=== PATIENT | male | born 1980 | race Caucasian/White ===

== ENCOUNTER 2018-08-09 23:37 | Emergency (ER) | payer OTHER, SELFPAY ==
[2018-08-09 23:37] VITALS: BP 160/90; PULSE 61; RESP 17; TEMP 37.2; O2SAT 99; BMI 22.3
--- NOTE | 2018-08-10 00:09 | CT_ITS ---
HISTORY: abd pain with nausea x 1 day, emesis, c/o neck pain also EXAMINATION: CT Abdomen And Pelvis W/ Contrast TECHNIQUE: Helically acquired images were obtained of the abdomen and pelvis following IV contrast. A radiation dose optimization technique was used for this scan. IV Contrast dosage and agent: 100ml Isovue 370 Oral contrast: None. COMPARISON: None FINDINGS: Lower thorax: Clear. Food debris within the stomach lumen. Normal liver, spleen, pancreas, gallbladder, and biliary system. Both kidneys are normal in position. Bilateral renal opacification without evidence of hydronephrosis, pyelonephritis, or suspicious renal lesion. Adrenal glands are not enlarged. Normal abdominal aorta and IVC. No ascites or retroperitoneal lymph node enlargement. GI tract: No obstruction. Moderate to large colonic stool. Normal appendix. Pelvis: No free fluid or lymphadenopathy. Normal urinary bladder. Bones: No acute osseous abnormality. CT/Abdomen/Pelvis WITH Contrast IMPRESSION: 1. Constipation pattern. No acute disease seen. Normal appendix. Individualized dose optimization techniques were used for this CT. at 0326 Reported and signed by: Haresh Nixon MD Electronically Signed: Haresh Nixon, at 3:25 EDT Tel , Service support ,
--- NOTE | 2018-08-10 00:10 | ED.VISSUMM ---
- ER Visit Summary Date of Service: 08/10/18 Chief Complaint: Abdominal pain History of Present Illness: The patient is a 38 M who presents with abdominal pain that began today. Patient states the pain is gradually gotten worse over the past 4 hours. Patient describes the pain as burning and stabbing. Patient states the pain is diffuse across his abdomen but worse over the epigastric area. Patient admits to nausea but denies any vomiting. Patient denies any diarrhea, melena, or hematochezia. Patient denies any dysuria or hematuria. Patient states he does have some pain into his back. Patient also complains of some upper back and neck pain that has been persistent over the past couple weeks. Physical Examination: Vital signs are stable. Patient is afebrile. Patient is in no acute distress. Oral mucosa is pink and moist. Neck is supple. Trachea is midline. There is no JVD noted. Heart was regular rate and rhythm. Lungs are clear and equal bilaterally. Abdomen is soft. There is diffuse tenderness but worse in the epigastric area. There is no rebound or guarding noted. Cranial nerves II through XII are intact. There are no focal motor or sensory deficits noted. The remaining physical exam is within normal limits. Test Results: CBC and basic metabolic profile were obtained and were essentially within normal limits. BUN and creatinine were slightly elevated at [address] scan of the abdomen and pelvis was obtained. There is no acute abnormality noted. Emergency Department Course and Treatment: Patient was given IV fluids, morphine, and Zofran here. Patient felt better on reevaluation. Patient was sleeping on reevaluation. Patient was instructed to start with a bland diet and advance as tolerated. Patient was instructed to follow-up with his primary care physician for further evaluation of his abdominal pain. Patient and his understood and were agreeable with the plan. All questions were answered. Disposition: Discharge home Impression: Upper abdominal pain This note was generated with [employer] dictation software. It may contain incorrect words, spelling, and punctuation that were not noted in review of the chart prior to signing ED Disposition - Plan for ED Patient: Disposition: Home or Assisted Living Diagnosis: Upper abdominal pain of unknown etiology Instructions: ED Abdominal Pain Unkn Cause Referrals: Care Physician,No Primary [Primary Care Provider] - Teressa Daniels MD [COURTESY STAFF PHYSICIAN] - 5-7 Days
[2018-08-10] MEDS: Ondansetron 4 MG/2 ML Vial IV (00:20)
[2018-08-10] MEDS: Morphine 4 MG/ML Syringe IV (00:20)
[2018-08-10] MEDS: 0.9% Normal Saline 1,000 ML 1000 ML IV (00:20)
[2018-08-10 00:34] LABS: Absolute Lymphocyte Count 1.61 X10^3/ul (0.83-4.51); Absolute Neutrophil Count 5.4 X10^3/uL (2.0-7.7); Basophil# 0.02 X10^3/uL; Basophil% 0.3 % (0-1); Eosinophil# 0.07 X10^3/uL; Eosinophils% 0.9 % (0-5); Hematocrit 43.5 % (40-54); Hemoglobin 15.1 g/dl (13.0-16.5); Lymphocyte # 1.61 X10^3/ul (4.0); Lymphocyte % 21.6 % (19-41); Mean Corp Hgb Conc 34.7 g/gl (32-36); Mean Corpuscular Hgb 30.9 pg (27.0-32.0); Mean Corpuscular Volume 89.1 fL (80-94); Mean Platelet Vol. 10.2 fl (6.2-12.0); Monocyte# 0.36 X10^3/uL; Monocyte% 4.8 % (0-10); Neutrophil % 72.3 % (47-70); Platelet Count 213 K/mm3 (150-450); RBC Distribution Width CV 11.9 % (11.6-14.6); RBC Distribution Width SD 38.3 fl (35.1-43.9); Red Blood Count 4.88 M/mm3 (4.6-6.2); White Blood Count 7.5 K/mm3 (4.4-11.0)
[2018-08-10 00:36] LABS: POSITIVE COUNT NO; POSITIVE DIFFERENTIAL NO; POSITIVE MORPHOLOGY NO
[2018-08-10 00:37] LABS: ALB/GLOB Ratio 1.2 RATIO (0.9-2.4); AST(SGOT) 21 U/L (15-37); Alanine Aminotransfer ALT/SGPT 29 U/L (16-61); Albumin, Serum 3.9 g/dL (3.2-5.0); Alkaline Phosphatase 52 U/L (45-117); Anion Gap 7 (5-15); BUN 25 mg/dL (7-18); BUN/Creat Ratio 16.6 RATIO (10-20); Calcium,Total 8.6 mg/dL (8.5-10.1); Chloride 106 mmol/L (98-107); Creatinine, Serum 1.51 mg/dL (0.70-1.30); EST Glomerular Filtration Rate 55 mL/min (>60); Est Glom Filt Rate - Afr Amer 67 mL/min (>60); Estimated Creatinine Clearance 66.92 ml/min; Globulin 3.3 g/dL (2.2-4.2); Glucose 124 mg/dL (74-106); Lipase 132 U/L (73-393); Protein, Total 7.2 g/dL (6.4-8.2); Sodium Level 140 mmol/L (136-145)
[2018-08-10 02:19] LABS: Bacteria 0 SEEN /hpf (None Seen); Mucous, Urine 0 SEEN /hpf (<or=2+); Red Blood Cells-Urine 0 SEEN /hpf (0-5); Squamous Epithelial Cells - UA 0 SEEN /hpf (0-5); White Blood Cells 0 SEEN /hpf (0-5)
[2018-08-10 02:20] LABS: Color, Urine Yellow (Yellow); Glucose, Dipstick Normal (Normal); Ketone-Dipstick Negative (Negative); Leukocyte Esterase-Dipstick Negative /ul (Negative); Nitrite-Dipstick Negative (Negative); Occult Blood-Urine Negative /ul (Negative); Protein-Dipstick Negative (Negative); Specific Gravity, Urine 1.015 (1.002-1.030); Urine Bilirubin Dipstick Negative (Negative); Urine Clarity Clear (Clear); Urine Urobilinogen Normal (Normal)
[2018-08-10 03:50] VITALS: BP 130/90; PULSE 70; RESP 16; O2SAT 96
== END 2018-08-10 03:51 | disposition home or self-care (01) ==
PROVIDERS: Emergency Provider Emergency Medicine
DX: R10.10 Upper abdominal pain, unspecified (principal); F17.220 Nicotine dependence, chewing tobacco, uncomplicated
CPT/HCPCS: 74177; 80053; 81001; 83690; 85025; 96361; 96374; 96375; 99283; J7030; Q9967; A4216; J2405

== ENCOUNTER 2023-12-30 20:20 | Emergency (ER) | payer OTHER, SELFPAY ==
[2023-12-30 20:21] VITALS: BP 129/87; PULSE 92; RESP 16; TEMP 37.3; O2SAT 99; BMI 26.8
[2023-12-30 22:21] VITALS: BP 120/84; PULSE 88; RESP 20; O2SAT 94
[2023-12-30] MEDS: predniSONE 20 MG Tablet 60 MG PO (22:47)
[2023-12-30] MEDS: Albuterol Sulfate 8 gm Inhaler (60 puffs) 4 PUFF INHALATION (22:47)
[2023-12-30 22:50] LABS: Absolute Lymphocyte Count 1.87 X10^3/uL (0.83-4.51); Absolute Neutrophil Count 9.4 X10^3/uL (2.0-7.7); Basophil# 0.08 X10^3/uL; Basophil% 0.6 % (0-1); Eosinophil# 0.12 X10^3/uL; Hematocrit 41.5 % (40-54); Lymphocyte # 1.87 X10^3/ul (0.83-4.51); Lymphocyte % 15.1 % (19-41); Mean Corp Hgb Conc 33.7 g/dL (32-36); Mean Corpuscular Hgb 29.4 pg (27.0-32.0); Mean Corpuscular Volume 87.2 fL (80-94); Mean Platelet Vol. 9.3 fl (6.2-12.0); Monocyte# 0.81 X10^3/uL; Monocyte% 6.6 % (0-10); NRBC Flagged by Analyzer 0 % (0-5); Neutrophil # 9.35 X10^3/uL (2.7-7.7); Neutrophil % 75.6 % (47-70); Platelet Count 354 K/mm3 (150-450); RBC Distribution Width CV 11.5 % (11.6-14.6); RBC Distribution Width SD 37.2 fl (35.1-43.9); Red Blood Count 4.76 M/mm3 (4.6-6.2); White Blood Count 12.4 K/mm3 (4.4-11.0)
--- NOTE | 2023-12-30 22:55 | RAD_ITS ---
INDICATION: Fever, cough, wheezing x 10 days EXAMINATION/TECHNIQUE: X-RAY - XR Chest 2 Views COMPARISON: July 01, 2005. FINDINGS: LINES/DEVICES: None. LUNGS: No consolidation, edema or effusion. Mild bilateral peribronchial thickening, most prominent in the lung bases. No pneumothorax. MEDIASTINUM AND CARDIOVASCULAR STRUCTURES: Cardiac silhouette not enlarged. BONES AND SOFT TISSUES: Unremarkable. RAD/Chest PA and Lateral IMPRESSION: No radiographic evidence of consolidative airspace disease. Mild peribronchial thickening as can be seen with bronchitis/bronchiolitis Electronically Signed: Haresh Anthony MD at 23:28 EDT ,
[2023-12-30 23:23] LABS: ALB/GLOB Ratio 0.6 RATIO (0.9-2.4); AST(SGOT) 38 U/L (15-37); Alanine Aminotransfer ALT/SGPT 65 U/L (16-61); Alkaline Phosphatase 56 U/L (45-117); Anion Gap 6 (5-15); BUN 12 mg/dL (7-18); BUN/Creat Ratio 10.9 RATIO (10-20); Calcium,Total 9.3 mg/dL (8.5-10.1); Chloride 99 mmol/L (98-107); EST Glomerular Filtration Rate 78 mL/min (>60); Est Glom Filt Rate - Afr Amer 94 mL/min (>60); Estimated Creatinine Clearance 93.17 ml/min; Globulin 4.7 g/dL (2.2-4.2); Glucose 107 mg/dL (74-106); Potassium 3.3 mmol/L (3.5-5.1); Protein, Total 7.7 g/dL (6.4-8.2); Sodium Level 134 mmol/L (136-145)
--- NOTE | 2023-12-30 23:36 | EX.ED.DYSGE1 ---
HPI History of Present Illness Chief Complaint: Cold Sx Detail of Chief Complaint: Respiratory symptoms and illness x 10 days Informant: patient and spouse/S.O. Onset/Context/Timing Onset: Weeks (1.5) Context: Sudden Onset Timing: Continuous and Waxes and wanes Quality: Detailed HPI narrative Location: [facility] Current Severity: Mild Maximum Severity: Moderate Worsened by: Dyspnea with exertion, wheezing Relieved by: Nothing Associated Symptoms Associated Symptoms: Respiratory and episode of diarrhea Narrative Narrative: Patient is a 43-year-old healthy male with no significant past medical history on no medication and no allergies who presents with illness that started 10 days ago. He Tmax of 104.5 degrees. He complains of fatigue, lack of energy, dyspnea and dyspnea on exertion. He denies headache. He denies ocular, visual or auditory symptoms. He does endorse congestion and slight sore throat. He does have a cough that he states is horrible . And is productive. He is a non-smoker. He has not had an alcoholic beverage in weeks. His and son were ill approximately a week ago. He does endorse aches. He denies joint swelling. He does have a rash on his chest. He has had some intermittent nausea without vomiting. He did have episode of diarrhea earlier in the illness What concern patient was the persistent fever and the fact that he has no energy and unable to work. 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 Prior similar symptoms: Yes Recent Illness/Hospitalization: No PFSH PFSH Medical History no medical history no medical history Home Medications ?Medication ?Instructions ?Recorded ?Last Taken ?Type doxycycline monohydrate 100 mg 100 mg PO BID #14 CAPSULES 12/30/23 Unknown Rx capsule prednisone 20 mg tablet 60 mg (3 x 20 mg) PO DAILY #12 12/30/23 Unknown Rx TABLETS Allergy/AdvReac Type Severity Reaction Status Date / Time No Known Allergies Allergy Verified 12/30/23 20:24 Surgical History H/O right knee surgery Social History (Updated 12/30/23 @ 23:[address] Yayo Calixto MD) household members: spouse and children Smoking Status: Never smoker details: Social substance use type: does not use ROS ROS ED Constitutional Constitutional ED: Reports chills and fever(s); Denies subjective, sweats or weight loss Eyes Eyes: Denies blurry vision or change in vision ENT ENT ED: Reports rhinorrhea and sore throat; Denies ear pain Cardiovascular Cardiovascular: Denies chest pain, orthopnea, palpitations or paroxysmal nocturnal dyspnea Respiratory/Chest Respiratory/Chest: Reports cough, dyspnea and dyspnea on exertion; Denies orthopnea or paroxysmal nocturnal dyspnea Gastrointestinal Gastrointestinal: Reports diarrhea and nausea; Denies abdominal pain, constipation, melena or vomiting Genitourinary Genitourinary ED: Denies dysuria, hematuria or urinary frequency Musculoskeletal Musculoskeletal: Reports arthralgias and myalgias; Denies back pain or neck pain Integumentary Reports rash Neurologic Neurologic: Reports weakness; Denies headache(s) or paresthesias Hematologic/Lymphatic Hematologic/Lymphatic: Reports systems reviewed and no addt'l complaints, except as documented EXAM Physical Exam Const Vital Signs: 12/30/23 20:21 12/30/23 22:21 12/30/23 22:36 Temperature 99.1 F Temperature Source Oral Pulse Rate 92 88 Respiratory Rate 16 20 H Respiratory Effort Short of Breath Respiratory Pattern Tachypnea Blood Pressure 129/87 H 120/84 H Blood Pressure Mean 101 96 Pulse Ox 99 94 Oxygen Delivery Method Room Air Room Air 12/30/23 22:39 Temperature Temperature Source Pulse Rate Respiratory Rate Respiratory Effort Short of Breath Respiratory Pattern Tachypnea Blood Pressure Blood Pressure Mean Pulse Ox Oxygen Delivery Method Room Air Positive well nourished and well developed Constitutional Narrative: Patient appears ill. Does not appear toxic. Vital signs are marked for tachypnea. He is not hypoxic or febrile. He did not take antipyretic prior to arrival. General Appearance ED: well developed and NAD; Negative for cyanotic, diaphoretic or pallor HEENT Reports TM's clear and moist mucous membranes HEENT Narrative: Nares patent with no discharge. Posterior pharynx is normal. Tympanic Membrane ED: Yes TM's clear Eyes PERRL and EOMs intact bilaterally General Eye ED: Negative for pale conjunctiva or scleral icterus Neck no lymphadenopathy, supple and no JVD Chest Wall palpation of chest normal; Negative for inspection of chest normal Chest Narrative: Patient has evidence of folliculitis. Resp normal respiratory effort and No clear to auscultation bilaterally Auscultation: wheezes expiratory wheezes and throughout Cardio regular rate, regular rhythm, S1 normal heart sound, S2 normal heart sound and no murmurs GI normal to inspection, nondistended, normoactive bowel sounds, non-tender, non-distended and no masses; Negative for hepatosplenomegaly Back/Spine no CVA tenderness Extremity normal to inspection General Extremety ED: Negative for edema or tenderness General Extremity: Negative for edema Neuro oriented x3 and CN's II-XII intact bilaterally Sensorium / Orientation: alert Psych mental status grossly normal Skin No no rashes or lesions noted, no wounds and skin turgor normal Skin Narrative: Patient's rash is consistent with folliculitis. General Skin Exam: elasticity normal; Negative for jaundice or pallor MDM MDM MDM Narrative Medical decision making narrative: Nurse protocol orders were initiated. Differential diagnosis is viral infection, bacterial infection with pneumonia. Since he is wheezing is never used inhaler had respiratory therapy instructed how to use the inhaler. He also was treated with prednisone since he has been wheezing since last Friday. CBC was obtained assess white count differential. BMP to assess renal function. Chest x-ray was obtained. History & Record Review Discussion w/independent historian: Patient and Significant other Lab Data Attestation: I reviewed the patient's lab results. Lab results narrative: White count is elevated 12.4 thousand with shift. There is no bandemia. No evidence of anemia. Comprehensive metabolic panel is remarkable for elevated AST and ALT which may represent atypical pneumonia i.e. mycoplasma. Rapid antigen for COVID, influenza and RSV was negative. Labs: Laboratory Results - last 24 hr 12/30/23 22:39 WBC 12.4 H RBC 4.76 Hgb 14.0 Hct 41.5 MCV 87.2 MCH 29.4 MCHC 33.7 RDW Std Deviation 37.2 RDW Coeff of Rachana 11.5 L Plt Count 354 MPV 9.3 Immature Gran % (Auto) 1.100 H Neut % (Auto) 75.6 H Lymph % (Auto) 15.1 L Eagle % (Auto) 6.6 Eos % (Auto) 1.0 Baso % (Auto) 0.6 Absolute Neuts (auto) 9.4 H Absolute Lymphs (auto) 1.87 Nucleated RBC % 0 Sodium 134 L Potassium 3.3 L Chloride 99 Carbon Dioxide 29.0 Anion Gap 6 BUN 12 Creatinine 1.10 Estim Creat Clear Calc 93.17 Est GFR (MDRD) Af Amer 94 Est GFR (MDRD) Non-Af 78 BUN/Creatinine Ratio 10.9 Glucose 107 H Calcium 9.3 Total Bilirubin 0.60 AST 38 H ALT 65 H Alkaline Phosphatase 56 Total Protein 7.7 Albumin 3.0 L Globulin 4.7 H Albumin/Globulin Ratio 0.6 L Radiography Chest X-Ray - ED: 2 View and Read by ED Physician (Normal cardiac silhouette and size. There is evidence of atelectasis right lower lobe. There is some abnormal findings perihilar region. There is no Insa pneumothorax or effusion. [place] structures unremarkable.) Diagnostic Testing: Clinical Impression(s) from Imaging Studies Chest X-Ray 12/30/23 22:55 IMPRESSION: No radiographic evidence of consolidative airspace disease. Mild peribronchial thickening as can be seen with bronchitis/bronchiolitis Electronically Signed: Haresh Anthony MD at 23:28 EDT Reading Location ID and State: [facility] / [place] Tel , Service support , Treatment and Re-Evaluation :: Patient was reassessed at 2338. His wheezing had improved markedly with albuterol metered-dose inhaler. He was given first dose of doxycycline in the emergency department. He was discharged with prescription for prednisone and doxycycline. The inhaler was given to the patient. Discharge Plan Triage Chief Complaint: Cold Sx ED Provider: Yayo Calixto Dx/Rx/DC Orders Clinical Impression: Fever in adult, Purulent bronchitis, Acute bronchospasm, Leukocytosis, Elevated transaminase level Instructions: ED Upper Resp Infec Abx Tx, ED Bronchitis with Wheezing (Adult) Prescriptions: New prednisone 20 mg tablet 60 mg PO DAILY Qty: 12 0RF doxycycline monohydrate 100 mg capsule 100 mg PO BID Qty: 14 0RF Primary Care Provider: Chris Little Referrals: Chris Little, [Primary Care Provider] - 3-5 Days if not improving Activity Restrictions/Additional Instructions: 2 puffs of inhaler every 2-4 hours while awake for the next 3 to 5 days then every 4-6 hours as needed for wheezing Take prednisone and antibiotics until gone Print Language: Tamazight Disposition Disposition: Home, Self Care
[2023-12-30] MEDS: Doxycycline 100 MG CAPSULE PO (23:46)
[2023-12-30 23:47] VITALS: BP 127/87; PULSE 92; RESP 16; TEMP 36.6; O2SAT 99
== END 2023-12-30 23:52 | disposition home or self-care (01) ==
PROVIDERS: Emergency Provider Emergency Medicine; PCP Student in an Organized Health Care Education/Training Program; Visit Provider Emergency Medicine
DX: J41.1 Mucopurulent chronic bronchitis (principal); D72.829 Elevated white blood cell count, unspecified; R74.01 Elevation of levels of liver transaminase levels; R50.9 Fever, unspecified
CPT/HCPCS: 71046; 80053; 85025; 87631; 99285; J7030; A4216

== ENCOUNTER → 2024-10-09 | Outpatient (CLI) | payer OTHER, SELFPAY ==
--- OUTSIDE RECORDS SUMMARY | 2024-10-09 10:46 | XMS RPT_ITS | CCD ---
Author Organization [facility] Inform ion Partnership [facility] Care Team Providers Care Machine Ii Engraver Name Role Phone Unavailable Primary Care Provider Unavailfranklin e Chris Forrester DO Primary Care Provider [phone] Lashonda Wolff MD Unavailable CHRIS FORRESTER Referring Unavailable CHRIS FORRESTER Primary Care Unavailable Lashonda Wolff MD Unavailable Chris Forrester DO Primary Care Provider CHRIS FORRESTER Referring Unavailable CHRIS FORRESTER Primary Care Unavailable CHRIS FORRESTER Primary Care Unavailable LASHONDA WOLFF Attending Unavailable CHRIS FORRESTER Primary Care Unavailable LASHONDA WOLFF Referring Unavailable CHRIS FORRESTER Referring Unavailable AZUL KLEIN Attending Unavailable CHRIS FORRESTER Primary Care Unavailable CHRIS FORRESTER Primary Care Unavailable LASHONDA WOLFF Attending Unavailable CHRIS FORRESTER Primary Care Unavailable CHRIS FORRESTER Referring Unavailable CRHIS FORRESTER Primary Care Unavailable CHRIS FORRESTER Referring Unavailable CHRIS FORRESTER Primary Care Unavailable CHRIS FORRESTER Referring Unavailable CHRIS FORRESTER Attending Unavailable CHRIS FORRESTER Primary Care Unavailable CHRIS FORRESTER Primary Care Unavailable LASHONDA WOLFF Referring Unavailable CHRIS FORRESTER Attending Unavailable CHRIS FORRESTER Primary Care Unavailable Yayo Calixto Attending Unavailable Chris Forrester Primary Care Unavailable Medications Current Medications Medication Drug Class(es) Dates Sig (Normalized) Sig (Original) DAILY MULTI-VITAMIN ORAL (12 sources) DAILY MULTI-VITAMIN ORAL Take by mouth once daily. 0 Active Comment on above: Take by mouth once d aily. docusate sodium 100 mg oral capsule (12 sources) Start: 08-09-2011 take 1 capsule by mouth twice daily docusate sodium (COLACE) 100 mg ORAL capsule Take 1 capsule by mouth twice daily. 28 capsule 0 08/09/2011 Active Comment on above: Take 1 capsule by mo [facility] twice daily. iv contrast (will be provided with radiology test) (3 sources) Start: 07-12-2023 iv contrast (will be provided with radiology test) MRI Cardiac w/Qflow Inject, intravenously, once for 1 dose. No IV access, insert saline lock prior to the beginning of sedation, infusion, injection of imaging exam. Discontinue saline lock post exam. If Pt has a central line or IVAD, may access for administration according to line specific nursing protocol. Once exam is complete flush line and de-access according to line specific nursing protocol in the MR contrast administration guidelines link 1 Each 0 07/12/2023 Active Comment on above: MRI Cardiac w/Qflow Inject, intravenously, once for 1 dose. No IV access, insert saline lock prior to the beginning of sedation, infusion, injection of imaging exam. Discontinue saline lock post exam. If Pt has a central line or IVAD, may access for administration according to line specific nursing protocol. Once exam is complete flush line and de-access according to line specific nursing protocol in the MR contrast administration guidelines link 24 hr metoprolol succinate 25 mg extended release oral tablet (4 sources) beta-Adrenergic Ramon Start: 07-12-2023 End: 07-11-2024 take 1 tablet by mouth once daily metoprolol succinate ER (TOPROL XL) 25 mg 24 hr tablet Take 1 tablet by mouth once daily. 30 tablet 11 07/12/2023 07/11/2024 Active Comment on above: Take 1 tablet by [facility] once daily. sulfamethoxazole 800 mg / trimethoprim 160 mg oral tablet (12 sources) Dihydrofolate Reductase Inhibitor Antibacterial, Sulfonamide Antimicrobial Start: 08-20-2011 take 1 tablet by mouth twice daily sulfamethoxazole-t rimethoprim 800-160 mg ORAL per tablet Take 1 tablet by mouth twice daily. 14 tablet 0 08/20/2011 Active Comment on above: [facility] Problems Active Problems Problem Classification Problem Date Documented Da te Episodic/Chronic Cardiac dysrhythmias (2 sources) Ventricular tachycardia; Translations: [VT (ventricular tachycardia) (HCC)] 07-12-2023 Chronic Disorders of lipid metabolism (4 sources) Mixed hyperlipidemia; Translations: [Mixed hyperlipidemia] Onset: 05-07-2023 05-07-2023 Chronic Heart valve disorders (17 sources) Mitral valve prolapse; Translations: [Nonrheumatic mitral (valve) prolapse] Onset: 02-19-2023 02-19-2023 Chronic Malaise and fatigue (5 sources) Fatigue; Translations: [Other fatigue] Onset: 05-07-2023 05-07-2023 Episodic Unclassified (1 source) VT (ventricular tachycardia) (HCC); Translations: [VT (ventricular tachycardia) (HCC)] Onset: 10-08-2023 Past or Other Problems Problem Classification Problem Date Documented Da te Episodic/Chronic Abdominal hernia (5 sources) Umbilical hernia; Translations: [Umbilical hernia without obstruction or gangrene] Onset: 04-15-2023 05-07-2023 Episodic Cardiac dysrhythmias (13 sources) Palpitations; Translations: [Palpitations] Onset: 02-19-2023 02-19-2023 Episodic Fracture of lower limb (12 sources) Fracture of patella; Translations: [Unspecified fracture of right patella, initial encounter for closed fracture] Onset: 04-04-2011 04-04-2011 Episodic Nonspecific chest pain (14 sources) Chest pain; Translations: [Other chest pain] Onset: 02-19-2023 02-19-2023 Episodic Other and unspecified benign neoplasm (10 sources) Dysplastic nevus of trunk; Translations: [Melanocytic nevi of trunk] Onset: 02-19-2023 02-19-2023 Episodic Other and unspecified benign neoplasm (1 source) Melanocytic nevi of trunk; Translations: [Atypical nevus of abdominal wall] Onset: 02-19-2023 Episodic Other gastrointestinal disorders (11 sources) Finding of abdominopelvic segment of trunk; Translations: [Intra-abdominal and pelvic swelling, mass and lump, unspecified site] Onset: 02-19-2023 02-19-2023 Episodic Other gastrointestinal disorders (1 source) Intra-abdominal and pelvic swelling, mass and lump, unspecified site; Translations: [Intra-abdominal and pelvic swelling, mass and lump, unspecified site] Onset: 02-19-2023 Episodic Other injuries and conditions due to external causes (1 source) Open wound; Translations: [Other injury of unspecified body region, initial encounter] Onset: 08-20-2011 Resolved: 08-27-2011 08-27-2011 Episodic Other lower respiratory disease (11 sources) Chronic cough; Translations: [Chronic cough] Onset: 02-19-2023 02-19-2023 Episodic Residual codes; unclassified (11 sources) Family history of sudden cardiac ; Translations: [Family history of sudden cardiac ] Onset: 02-19-2023 02-19-2023 Episodic Residual codes; unclassified (11 sources) FH: premature coronary heart disease; Translations: [Family history of ischemic heart disease and other diseases of the circulatory system] Onset: 02-19-2023 02-19-2023 Episodic Residual codes; unclassified (2 sources) Family history of ischemic heart disease and other diseases of the circulatory system; Translations: [Family history of premature coronary artery disease] Onset: 02-19-2023 Episodic Residual codes; unclassified (2 sources) Family history of sudden cardiac ; Translations: [Family history of sudden cardiac in father] Onset: 02-19-2023 Episodic Results Test Name Value Interpretation Reference Range Facility CBC W/Diff, Automatedon 09-0 -2023 Absolute Lymph 1.87 X10 3/uL Normal 0.83-4.51 [facility] Comment on above: Performed By: #### L 100.0100, L500.4050 #### [facility] [address] [place], [address] Absolute Neut 9.4 X10 3/uL High 2.0-7.7 [facility] Comment on above: Performed By: #### L 100.0100, L500.4050 #### [facility] [address] [place], [address] Basophils/100 WBC (Bld) 0.6 % Normal 0-1 [facility] Comment on above: Performed By: #### L 100.0100, L500.4050 #### [facility] [address] [place], [address] Eosinophils/100 WBC (Bld) 1.0 % Normal 0-5 [facility] Comment on above: Performed By: #### L 100.0100, L500.4050 #### [facility] [address] [place], [address] Erythrocyte distribution width (RBC) [Ratio] 11.5 % Low 11.6-14.6 [facility] Comment on above: Performed By: #### L 100.0100, L500.4050 #### [facility] [address] [place], [address] Hematocrit (Bld) [Volume fraction] 41.5 % Normal 40-54 [facility] Comment on above: Performed By: #### L 100.0100, L500.4050 #### [facility] [address] [place], [address] Hemoglobin (Bld) [Mass/Vol] 14.0 g/dL Normal 13.0-16.5 [facility] Comment on above: Performed By: #### L 100.0100, L500.4050 #### [facility] [address] [place], [address] IG% 1.100 High 0.0-0.9 [facility] Comment on above: Result Comment: IG% - Immature Granulocytes (promyelocytes, myelocytes and metamyelocytes) > 1% indicates that a LEFT SHIFT is Present. Performed By: #### L 100.0100, L500.4050 #### [facility] [address] [place], [address] Lymphocytes/100 WBC (Bld) 15.1 % Low 19-41 [facility] Comment on above: Performed By: #### L 100.0100, L500.4050 #### [facility] [address] [place], [address] MCH (RBC) [Entitic mass] 29.4 pg Normal 27.0-32.0 [facility] Comment on above: Performed By: #### L 100.0100, L500.4050 #### [facility] [address] [place], [address] MCHC (RBC) [Mass/Vol] 33.7 g/dL Normal 32-36 [facility] Comment on above: Performed By: #### L 100.0100, L500.4050 #### [facility] [address] [place], [address] MCV (RBC) [Entitic vol] 87.2 fL Normal 80-94 [facility] Comment on above: Performed By: #### L 100.0100, L500.4050 #### [facility] [address] [place], [address] Monocytes/100 WBC (Bld) 6.6 % Normal 0-10 [facility] Comment on above: Performed By: #### L 100.0100, L500.4050 #### [facility] [address] [place], [address] Neutrophils/100 WBC (Bld) 75.6 % High 47-70 [facility] Comment on above: Performed By: #### L 100.0100, L500.4050 #### [facility] [address] [place], [address] Nucleated RBC (Bld) [#/Vol] 0 10*3/uL Normal 0-5 [facility] Comment on above: Performed By: #### L 100.0100, L500.4050 #### [facility] [address] [place], [address] Platelet mean volume (Bld) [Entitic vol] 9.3 fL Normal 6.2-12.0 [facility] Comment on above: Performed By: #### L 100.0100, L500.4050 #### [facility] [address] [place], [address] Platelets (Bld) [#/Vol] 354 10*3/uL Normal 150-450 [facility] Comment on above: Performed By: #### L 100.0100, L500.4050 #### [facility] [address] [place], [address] RBC (Bld) [#/Vol] 4.76 10*6/uL Normal 4.6-6.2 [facility] Comment on above: Performed By: #### L 100.0100, L500.4050 #### [facility] [address] [place], [address] RDW SD 37.2 fl Normal 35.1-43.9 [facility] Comment on above: Performed By: #### L 100.0100, L500.4050 #### [facility] [address] [place], [address] WBC (Bld) [#/Vol] 12.4 10*3/uL High 4.4-11.0 [facility] Comment on above: Performed By: #### L 100.0100, L500.4050 #### [facility] [address] [place], [address] Chest PA and Lateralon 12-29 Chest PA and Lateral [facility] [address] [place] [address] Chest PA and Lateral MR#: [id number] Acct: [id number] Name: ALL GASTELUM Rep #: [id number] : 1980 M 43 From: Haresh Anthony MD PCP: Dr. Chris Forrester, Status: [facility] ER Study: Chest PA and Lateral Date of Exam: 12/30/23 Exam# [id number] Ordering Dr: [place] [id number] INDICATION: Fever, cough, wheezing x 10 days EXAMINATION/TECHNIQUE: X-RAY - XR Chest 2 Views COMPARISON: July 01, 2005. FINDINGS: LINES/DEVICES: None. LUNGS: No consolidation, edema or effusion. Mild bilateral peribronchial thickening, most prominent in the lung bases. No pneumothorax. MEDIASTINUM AND CARDIOVASCULAR STRUCTURES: Cardiac silhouette not enlarged. BONES AND SOFT TISSUES: Unremarkable. RAD/Chest PA and Lateral IMPRESSION: No radiographic evidence of consolidative airspace disease. Mild peribronchial thickening as can be seen with bronchitis/bronchioliti s Electronically Signed: Haresh Anthony MD at 23:28 EDT , CC: Dr. Chris Forrester, ; Dr. Yayo Calixto MD 911 Operator: Signed Normal [facility] Comprehensive Metabolic Prof ilon 12-30-2023 Albumin [Mass/Vol] 3.0 g/dL Low 3.2-5.0 [facility] Comment on above: Performed By: #### L 100.0100, L500.4050 #### [facility] [address] [place], [address] Albumin/Globulin [Mass ratio] 0.6 {ratio} Low 0.9-2.4 [facility] Comment on above: Performed By: #### L 100.0100, L500.4050 #### [facility] [address] [place], [address] ALK P 56 U/L Normal 45-117 [facility] Comment on above: Performed By: #### L 100.0100, L500.4050 #### [facility] [address] [place], [address] ALT [Catalytic activity/Vol] 65 U/L High 16-61 [facility] Comment on above: Performed By: #### L 100.0100, L500.4050 #### [facility] [address] [place], [address] AST [Catalytic activity/Vol] 38 U/L High 15-37 [facility] Comment on above: Performed By: #### L 100.0100, L500.4050 #### [facility] [address] [place], [address] Bilirubin [Mass/Vol] 0.60 mg/dL Normal 0.20-1.00 [facility] Comment on above: Result Comment: For patients on eltrombopag therapy, use of Dimension [place] TBIL is not recommended. Performed By: #### L 100.0100, L500.4050 #### [facility] [address] [place], [address] BUN/CRE 10.9 RATIO Normal 10-20 [facility] Comment on above: Performed By: #### L 100.0100, L500.4050 #### [facility] [address] [place], [address] CA,Total 9.3 mg/dL Normal 8.5-10.1 [facility] Comment on above: Performed By: #### L 100.0100, L500.4050 #### [facility] [address] [place], [address] Chloride [Moles/Vol] 99 mmol/L Normal 98-107 [facility] Comment on above: Performed By: #### L 100.0100, L500.4050 #### [facility] [address] [place], [address] CO2 [Moles/Vol] 29.0 mmol/L Normal 21.0-32.0 [facility] Comment on above: Performed By: #### L 100.0100, L500.4050 #### [facility] [address] [place], [address] Creatinine [Mass/Vol] 1.10 mg/dL Normal 0.70-1.30 [facility] Comment on above: Result Comment: The validity of the calculated GFR GFRAA in patients over 70 years has not been determined. Clinical correlation is essential. Performed By: #### L 100.0100, L500.4050 #### [facility] [address] [place], [address] ECRCL 93.17 ml/min Normal [facility] Comment on above: Performed By: #### L 100.0100, L500.4050 #### [facility] [address] [place], [address] EST GFR - AA 94 mL/min Normal >60 [facility] Comment on above: Result Comment: Afri can Dutch GFR Calc Performed By: #### L 100.0100, L500.4050 #### [facility] [address] [place], [address] GAP 6 Normal 5-15 [facility] Comment on above: Performed By: #### L 100.0100, L500.4050 #### [facility] [address] [place], [address] GFR/1.73 sq M.predicted among non-blacks MDRD (S/P/Bld) [Vol rate/Area] 78 mL/min/{1.73_m2} Normal >60 [facility] Comment on above: Result Comment: Non- GFR Calc Performed By: #### L 100.0100, L500.4050 #### [facility] [address] [place], [address] Globulin (S) [Mass/Vol] 4.7 g/dL High 2.2-4.2 [facility] Comment on above: Performed By: #### L 100.0100, L500.4050 #### [facility] [address] [place], [address] Glucose [Mass/Vol] 107 mg/dL High 74-106 [facility] Comment on above: Result Comment: Fast ing Glucose result from 100 to 125 mg/dL suggests IMPAIRED HOMEOSTASIS per A.D.A. criteria. Performed By: #### L 100.0100, L500.4050 #### [facility] [address] [place], [address] Potassium [Moles/Vol] 3.3 mmol/L Low 3.5-5.1 [facility] Comment on above: Performed By: #### L 100.0100, L500.4050 #### [facility] [address] [place], [address] Sodium [Moles/Vol] 134 mmol/L Low 136-145 [facility] Comment on above: Performed By: #### L 100.0100, L500.4050 #### [facility] [address] [place], [address] T PROT 7.7 g/dL Normal 6.4-8.2 [facility] Comment on above: Performed By: #### L 100.0100, L500.4050 #### [facility] [address] [place], [address] Urea nitrogen [Mass/Vol] 12 mg/dL Normal 7-18 [facility] Comment on above: Performed By: #### L 100.0100, L500.4050 #### [facility] [address] [place], [address] Emergency Department Summary on 12-30-2023 Emergency Department Summary [facility] Medical Records Department [address] [place] [address] Emergency Department Summary 12/30/23 MR#: [id number] Acct: [id number] Name: ALL GASTELUM Rep #: [id number] : 1980 43 From: Yayo Calixto MD PCP: Dr. Chris Forrester, DO Status:REG ER Location: ED HPI History of Present Illness Chief Complaint: Cold Sx Detail of Chief Complaint: Respiratory symptoms and illness x 10 days Informant: patient and spouse/S.O. Onset/Context/Timing Onset: Weeks (1.5) Context: Sudden Onset Timing: Continuous and Waxes and wanes Quality: Detailed HPI narrative Location: [facility] Current Severity: Mild Maximum Severity: Moderate Worsened by: Dyspnea with exertion, wheezing Relieved by: Nothing Associated Symptoms Associated Symptoms: Respiratory and episode of diarrhea Narrative Narrative: Patient is a 43-year-old healthy male with no significant past medical history on no medication and no allergies who presents with illness that started 10 days ago. He Tmax of 104.5 degrees. He complains of fatigue, lack of energy, dyspnea and dyspnea on exertion. He denies headache. He denies ocular, visual or auditory symptoms. He does endorse congestion and slight sore throat. He does have a cough that he states is horrible . And is productive. He is a non-smoker. He has not had an alcoholic beverage in weeks. His and son were ill approximately a week ago. He does endorse aches. He denies joint swelling. He does have a rash on his chest. He has had some intermittent nausea without vomiting. He did have episode of diarrhea earlier in the illness What concern patient was the persistent fever and the fact that he has no energy and unable to work. 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 Prior similar symptoms: Yes Recent Illness/Hospitalization : No PFSH PFSH Medical History no medical history no medical history Home Medications ???Medication ???Instructions ???Recorded ???Last Taken ???Type doxycycline monohydrate 100 mg 100 mg PO BID #14 CAPSULES 12/30/23 Unknown Rx capsule prednisone 20 mg tablet 60 mg (3 x 20 mg) PO DAILY #12 12/30/23 Unknown Rx TABLETS Allergy/AdvReac Type Severity Reaction Status Date / Time No Known Allergies Allergy Verified 12/30/23 20:24 Surgical History H/O right knee surgery Social History (Updated 12/30/23 @ 23:[address] Yayo Calixto MD) household members: spouse and children Smoking Status: Never smoker details: Social substance use type: does not use ROS ROS ED Constitutional Constitutional ED: Reports chills and fever(s); Denies subjective, sweats or weight loss Eyes Eyes: Denies blurry vision or change in vision ENT ENT ED: Reports rhinorrhea and sore throat; Denies ear pain Cardiovascular Cardiovascular: Denies chest pain, orthopnea, palpitations or paroxysmal nocturnal dyspnea Respiratory/Chest Respiratory/Chest: Reports cough, dyspnea and dyspnea on exertion; Denies orthopnea or paroxysmal nocturnal dyspnea Gastrointestinal Gastrointestinal: Reports diarrhea and nausea; Denies abdominal pain, constipation, melena or vomiting Genitourinary Genitourinary ED: Denies dysuria, hematuria or urinary frequency Musculoskeletal Musculoskeletal: Reports arthralgias and myalgias; Denies back pain or neck pain Integumentary Reports rash Neurologic Neurologic: Reports weakness; Denies headache(s) or paresthesias Hematologic/Lymphatic Hematologic/Lymphatic: Reports systems reviewed and no addt'l complaints, except as documented EXAM Physical Exam Const Vital Signs: 12/30/23 20:21 12/30/23 22:21 12/30/23 22:36 Temperature 99.1 F Temperature Source Oral Pulse Rate 92 88 Respiratory Rate 16 20 H Respiratory Effort Short of Breath Respiratory Pattern Tachypnea Blood Pressure 129/87 H 120/84 H Blood Pressure Mean 101 96 Pulse Ox 99 94 Oxygen Delivery Method Room Air Room Air 12/30/23 22:39 Temperature Temperature Source Pulse Rate Respiratory Rate Respiratory Effort Short of Breath Respiratory Pattern Tachypnea Blood Pressure Blood Pressure Mean Pulse Ox Oxygen Delivery Method Room Air Positive well nourished and well developed Constitutional Narrative: Patient appears ill. Does not appear toxic. Vital signs are marked for tachypnea. He is not hypoxic or febrile. He did not take antipyretic prior to arrival. General Appearance ED: well developed and NAD; Negative for cyanotic, diaphoretic or pallor HEENT Reports TM's clear and moist mucous membranes HEENT Narrative: Nares patent with no discharge. Posterior pharynx is normal. Tympanic Membrane ED: Yes TM's clear Eyes PERRL and (more content not included)... Normal [facility] M100.678on 12-30-2023 M100.678 Pending SARS-CoV-2 (COVID 19) Negative INFLUENZA A Negative INFLUENZA B Negative RSV PCR Negative Normal [facility] Comment on above: Performed By: #### M 100.678 #### [facility] [address] [place], [address] MR Heart cine for blood flow velocity mappingon 10-08-2023 IMPRESSION: Overall, essentially normal study. - The left ventricle is normal in size (LV EDVi = 91 ml/m ). The left ventricular systolic function is normal (LV EF = 57 %). Normal LV wall motion and thickness. No evidence of myocardial edema on T2. No delayed gadolinium enhancement to suggest prior myocardial ischemic injury, scar, or fibrosis. - The right ventricle is normal in size (RV EDVi = 97 ml/m ). The right ventricular systolic function is normal (RV EF = 51 %). -No significant valvular abnormalities. No definitive mitral valve prolapse. Trace mitral regurgitation. - The patient has not had a prior [facility] cardiac MR exam for comparison. * * * Final * * * RP 911 Operator: [employer] Date/Time: Oct 08 2023 11:18A Dictated by : DEENA HAYDEN MD This examination was interpreted and the report reviewed and electronically signed by: DEENA HAYDEN MD on Oct 08 2023 3:27PM [facility] OF RADIOLOGY * * *Final Report* * * DATE OF EXAM: Oct 08 2023 11:58AM [facility] 0704 - MRI CARDIAC VELOCITY FLOW MAP / PROCEDURE REASON: VT (ventricular tachycardia) ([facility]) * * * * Physician Interpretation * * * * Cardiac MRI Report: [facility] Date of service: 10/08/2023 11:18:51 AM Linked orders:[id number] CARDIAC VELOCITY FLOW MAP;[id number] CARD MORPH FUNC WO/W IVCON. Ordering physician: LAHSONDA WOLFF Technologist: KILO PATTEN Fellow: Gerry Mcfadden MD and Adri Silva Interpreting physician: Deena Hayden MD PATIENT: Name: MR. ALL GASTELUM Age: 43 years Gender: M MRI Scanner: Siemens Abril 1.5T 43 year old male with hx of MVP, and family hx of SCD who is being evaluated for palpitations. This study is performed to quantify left/right ventricular size and function, valvular function, and to perform tissue characterization for the assessment of myocardial fibrosis/edema. MRI Techniques: * Turbo spin echo and gradient echo imaging for anatomic definition. * Dynamic cine imaging (SSFP and GRE) for cardiac chamber and wall-motion analysis, and valvular analysis. * Flow quantification sequences for hemodynamics in 2 locations: aortic root and mid-ascending aorta. * Delayed gadolinium enhancement analysis after injection of gadolinium-chelate. * T2-STIR edema-weighted imaging. * T1 mapping. * T2 mapping. Gadolinium Agent: 15 cc of Gadavist was administered. Baseline vital signs: 51 bpm Height: 176.00 cm BSA: 2.11 m Weight: 91.00 kg BMI: 29.4 kg/m FINDINGS: Extracardiac findings: The chest wall appears normal. The mediastinum is normal. No significant adenopathy is identified. Limited imaging of the lungs reveals no gross abnormalities. Cardiac structures: The cardiac chambers demonstrate normal atrioventricular and normal ventriculoarterial concordance. Systemic and pulmonary venous return is normal. Aorta: Sinus: 3.2 cm Mid ascendin.9 cm Arch: Left Arch vessel branching pattern: normal Arch branch vessels: Widely patent Pulmonary Arteries: Pulmonary Arteries: Normal Measurements: - Main pulmonary artery diameter: 2.4 cm Left Atrium: The left atrium is normal in size. LA volume: 45 ml (normal range: 31-112 ml) LA volume index: 21 ml/m (normal range: 17-59 ml/m ) LA area (4ch): 18 cm LA area (2ch): 15 cm Right Atrium: The right atrium is normal in size. RA volume: 102 ml (normal range: 24-105 ml) RA volume index: 49 ml/m (normal range: 15-61 ml/m ) RA area (4ch): 25 cm Left Ventricle: The left ventricle is normal in size. Left ventricular systolic function is normal. value (normal range) indexed (normal range) EDV: 193 ml (83-207 ml) EDVi: 91 ml/m (47-107 ml/m ) ESV: 82 ml (19-88 ml) ESVi: 39 ml/m (11-47 ml/m ) SV: 110 ml (55-127 ml) SVi: 52 ml/m (30-66 ml/m ) EF: 57 % (51-76 %) CO: 5.7 l/min (3.9-8.3 l/min) CI: 2.7 l/min/m (2.1-4.3 ml/min/m ) mass: 115 g (57-152 g) LVMi: 54 g/m (36-75 g/m ) LV segment wall thickness: basal anteroseptum: 0.9 cm basal septum: 0.7 cm basal inferolateral: 0.6 cm Wall Motion: There are no wall motion abnormalities. Delayed Enhancement: There is no delayed enhancement. There is no ischemic myocardial damage. There is no interstitial fibrosis. Delayed gadolinium enhancement: imaging reveals uniformly nulled myocardium, signifying that there has been no prior ischemic myocardial damage. There is also no definite evidence of interstitial fibrosis on delayed enhancement imaging to suggest an infiltrative process. Constellation of findings could be suggestive of No significant myocardial disease. Right Ventricle: The right ventricle is normal in size. Right ventricular systolic function is normal. value (normal range) indexed (normal range) EDV: 204 ml (87-244 ml) EDVi: 97 ml/m (53-123 ml/m ) ESV: 100 ml (29-117 ml) ESVi: 47 ml/m (17-59 ml/m ) SV: 104 ml (43-146 ml) SVi: 49 ml/m (28-75 ml/m ) EF: 51 % (42-72 %) CO: 5.3 l/min (2.8-8.3 l/min) CI: 2.5 l/min/m (1.5-4.5 l/min/m ) T1 / T2 / ECV T2 * : +------+ +--- ---+ +-----+ -------+----+ T1 pre (ms) +/- T1 post (ms) +/- ECV (%) +/- +------+ +--- ---+ +-----+ -------+----+ Base 1012.19 86.23 382.03 38.05 25.05 7.82 +------+ +--- ---+ +-----+ -------+----+ Mid 992.60 92.09 368.98 47.06 24.34 5.71 +------+ +--- ---+ +-----+ -------+----+ [place] 972.27 108.89 359.44 51.53 28.26 6.84 +------+ +--- ---+ +-----+ -------+----+ Global 996.92 94.89 372.52 45.38 25.54 7.13 +------+ +--- ---+-- (more content not included)... DIVISION OF RADIOLOGY Provider, [facility] - 10/08/2023 * * *Final Report* * * DATE OF EXAM: Oct 08 2023 11:58AM [facility] 0704 - MRI CARDIAC VELOCITY FLOW MAP / PROCEDURE REASON: VT (ventricular tachycardia) ([facility]) * * * * Physician Interpretation * * * * Cardiac MRI Report: [facility] Date of service: 10/08/2023 11:18:51 AM Linked orders:[id number] CARDIAC VELOCITY FLOW MAP;[id number] CARD MORPH FUNC WO/W IVCON. Ordering physician: LASHONDA WOLFF Technologist: KILO PATTEN Fellow: Gerry Mcfadden MD and Adri Silva Interpreting physician: Deena Hayden MD PATIENT: Name: MR. ALL GASTELUM Age: 43 years Gender: M MRI Scanner: Siemens Abril 1.5T 43 year old male with hx of MVP, and family hx of SCD who is being evaluated for palpitations. This study is performed to quantify left/right ventricular size and function, valvular function, and to perform tissue characterization for the assessment of myocardial fibrosis/edema. MRI Techniques: * Turbo spin echo and gradient echo imaging for anatomic definition. * Dynamic cine imaging (SSFP and GRE) for cardiac chamber and wall-motion analysis, and valvular analysis. * Flow quantification sequences for hemodynamics in 2 locations: aortic root and mid-ascending aorta. * Delayed gadolinium enhancement analysis after injection of gadolinium-chelate. * T2-STIR edema-weighted imaging. * T1 mapping. * T2 mapping. Gadolinium Agent: 15 cc of Gadavist was administered. Baseline vital signs: 51 bpm Height: 176.00 cm BSA: 2.11 m Weight: 91.00 kg BMI: 29.4 kg/m FINDINGS: Extracardiac findings: The chest wall appears normal. The mediastinum is normal. No significant adenopathy is identified. Limited imaging of the lungs reveals no gross abnormalities. Cardiac structures: The cardiac chambers demonstrate normal atrioventricular and normal ventriculoarterial concordance. Systemic and pulmonary venous return is normal. Aorta: Sinus: 3.2 cm Mid ascendin.9 cm Arch: Left Arch vessel branching pattern: normal Arch branch vessels: Widely patent Pulmonary Arteries: Pulmonary Arteries: Normal Measurements: - Main pulmonary artery diameter: 2.4 cm Left Atrium: The left atrium is normal in size. LA volume: 45 ml (normal range: 31-112 ml) LA volume index: 21 ml/m (normal range: 17-59 ml/m ) LA area (4ch): 18 cm LA area (2ch): 15 cm Right Atrium: The right atrium is normal in size. RA volume: 102 ml (normal range: 24-105 ml) RA volume index: 49 ml/m (normal range: 15-61 ml/m ) RA area (4ch): 25 cm Left Ventricle: The left ventricle is normal in size. Left ventricular systolic function is normal. value (normal range) indexed (normal range) EDV: 193 ml (83-207 ml) EDVi: 91 ml/m (47-107 ml/m ) ESV: 82 ml (19-88 ml) ESVi: 39 ml/m (11-47 ml/m ) SV: 110 ml (55-127 ml) SVi: 52 ml/m (30-66 ml/m ) EF: 57 % (51-76 %) CO: 5.7 l/min (3.9-8.3 l/min) CI: 2.7 l/min/m (2.1-4.3 ml/min/m ) mass: 115 g (57-152 g) LVMi: 54 g/m (36-75 g/m ) LV segment wall thickness: basal anteroseptum: 0.9 cm basal septum: 0.7 cm basal inferolateral: 0.6 cm Wall Motion: There are no wall motion abnormalities. Delayed Enhancement: There is no delayed enhancement. There is no ischemic myocardial damage. There is no interstitial fibrosis. Delayed gadolinium enhancement: imaging reveals uniformly nulled myocardium, signifying that there has been no prior ischemic myocardial damage. There is also no definite evidence of interstitial fibrosis on delayed enhancement imaging to suggest an infiltrative process. Constellation of findings could be suggestive of No significant myocardial disease. Right Ventricle: The right ventricle is normal in size. Right ventricular systolic function is normal. value (normal range) indexed (normal range) EDV: 204 ml (87-244 ml) EDVi: 97 ml/m (53-123 ml/m ) ESV: 100 ml (29-117 ml) ESVi: 47 ml/m (17-59 ml/m ) SV: 104 ml (43-146 ml) SVi: 49 ml/m (28-75 ml/m ) EF: 51 % (42-72 %) CO: 5.3 l/min (2.8-8.3 l/min) CI: 2.5 l/min/m (1.5-4.5 l/min/m ) T1 / T2 / ECV T2 * : +------+ +--- ---+ +-----+ -------+----+ T1 pre (ms) +/- T1 post (ms) +/- ECV (%) +/- +------+ +--- ---+ +-----+ -------+----+ Base 1012.19 86.23 382.03 38.05 25.05 7.82 +------+ +--- ---+ +-----+ -------+----+ Mid 992.60 92.09 368.98 47.06 24.34 5.71 +------+ +--- ---+ +-----+ -------+----+ [place] 972.27 108.89 359.44 51.53 28.26 6.84 +------+ +--- ---+ +-----+ -------+----+ Global 996.92 94.89 372.52 45.38 25.54 7.13 +------+ +--- ---+ +-----+ -------+----+ Normal values based on healthy individuals: T1: 950 +/ (more content not included)... [facility] Radiology Study observation (narrative) [facility] MR Heart cine for blood flow velocity mappingOrdered By: [facility] Provider on 10-08-2023 [facility] MRI CARD MORPH FUNC WO/W IVC ONon 10-08-2023 MRI CARD MORPH FUNC WO/W IVCON * * *Final Report* * * DATE OF EXAM: Oct 08 2023 11:58AM J 0703 - MRI CARD MORPH FUNC WO/W IVCON / PROCEDURE REASON: VT (ventricular tachycardia) ([facility]) * * * * Physician Interpretation * * * * Cardiac MRI Report: [facility] Date of service: 10/08/2023 11:18:51 AM Linked orders:[id number] CARDIAC VELOCITY FLOW MAP;[id number] CARD MORPH FUN WO/W IVCON. Ordering physician: LASHONDA WOLFF Technologist: KILO PATTEN Fellow: Gerry Mcfadden MD and Adri Silva Interpreting physician: Deena Hayden MD PATIENT: Name: MR. ALL GASTELUM Age: 43 years Gender: M MRI Scanner: Siemens Abril 1.5T 43 year old male with hx of MVP, and family hx of SCD who is being evaluated for palpitations. This study is performed to quantify left/right ventricular size and function, valvular function, and to perform tissue characterization for the assessment of myocardial fibrosis/edema. MRI Techniques: * Turbo spin echo and gradient echo imaging for anatomic definition. * Dynamic cine imaging (SSFP and GRE) for cardiac chamber and wall-motion analysis, and valvular analysis. * Flow quantification sequences for hemodynamics in 2 locations: aortic root and mid-ascending aorta. * Delayed gadolinium enhancement analysis after injection of gadolinium-chelate. * T2-STIR edema-weighted imaging. * T1 mapping. * T2 mapping. Gadolinium Agent: 15 cc of Gadavist was administered. Baseline vital signs: 51 bpm Height: 176.00 cm BSA: 2.11 m? Weight: 91.00 kg BMI: 29.4 kg/m? FINDINGS: Extracardiac findings: The chest wall appears normal. The mediastinum is normal. No significant adenopathy is identified. Limited imaging of the lungs reveals no gross abnormalities. Cardiac structures: The cardiac chambers demonstrate normal atrioventricular and normal ventriculoarterial concordance. Systemic and pulmonary venous return is normal. Aorta: Sinus: 3.2 cm Mid ascendin.9 cm Arch: Left Arch vessel branching pattern: normal Arch branch vessels: Widely patent Pulmonary Arteries: Pulmonary Arteries: Normal Measurements: - Main pulmonary artery diameter: 2.4 cm Left Atrium: The left atrium is normal in size. LA volume: 45 ml (normal range: 31-112 ml) LA volume index: 21 ml/m? (normal range: 17-59 ml/m?) LA area (4ch): 18 cm? LA area (2ch): 15 cm? Right Atrium: The right atrium is normal in size. RA volume: 102 ml (normal range: 24-105 ml) RA volume index: 49 ml/m? (normal range: 15-61 ml/m?) RA area (4ch): 25 cm? Left Ventricle: The left ventricle is normal in size. Left ventricular systolic function is normal. value (normal range) indexed (normal range) EDV: 193 ml (83-207 ml) EDVi: 91 ml/m? (47-107 ml/m?) ESV: 82 ml (19-88 ml) ESVi: 39 ml/m? (11-47 ml/m?) SV: 110 ml (55-127 ml) SVi: 52 ml/m? (30-66 ml/m?) EF: 57 % (51-76 %) CO: 5.7 l/min (3.9-8.3 l/min) CI: 2.7 l/min/m? (2.1-4.3 ml/min/m?) mass: 115 g (57-152 g) LVMi: 54 g/m? (36-75 g/m?) LV segment wall thickness: basal anteroseptum: 0.9 cm basal septum: 0.7 cm basal inferolateral: 0.6 cm Wall Motion: There are no wall motion abnormalities. Delayed Enhancement: There is no delayed enhancement. There is no ischemic myocardial damage. There is no interstitial fibrosis. Delayed gadolinium enhancement: imaging reveals uniformly nulled myocardium, signifying that there has been no prior ischemic myocardial damage. There is also no definite evidence of interstitial fibrosis on delayed enhancement imaging to suggest an infiltrative process. Constellation of findings could be suggestive of No significant myocardial disease. Right Ventricle: The right ventricle is normal in size. Right ventricular systolic function is normal. value (normal range) indexed (normal range) EDV: 204 ml (87-244 ml) EDVi: 97 ml/m? (53-123 ml/m?) ESV: 100 ml (29-117 ml) ESVi: 47 ml/m? (17-59 ml/m?) SV: 104 ml (43-146 ml) SVi: 49 ml/m? (28-75 ml/m?) EF: 51 % (42-72 %) CO: 5.3 l/min (2.8-8.3 l/min) CI: 2.5 l/min/m? (1.5-4.5 l/min/m?) T1 / T2 / ECV T2 * : +------+ +--- ---+ +-----+ -------+----+ T1 pre (ms) +/- T1 post (ms) +/- ECV (%) +/- +------+ +--- ---+ +-----+ -------+----+ Base 1012.19 86.23 382.03 38.05 25.05 7.82 +------+ +--- ---+ +-----+ -------+----+ Mid 992.60 92.09 368.98 47.06 24.34 5.71 +------+ +--- ---+ +-----+ -------+----+ [place] 972.27 108.89 359.44 51.53 28.26 6.84 +------+ +--- ---+ +-----+ -------+----+ Global 996.92 94.89 372.52 45.38 25.54 7.13 +------+ +--- ---+ +-----+ -------+----+ Normal values based on healthy individuals: T1: 950 +/- 21 ms; ECV: 26 +/- 4% T2 mapping: Global: 48.76 +/- 7.34 ms Aortic Valve: There is trace aortic regurgitation. AV Flow (more content not included)... Normal [facility] MRI CARDIAC VELOCITY FLOW [facility] 10-08-2023 MRI CARDIAC VELOCITY FLOW MAP * * *Final Report* * * DATE OF EXAM: Oct 08 2023 11:58AM [facility] 0704 - MRI CARDIAC VELOCITY FLOW MAP / PROCEDURE REASON: VT (ventricular tachycardia) ([facility]) * * * * Physician Interpretation * * * * Cardiac MRI Report: [facility] Date of service: 10/08/2023 11:18:51 AM Linked orders:[id number] CARDIAC VELOCITY FLOW MAP;[id number] CARD MORPH FUNC WO/W IVCON. Ordering physician: LASHONDA WOLFF Technologist: KILO PATTEN Fellow: Gerry Mcfadden MD and Adri Silva Interpreting physician: Deena Hayden MD PATIENT: Name: MR. ALL GASTELUM Age: 43 years Gender: M MRI Scanner: Siemens Abril 1.5T 43 year old male with hx of MVP, and family hx of SCD who is being evaluated for palpitations. This study is performed to quantify left/right ventricular size and function, valvular function, and to perform tissue characterization for the assessment of myocardial fibrosis/edema. MRI Techniques: * Turbo spin echo and gradient echo imaging for anatomic definition. * Dynamic cine imaging (SSFP and GRE) for cardiac chamber and wall-motion analysis, and valvular analysis. * Flow quantification sequences for hemodynamics in 2 locations: aortic root and mid-ascending aorta. * Delayed gadolinium enhancement analysis after injection of gadolinium-chelate. * T2-STIR edema-weighted imaging. * T1 mapping. * T2 mapping. Gadolinium Agent: 15 cc of Gadavist was administered. Baseline vital signs: 51 bpm Height: 176.00 cm BSA: 2.11 m? Weight: 91.00 kg BMI: 29.4 kg/m? FINDINGS: Extracardiac findings: The chest wall appears normal. The mediastinum is normal. No significant adenopathy is identified. Limited imaging of the lungs reveals no gross abnormalities. Cardiac structures: The cardiac chambers demonstrate normal atrioventricular and normal ventriculoarterial concordance. Systemic and pulmonary venous return is normal. Aorta: Sinus: 3.2 cm Mid ascendin.9 cm Arch: Left Arch vessel branching pattern: normal Arch branch vessels: Widely patent Pulmonary Arteries: Pulmonary Arteries: Normal Measurements: - Main pulmonary artery diameter: 2.4 cm Left Atrium: The left atrium is normal in size. LA volume: 45 ml (normal range: 31-112 ml) LA volume index: 21 ml/m? (normal range: 17-59 ml/m?) LA area (4ch): 18 cm? LA area (2ch): 15 cm? Right Atrium: The right atrium is normal in size. RA volume: 102 ml (normal range: 24-105 ml) RA volume index: 49 ml/m? (normal range: 15-61 ml/m?) RA area (4ch): 25 cm? Left Ventricle: The left ventricle is normal in size. Left ventricular systolic function is normal. value (normal range) indexed (normal range) EDV: 193 ml (83-207 ml) EDVi: 91 ml/m? (47-107 ml/m?) ESV: 82 ml (19-88 ml) ESVi: 39 ml/m? (11-47 ml/m?) SV: 110 ml (55-127 ml) SVi: 52 ml/m? (30-66 ml/m?) EF: 57 % (51-76 %) CO: 5.7 l/min (3.9-8.3 l/min) CI: 2.7 l/min/m? (2.1-4.3 ml/min/m?) mass: 115 g (57-152 g) LVMi: 54 g/m? (36-75 g/m?) LV segment wall thickness: basal anteroseptum: 0.9 cm basal septum: 0.7 cm basal inferolateral: 0.6 cm Wall Motion: There are no wall motion abnormalities. Delayed Enhancement: There is no delayed enhancement. There is no ischemic myocardial damage. There is no interstitial fibrosis. Delayed gadolinium enhancement: imaging reveals uniformly nulled myocardium, signifying that there has been no prior ischemic myocardial damage. There is also no definite evidence of interstitial fibrosis on delayed enhancement imaging to suggest an infiltrative process. Constellation of findings could be suggestive of No significant myocardial disease. Right Ventricle: The right ventricle is normal in size. Right ventricular systolic function is normal. value (normal range) indexed (normal range) EDV: 204 ml (87-244 ml) EDVi: 97 ml/m? (53-123 ml/m?) ESV: 100 ml (29-117 ml) ESVi: 47 ml/m? (17-59 ml/m?) SV: 104 ml (43-146 ml) SVi: 49 ml/m? (28-75 ml/m?) EF: 51 % (42-72 %) CO: 5.3 l/min (2.8-8.3 l/min) CI: 2.5 l/min/m? (1.5-4.5 l/min/m?) T1 / T2 / ECV T2 * : +------+ +--- ---+ +-----+ -------+----+ T1 pre (ms) +/- T1 post (ms) +/- ECV (%) +/- +------+ +--- ---+ +-----+ -------+----+ Base 1012.19 86.23 382.03 38.05 25.05 7.82 +------+ +--- ---+ +-----+ -------+----+ Mid 992.60 92.09 368.98 47.06 24.34 5.71 +------+ +--- ---+ +-----+ -------+----+ [place] 972.27 108.89 359.44 51.53 28.26 6.84 +------+ +--- ---+ +-----+ -------+----+ Global 996.92 94.89 372.52 45.38 25.54 7.13 +------+ +--- ---+ +-----+ -------+----+ Normal values based on healthy individuals: T1: 950 +/- 21 ms; ECV: 26 +/- 4% T2 mapping: Global: 48.76 +/- 7.34 ms Aortic Valve: There is trace aortic regurgitation. AV Flow (more content not included)... [facility]DORIS) ALL GASTELUM ([id number]) 1980 M Date Time Provider Department 07/28/23 LASHONDA WOLFF During your visit today, we recorded the following information about you: Lashonda Wolff MD 07/28/2023 2:24 PM Signed I spoke to All states that he is down from 25 mg metoprolol succinate to 12.5 mg once a day. He is unsure whether headaches are related to beta-ramon or if he were dehydrated that day. He will try to uptitrate to 25 mg dosing on a day when he is not working. He was counseled on proper hydration. He is also trying to cut back on caffeine intake. He will keep us updated on any symptoms. Allergies As of Date: 07/28/2023 (No Known Allergies) Date Reviewed: 05/07/2023 Reviewed by: Heidi Sheppard LPN - Fully Assessed Prescriptions as of 07/28/2023 - metoprolol succinate ER (TOPROL XL) 25 mg 24 hr tablet Take 1 tablet by mouth once daily. - iv contrast (will be provided with radiology test) MRI Cardiac w/Qflow Inject, intravenously, once for 1 dose. No IV access, insert saline lock prior to the beginning of sedation, infusion, injection of imaging exam. Discontinue saline lock post exam. If Pt has a central line or IVAD, may access for administration according to line specific nursing protocol. Once exam is complete flush line and de-access according to line specific nursing protocol in the MR contrast administration guidelines link - sulfamethoxazole-trimet hoprim 800-160 mg ORAL per tablet Take 1 tablet by mouth twice daily. - docusate sodium (COLACE) 100 mg ORAL capsule Take 1 capsule by mouth twice daily. - DAILY MULTI-VITAMIN ORAL Take by mouth once daily. Problem List As Of Date 07/28/2023 Noted Resolved Fracture of right patella [S82.001A] 04/04/2011 Wound drainage [T14.8XXA] 08/20/2011 08/27/2011 Atypical nevus of abdominal wall [D22.5] 02/19/2023 Intra-abdominal and pelvic swelling, mass and l*02/19/2023 Chronic cough [R05.3] 02/19/2023 Well adult exam [Z00.00] 02/19/2023 Palpitations [R00.2] 02/19/2023 Other chest pain [R07.89] 02/19/2023 MVP (mitral valve prolapse) [I34.1] 02/19/2023 Family history of sudden cardiac in fathe*02/19/2023 Family history of premature coronary artery dis*02/19/2023 Trace mitral regurgitation by prior echocardiog*05/07/2023 Umbilical hernia without obstruction or gangren*05/07/2023 Hyperlipidemia, mixed [E78.2] 05/07/2023 Fatigue [R53.83] 05/07/2023 Encounter Status:Closed by LASHONDA WOLFF on 07/28/23 Normal [facility] 07-12-2023 [facility] Telephone (CARDMM) NIRAVALL EDGAR ([id number]) 1980 M Date Time Provider Department 07/12/23 LASHONDA WOLFF [facility] During your visit today, we recorded the following information about you: Lashonda Wolff MD 07/12/2023 12:34 PM Addendum I spoke to All and reviewed his vehicle monitor technician with him showed 6 beat run of nonsustained VT (218 bpm), <1% VE, <1% SVE. -Arrange for cardiac MRI to assess for LGE. He would like to start taking his exercise more seriously. -He will attempt to cut back on stimulants including caffeine. -Metoprolol succinate 25 mg p.o. daily. He will start out by taking half a tablet a day for 3 to 5 days and once tolerating well, increase his metoprolol dose to 25 mg po daily. -ASCVD 6.9%. He is declining statin at this time (has family history of premature CAD) will work on incorporating low-cholesterol diet. Recommend repeating lipid panel in 3-6 months. Allergies As of Date: 07/12/2023 (No Known Allergies) Date Reviewed: 05/07/2023 Reviewed by: Heidi Sheppard LPN - Fully Assessed Order(s):metoprolol succinate ER (TOPROL XL) 25 mg 24 hr tabletTake 1 tablet by mouth once daily.Disp: 30 tabletRfl: 11 Prescriptions as of 07/12/2023 - metoprolol succinate ER (TOPROL XL) 25 mg 24 hr tablet Take 1 tablet by mouth once daily. - iv contrast (will be provided with radiology test) MRI Cardiac w/Qflow Inject, intravenously, once for 1 dose. No IV access, insert saline lock prior to the beginning of sedation, infusion, injection of imaging exam. Discontinue saline lock post exam. If Pt has a central line or IVAD, may access for administration according to line specific nursing protocol. Once exam is complete flush line and de-access according to line specific nursing protocol in the MR contrast administration guidelines link - sulfamethoxazole-trimet hoprim 800-160 mg ORAL per tablet Take 1 tablet by mouth twice daily. - docusate sodium (COLACE) 100 mg ORAL capsule Take 1 capsule by mouth twice daily. - DAILY MULTI-VITAMIN ORAL Take by mouth once daily. Problem List As Of Date 07/12/2023 Noted Resolved Fracture of right patella [S82.001A] 04/04/2011 Wound drainage [T14.8XXA] 08/20/2011 08/27/2011 Atypical nevus of abdominal wall [D22.5] 02/19/2023 Intra-abdominal and pelvic swelling, mass and l*02/19/2023 Chronic cough [R05.3] 02/19/2023 Well adult exam [Z00.00] 02/19/2023 Palpitations [R00.2] 02/19/2023 Other chest pain [R07.89] 02/19/2023 MVP (mitral valve prolapse) [I34.1] 02/19/2023 Family history of sudden cardiac in fathe*02/19/2023 Family history of premature coronary artery dis*02/19/2023 Trace mitral regurgitation by prior echocardiog*05/07/2023 Umbilical hernia without obstruction or gangren*05/07/2023 Hyperlipidemia, mixed [E78.2] 05/07/2023 Fatigue [R53.83] 05/07/2023 Prescriptions ordered this encounter Disp Refills Start End METOPROLOL SUCCINATE ER 25 MG TABLET* 30 t* 11 07/12/2023 07/11/2024 Route: ORAL Sig: Take 1 tablet by mouth once daily. Encounter Status:Closed by LASHONDA WOLFF on 07/12/[address] [facility] ALL GASTELUM ([id number]) 1980 M Date Time Provider Department 07/12/23 LASHONDA WOLFF During your visit today, we recorded the following information about you: Sincere Thurston 07/18/2023 2:18 PM Signed Patient is scheduled Allergies As of Date: 07/12/2023 (No Known Allergies) Date Reviewed: 05/07/2023 Reviewed by: Heidi Sheppard LPN - Fully Assessed Primary Visit Diagnosis:VT (ventricular tachycardia) ([facility]) [I47.20] Order(s):MRI CARDIAC MORPH FUNC WO/W IVCON [[id number]] Order #: [id number] FUTURE MRI CARDIAC VELOCITY FLOW MAP [0000045] Order #: [id number] FUTURE iv contrast (will be provided with radiology test)MRI Cardiac w/Qflow Inject, intravenously, once for 1 dose. No IV access, insert saline lock prior to the beginning of sedation, infusion, injection of imaging exam. Discontinue saline lock post exam. If Pt has a central line or IVAD, may access for administration according to line specific nursing protocol. Once exam is complete flush line and de-access according to line specific nursing protocol in the MR contrast administration guidelines linkDisp: 1 EachRfl: 0 Prescriptions as of 07/18/2023 - metoprolol succinate ER (TOPROL XL) 25 mg 24 hr tablet Take 1 tablet by mouth once daily. - iv contrast (will be provided with radiology test) MRI Cardiac w/Qflow Inject, intravenously, once for 1 dose. No IV access, insert saline lock prior to the beginning of sedation, infusion, injection of imaging exam. Discontinue saline lock post exam. If Pt has a central line or IVAD, may access for administration according to line specific nursing protocol. Once exam is complete flush line and de-access according to line specific nursing protocol in the MR contrast administration guidelines link - sulfamethoxazole-trimet hoprim 800-160 mg ORAL per tablet Take 1 tablet by mouth twice daily. - docusate sodium (COLACE) 100 mg ORAL capsule Take 1 capsule by mouth twice daily. - DAILY MULTI-VITAMIN ORAL Take by mouth once daily. Problem List As Of Date 07/12/2023 Noted Resolved Fracture of right patella [S82.001A] 04/04/2011 Wound drainage [T14.8XXA] 08/20/2011 08/27/2011 Atypical nevus of abdominal wall [D22.5] 02/19/2023 Intra-abdominal and pelvic swelling, mass and l*02/19/2023 Chronic cough [R05.3] 02/19/2023 Well adult exam [Z00.00] 02/19/2023 Palpitations [R00.2] 02/19/2023 Other chest pain [R07.89] 02/19/2023 MVP (mitral valve prolapse) [I34.1] 02/19/2023 Family history of sudden cardiac in fathe*02/19/2023 Family history of premature coronary artery dis*02/19/2023 Trace mitral regurgitation by prior echocardiog*05/07/2023 Umbilical hernia without obstruction or gangren*05/07/2023 Hyperlipidemia, mixed [E78.2] 05/07/2023 Fatigue [R53.83] 05/07/2023 Prescriptions ordered this encounter Disp Refills Start End IV CONTRAST (RADIOLOGY PROCEDURE) 1 Ea* 0 07/12/2023 Class: In Office Sig: MRI Cardiac w/Qflow Inject, intravenously, once for 1 dose. No IV access, insert saline lock prior to the beginning of sedation, infusion, injection of imaging exam. Discontinue saline lock post exam. If Pt has a central line or IVAD, may access for administration according to line specific nursing protocol. Once exam is complete flush line and de-access according to line specific nursing protocol in the MR contrast administration guidelines link Encounter Status:Closed by SINCERE THURSTON on 07/18/23 [facility] CNOVon 05-07-2023 CNOV Office Visit (FAMPWS ) ALL GASTELUM ([id number]) 1980 M Date Time Provider Department 05/07/23 9:20 AM CHRIS FORRESTERPWS During your visit today, we recorded the following information about you: Temperature Pulse Respiration Blood pressure 97.1 degrees 64/minute 16/minute 116/80 Weight Height 90.7 kg 1.76 m Chris Forrester, 05/07/2023 12:14 PM Signed CC: All Gastelum is a 43 year old male who presents to the office to establish care. HPI: Seen in office Jan 2023, at that time Hx of MVP, diagnosed in his 20s he thinks, hasn't had recent cardiac testing. Has a very significant fmhx of cardiac disease. Father suddenly at age 46 from an acute heart attack. Last cardiac testing for All was in his 20s. Does have palpitations and occasional shortness of breath feeling. Did also have covid 19 infection Mar 2020 and felt that this likely also contributing to an intermittent dry cough and dyspnea that he has. Doesn't usually get chest pain but has in the past. 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 Has a sore bulge in upper mid abdomen. Hx of heavy lifting. No known hernia in the past. No bowel changes or blood in stool. No vomiting or nausea Hasn't had recent blood work Currently HPL, he is working on diet and exercise in a regular way. He is cutting back on tobacco use with dipping, he doesn't smoke He had ECHO and ECG and exercise stress testing and overall this was normal/stable. Trace mitral valve regurgitation was seen only. He has been evaluated further by Mica Splitter and will be wearing 2 week vehicle monitor technician due to minimal ventricular trigeminy seen on his stress testing. Umbilical hernia. He was evaluated by Dr Klein general surgeon. Likely able to have repair done without mesh. He is interested in pursuing this upcoming. No chest pressure or pain or dyspnea or dizziness/Lh. Only fatigue symptoms that are chronic. PAST MEDICAL HISTORY Diagnosis Date Chronic cough Family history of premature coronary artery disease Family history of sudden cardiac in father Fractured patella Mitral valve disorder takes antibiotic before dental and surgeries Palpitations PAST SURGICAL HISTORY Procedure Laterality Date PAST SURGICAL HISTORY OF dislocated hand and injured wrist PAST SURGICAL HISTORY OF right patella fracture Social History: Social History Tobacco Use Smoking status: Former Types: Cigars Smokeless tobacco: Current Types: Chew Vaping Use Vaping Use: Never used Substance Use Topics Alcohol use: Yes Comment: social, 1-2 a month Drug use: No FAMILY HISTORY Problem Relation Age of Onset other (Other [Other]) Mother MVP Heart Father Hypertension Father age 46 massive NM Current Outpatient prescriptions: sulfamethoxazole-trimet hoprim 800-160 mg ORAL per tablet Take 1 tablet by mouth twice daily. (Patient not taking: Reported on 04/15/2023) docusate sodium (COLACE) 100 mg ORAL capsule Take 1 capsule by mouth twice daily. (Patient not taking: Reported on 04/15/2023) DAILY MULTI-VITAMIN ORAL Take by mouth once daily. (Patient not taking: Reported on 04/15/2023) Allergies: ALLERGIES No Known Allergies ROS: See HPI PE: 05/07/23 0921 BP: 116/80 Pulse: 64 Resp: 16 Temp: 36.2 ?C (97.1 ?F) TempSrc: Left Tympanic Weight: 90.7 kg (200 lb) Height: 176 cm (5' 9.29) Gen: AANDO, NAD, non-toxic appearing, Pleasant, cooperative HEENT: NT/AC, PERRLA, EOMs intact b/l, nares clear and patent b/l, pharynx without erythema, exudate or lesions. Uvula midline. EACs without erythema or debris. TMs pearly herrera with intact landmarks b/l. Neck: supple, No cervical LAD, no thyromegaly, no carotid bruits CV: RRR, normal S1 and S2, no murmurs, no gallops, no rubs, Pulses 2+ and symmetric in UE and LE b/l Lungs: normal respiratory effort, CTA b/l, no wheezing or rhonchi or rales Abd: soft, NT, + umbilical hernia reducible small MS: FROM all 4 extremities Neuro: CN II-XII intact b/l, strength 5/5 b/l UE and LE, DTRs 2/4 UE and LE, sensation intact. Skin: warm, dry, intact, No rashes or lesions on exposed skin. ASSESSMENT/PLAN: 1. Umbilical hernia without obstruction or gangrene - ICD9: 553.1, ICD10: K42.9 (primary diagnosis) He is going to follow up with Dr. Klein for repair surgery, he is now cleared for procedure in primary care office as well as by Mica Splitter 2. Trace mitral regurgitation by prior echocardiogram - ICD9: 424.0, ICD10: I34.0 See above, minimal, will repeat echo in 2-3 years as d/w him and today 3. Hyperlipidemia, mixed - ICD9: 272.2, ICD10: E78.2 - Uncontrolled - Counseled on healthy diet and regular exercise - Discussed need for and benefit of weight loss. BMI 29.29 kg/(m2) 4. Fatigue, unspecified type - ICD9: 780.79, ICD10: R53.83 Chronic, stable, he (more content not included)... [facility] ALL GAST[facility] ([id number]) 1980 M Date Time Provider Department 05/07/23 CHRIS FORRESTER [facility] During your visit today, we recorded the following information about you: Chris Forrester DO 05/07/2023 12:15 PM Signed Patient is ready to schedule umbilical hernia repair with Dr. Klein, has already been seen by the surgeon and he is cleared by Mica Splitter and PCP for this procedure. DO Ervin Kaminski Mary, LPN 05/08/2023 8:[address] Klein: He was chewing tobacco which he would need to stop prior to surgery. I also recall he had 2 hernias. I would like to see I'm again in the office Sent update to patients mychart, to schedule appointment with Dr Klein and have to quite chewing tobacco. Erin Mueller LPN May 08, 2023 8:17 AM Sheila Estes 05/08/2023 12:04 PM Signed Contacted patient in regards to scheduling office visit with Dr. Klein as requested. Per patient will talk with his spouse and call our office back to schedule an in office visit with surgeon [facility] Assistant Allergies As of Date: 05/07/2023 (No Known Allergies) Date Reviewed: 05/07/2023 Reviewed by: Heidi Sheppard LPN - Fully Assessed Prescriptions as of 05/08/2023 - sulfamethoxazole-trimet hoprim 800-160 mg ORAL per tablet Take 1 tablet by mouth twice daily. - docusate sodium (COLACE) 100 mg ORAL capsule Take 1 capsule by mouth twice daily. - DAILY MULTI-VITAMIN ORAL Take by mouth once daily. Problem List As Of Date 05/07/2023 Noted Resolved Fracture of right patella [S82.001A] 04/04/2011 Wound drainage [T14.8XXA] 08/20/2011 08/27/2011 Atypical nevus of abdominal wall [D22.5] 02/19/2023 Intra-abdominal and pelvic swelling, mass and l*02/19/2023 Chronic cough [R05.3] 02/19/2023 Well adult exam [Z00.00] 02/19/2023 Palpitations [R00.2] 02/19/2023 Other chest pain [R07.89] 02/19/2023 MVP (mitral valve prolapse) [I34.1] 02/19/2023 Family history of sudden cardiac in fathe*02/19/2023 Family history of premature coronary artery dis*02/19/2023 Trace mitral regurgitation by prior echocardiog*05/07/2023 Umbilical hernia without obstruction or gangren*05/07/2023 Hyperlipidemia, mixed [E78.2] 05/07/2023 Fatigue [R53.83] 05/07/2023 Encounter Status:Closed by CHRIS FORRESTER on 05/07/23 Normal [facility] CNOVon 05-01-2023 CNOV Office Visit ([facility] ) ALL GASTELUM ([id number]) 1980 M Date Time Provider Department 05/01/23 10:20 AM LASHONDA WOLFF During your visit today, we recorded the following information about you: Pulse Blood pressure Weight Height 58/minute 130/84 90.9 kg 1.778 m Lashonda Wolff MD 05/01/2023 11:09 AM Signed [facility] SECTION OF REGIONAL CARDIOLOGY OUTPATIENT VISIT DATE 03/26/2023 OUTPATIENT VISIT TYPE Established PRIMARY CARE PHYSICIAN: Chris Forrester [address] [place] [address] Patient is being seen for follow up visit. HISTORY OF PRESENT ILLNESS: Mr. Gastelum is a 43 year old male, hx of MVP, COVID in 2019, family hx of SCD in his father, chews tobacco, presents for follow up visit. He was initially referred for evaluation of SOB and palpitations. He is accompanied by his . He denies angina, shortness of breath, palpitations, orthopnea, PND, lightheadedness, syncope. EKG reviewed: NSR HR 69. Thyroid function testing was done on 03/10/2023: TSH 1.84, free T4 1.4, free T3 3.4. Lipid panel reviewed 03/10/2023: Total cholesterol 208, LDL 146, HDL 33, triglycerides 143. Exercise stress testing 03/26/23 showed HR 54- 173. Exercise time 11:30 mins. 10.2 METS. 97% MPHR. Peak BP 180/[address] changes. Noted to have ventricular couplets and triplets ECHO showed EF 55+/-5%, mild MR PAST MEDICAL HISTORY Diagnosis Date Chronic cough Family history of premature coronary artery disease Family history of sudden cardiac in father Fractured patella Mitral valve disorder takes antibiotic before dental and surgeries Palpitations PAST SURGICAL HISTORY Procedure Laterality Date PAST SURGICAL HISTORY OF dislocated hand and injured wrist PAST SURGICAL HISTORY OF right patella fracture Social History Tobacco Use Smoking status: Some Days Types: Cigars Smokeless tobacco: Former Types: Chew Vaping Use Vaping Use: Never used Substance Use Topics Alcohol use: Yes Comment: social, 1-2 a month Drug use: No FAMILY HISTORY Problem Relation Age of Onset other (Other [Other]) Mother MVP Heart Father Hypertension Father age 46 massive NM ALLERGIES No Known Allergies CURRENT MEDICATIONS: sulfamethoxazole-trimet hoprim 800-160 mg ORAL per tablet Take 1 tablet by mouth twice daily. (Patient not taking: Reported on 04/15/2023) docusate sodium (COLACE) 100 mg ORAL capsule Take 1 capsule by mouth twice daily. (Patient not taking: Reported on 04/15/2023) DAILY MULTI-VITAMIN ORAL Take by mouth once daily. (Patient not taking: Reported on 04/15/2023) PHYSICAL EXAMINATION: BP 130/84 Pulse (!) 58 Ht 177.8 cm (5' 10) Wt 90.9 kg (200 lb 6.4 oz) SpO2 100% BMI 28.75 kg/m? General: Appears comfortable in no apparent cardiopulmonary distress Neck: No JVD, no bruits CVS: S1, S2, No m/r/g Chest: CTAB Abd: Soft, nontender, no masses, BS present Ext: No pedal edema, pedal pulses 2+ bilaterally Neuro: No focal neurological deficits CARDIOVASCULAR MEDICINE TESTING: I have personally reviewed ECG. IMPRESSION/ PLAN: Mitral regurgitation Mild MR per TTE. - Continue to monitor with TTE in 3 years Ventricular ectopy Noted to have ventricular couplets and triplets during the stress test. -Arrange for a 14-day Zio patch. He states that he will place the monitor on after he cuts back on caffeine intake. Monitor was provided to him in hand at today's visit. -He will make a follow-up appointment after he completes wearing his Zio patch for 2 weeks. Allergies As of Date: 05/01/2023 (No Known Allergies) Date Reviewed: 05/01/2023 Reviewed by: Andrea Landrum LPN - Fully Assessed Reason for Visit: Follow Up [171] Cmt: ECHO f/u I feel my heart. Family history Father of NM Primary Visit Diagnosis:Palpitations [R00.2] Order(s):OUTSIDE VENDOR CARDIAC OUTPATIENT EXTENDED RHYTHM RECORDING (WITHOUT TELEMETRY) [[id number]] Order #: [id number]: 1 Prescriptions as of 05/01/2023 - sulfamethoxazole-trimet hoprim 800-160 mg ORAL per tablet Take 1 tablet by mouth twice daily. - docusate sodium (COLACE) 100 mg ORAL capsule Take 1 capsule by mouth twice daily. - DAILY MULTI-VITAMIN ORAL Take by mouth once daily. Problem List As Of Date 05/01/2023 Noted Resolved Fracture of right patella [S82.001A] 04/04/2011 Wound drainage [T14.8XXA] 08/20/2011 08/27/2011 Atypical nevus of abdominal wall [D22.5] 02/19/2023 Intra-abdominal and pelvic swelling, mass and l*02/19/2023 Chronic cough [R05.3] 02/19/2023 Well adult exam [Z00.00] 02/19/2023 Palpitations [R00.2] 02/19/2023 Other chest pain [R07.89] 02/19/2023 MVP (mitral valve prolapse) [I34.1] 02/19/2023 Family history of sudden cardiac in fathe*02/19/2023 Family history of premature uzma (more content not included)... [facility] XR CHEST 2V FRONTAL/LATon XR CHEST 2V FRONTAL/LAT * * *Final Report* * * DATE OF EXAM: May 01 2023 2:28PM [id number] [id number] - XR CHEST 2V FRONTAL/LAT / PROCEDURE REASON: Chronic cough * * * * Physician Interpretation * * * * EXAMINATION: CHEST RADIOGRAPH (2 VIEW FRONTAL and LATERAL) CLINICAL HISTORY: Chronic cough MQ: [id number] EXAM DATE/TIME: 05/01/2023 2:28 PM COMPARISON: No relevant prior studies available. RESULT: Lines, tubes, and devices: None. Lungs and pleura: No consolidation. No lung mass. No pleural effusion. No pneumothorax. Cardiomediastinal silhouette: Normal cardiomediastinal silhouette. Bones and soft tissues: Unremarkable. IMPRESSION: No acute radiographic abnormality. 911 Operator: PSCB Transcribe Date/Time: May 02 2023 4:16P Dictated by : NARESH CALVO MD This examination was interpreted and the report reviewed and electronically signed by: NARESH CALVO MD on May 02 2023 4:16PM EST [id number] [facility] ECHOon 04-29-2023 Echocardiography Echocardiography Report: Transthoracic Echo [facility] Office Date of service: 04/29/2023 1:27:39 PM CARD MAKER Ordering physician: CHRIS FORRESTER Indication: Family History of Heart Disease Technologist: Dion Daniel Interpreting physician: Mumtaz Eller DO PATIENT: Name: MR. ALL GASTELUM : 1980 Age: 43 years Gender: M Primary rhythm: sinus. Height: 177.80 cm BSA: 2.09 m Weight: 88.81 kg BMI: 28.1 kg/m Heart rate 60 bpm Color Doppler was utilized to interrogate the cardiac valves assessed and spectral Doppler was utilized to determine the flow velocities and pressure gradients reported in this exam. Myocardial strain analysis was performed in this exam to aid in the assessment of cardiac function. MEASUREMENTS: Value Indexed Normal Max aortic dimension 3.3 cm Ao < 3.8 Left atrial volume 57 ml (biplane A-L) 27 ml/m Laura <= 34 LV ID (diastole) 4.9 cm (2D) 2.35 cm/m LV ID (systole) 3.3 cm (2D) 1.58 cm/m IVS, leaflet tips 0.8 cm (2D) Posterior wall thickness 1.0 cm (2D) Left ventricular mass 154 g (2D) 73 g/m Global peak long strain -19.5 % LV stroke volume 55 ml (2D biplane) LV end diastolic volume 99 ml (2D biplane) 47.4 ml/m 34<=EDVi<75 LV end systolic volume 44 ml (2D biplane) 21.2 ml/m Ejection Fraction 55 % (2D biplane) EF > 52 FINDINGS: LEFT VENTRICLE The left ventricle is normal in size. Left ventricular systolic function is normal globally. Global LV myocardial strain is normal. Normal left ventricular diastolic function. Mitral annular lateral E/e': 4.2. Mitral annular septal E/e': 5.5. Wall Motion: All scored segments are normal. RIGHT VENTRICLE The right ventricle is normal in size. Right ventricular systolic function is normal. Estimated right atrial pressure is 3 mmHg based on IVC assessment. LEFT ATRIUM The left atrial cavity is normal in size. Pulmonary Veins: The pulmonary venous pattern showed normal systolic flow. RIGHT ATRIUM The right atrial cavity is normal in size. Inferior Vena Cava: The inferior vena cava appears normal measuring 1.8 cm. The vessel decreases greater than 50 percent with inspiration. MITRAL VALVE The mitral valve leaflets are structurally normal. There is trace (trace - 1+) mitral valve regurgitation. The pressure half time is 62 msec. The peak mitral E/A ratio is 1.49. The average mitral E/e' ratio is 4.8. The mitral flow deceleration time is 214 msec. TRICUSPID VALVE The tricuspid valve leaflets are structurally normal. There is no tricuspid valve regurgitation. AORTIC VALVE The aortic valve cusps are structurally normal. There is no aortic valve regurgitation. Tricuspid aortic valve. PULMONIC VALVE The pulmonic valve cusps are structurally normal. There is trace pulmonic valve regurgitation. AORTA The visualized aorta is normal in size. Measurements - Sinus: 3.1 cm. Mid ascending aorta 3.3 cm. Distal ascending aorta 3.2 cm. Mid arch 3.1 cm. PULMONARY ARTERIES The pulmonary arteries are normal. INTERATRIAL SEPTUM The interatrial septum is normal. INTERVENTRICULAR SEPTUM The interventricular septum is normal. PERICARDIUM The pericardium is normal. CORONARY ARTERIES The coronary arteries are unseen or not interrogated. CONCLUSIONS: - Exam indication: Family History of Heart Disease - The left ventricle is normal in size. Left ventricular systolic function is normal. EF = 55 5% (2D biplane) Normal left ventricular diastolic function. GLS= -19.5% Normal. - The right ventricle is normal in size. Right ventricular systolic function is normal. - There are no significant valvular abnormalities. - The patient has not had a prior CC echocardiographic exam for comparison. * * * Final * * * [employer] Image : [id number] [facility] CNOVon 04-15-2023 CNOV Office Visit (GENSWS ) ALL GASTELUM ([id number]) 1980 M Date Time Provider Department 04/15/23 2:00 PM AZUL KLEIN During your visit today, we recorded the following information about you: Temperature Pulse Blood pressure Weight 97.5 degrees 96/minute 128/84 88.8 kg Height 1.778 m Sherita AaronBRYANT 04/15/2023 2:10 PM Signed REVIEW OF SYSTEMS: General: The patient NOTES fatigue, denies weight loss, denies weight gain, denies feeling hot, and denies feelings of cold. Eyes: The patient denies glaucoma, denies eye injury/surgery, does not wear glasses or contacts. Ear/Nose/Throat: The patient denies allergies, denies hayfever, denies ear infections, and denies bloody noses. Cardiovascular: The patient denies chest pain, denies heart disease, denies high blood pressure,denies cardiac stent, denies prior heart attack, denies irregular heart beat, denies high cholesterol, denies poor circulation, denies heart failure, other cardiac issues, denies claudication, denies cold feet, denies peripheral arterial stent. Respiratory: The patient denies tuberculosis, denies pneumonia, denies frequent cough, denies pulmonary embolism, denies shortness of breath, and denies coughing up blood. Gastrointestinal: The patient denies difficulty swallowing, denies acid reflux, denies ulcers, denies vomiting, denies jaundice/hepatitis, denies gallbladder problems, denies black or tarry stools, denies hemorrhoids, denies bleeding from rectum, denies diverticulitis, denies constipation, denies diarrhea, denies loss of stool control, and denies hernias. Kidney/Bladder: The patient denies kidney stones, denies urine infections, and denies bloody urine. Skin: The patient denies a history of skin cancer, denies bleeding/changing moles, and denies a history of skin rash. Neurologic: The patient denies a history of epilepsy/convulsions, denies headaches, denies head/spinal injuries, and denies stroke/TIA. Psychiatric: The patient denies psychiatric medications, denies depression, and denies voices, denies substance abuse. Endocrine: The patient denies thyroid disorders, denies diabetes, and denies hormonal problems. Hematologic: The patient denies a history of bruising, denies bleeding, and denies anemia, denies blood clots. Infections: The patient denies a history of measles and mumps, denies rheumatic fever, and denies sexually transmitted diseases. Musculoskeletal: The patient denies back pain/injury, denies back problems, denies sciatica, denies knee/foot trouble, denies arthritis, or denies gout. When was patient's last Mammogram screening? N/A Last Colonoscopy: never BRYANT Roberto Richard T, MD 04/16/2023 5:30 AM Signed HISTORY AND PHYSICAL All Kruegercock 1980 REFERRING PHYSICIAN: Chris Forrester DO CHIEF COMPLAINT: Consult (Umbilical hernia w/o obstruction or gangrene) HPI: The patient is a 43 year old male with a complaint of discomfort in his epigastric and xiphoid region. The patient notes discomfort when leaning against his upper xiphoid area or at times with lifting or twisting. He states it feels like a piece of cartilage is bothering him. He does note the discomfort is worse after eating. He feels at times like it is a sore bulge in the area. He was seen by Dr. Forrester noted to have a small bulge in the upper abdomen to midepigastric area and a small umbilical hernia that was tender to palpation. He states the umbilical hernia does not bother him unless someone is pressing on it. The patient also has a strong family history of cardiac disease history of mitral valve prolapse. He notes a sensation of palpitations and occasional shortness of breath. Does not smoke but he does chew tobacco. CT scan of the abdomen pelvis was obtained. This demonstrated: IMPRESSION: 1. Small fat-containing umbilical hernia. 2. Additional incidental findings include: Small subcentimeter left renal angiomyolipoma. Uncomplicated colonic diverticulosis. No upper abdominal defects or hernias were noted. The patient is being seen by me today at the request of Dr. Chris Forrester DO for my opinion and advice regarding a general asymptomatic umbilical hernia and epigastric discomfort. PAST MEDICAL HISTORY Diagnosis Date Chronic cough Family history of premature coronary artery disease Family history of sudden cardiac in father Fractured patella Mitral valve disorder takes antibiotic before dental and surgeries Palpitations PAST SURGICAL HISTORY Procedure Laterality Date PAST SURGICAL HISTORY OF dislocated hand and injured wrist PAST SURGICAL HISTORY OF right patella fracture Current Outpatient Medications Medication Sig sulfamethoxazole-trimet hoprim 800-160 mg ORAL per tablet Take 1 tablet by mouth twice daily. (Patient not shant (more content not included)... [facility] NIRAVALL Vallejo ([id number]) 1980 M Date Time Provider Department 03/28/23 [facility] During your visit today, we recorded the following information about you: Chris Forrester DO 03/28/2023 12:00 PM Signed Please schedule him a General surgeon appt, concerns for a hernia Call Melia to schedule Chris Forrester DO Allergies As of Date: 03/28/2023 (No Known Allergies) Date Reviewed: 03/26/2023 Reviewed by: Nena Aguilar MA - Fully Assessed Prescriptions as of 05/15/2023 - sulfamethoxazole-trimet hoprim 800-160 mg ORAL per tablet Take 1 tablet by mouth twice daily. - docusate sodium (COLACE) 100 mg ORAL capsule Take 1 capsule by mouth twice daily. - DAILY MULTI-VITAMIN ORAL Take by mouth once daily. Problem List As Of Date 03/28/2023 Noted Resolved Fracture of right patella [S82.001A] 04/04/2011 Wound drainage [T14.8XXA] 08/20/2011 08/27/2011 Atypical nevus of abdominal wall [D22.5] 02/19/2023 Intra-abdominal and pelvic swelling, mass and l*02/19/2023 Chronic cough [R05.3] 02/19/2023 Well adult exam [Z00.00] 02/19/2023 Palpitations [R00.2] 02/19/2023 Other chest pain [R07.89] 02/19/2023 MVP (mitral valve prolapse) [I34.1] 02/19/2023 Family history of sudden cardiac in fathe*02/19/2023 Family history of premature coronary artery dis*02/19/2023 Encounter Status:Closed by CATRACHITA PEARSON on 05/15/23 [facility] 03-27-2023 CNPN Telephone (CARDMM) ALL GASTELUM ([id number]) 1980 M Date Time Provider Department 03/27/23 LASHONDA WOLFF During your visit today, we recorded the following information about you: Lashonda Wolff MD 03/28/2023 3:05 PM Addendum I attempted to contact patient via telephone to review his stress test results however there was no answer. It showed ventricular couplet and triplets per report. Recommend 14 day Ziopatch. 03/28/23 15:03: I re-attempted to call Mr. Gastelum via the telephone number provided however there was no answer. Allergies As of Date: 03/27/2023 (No Known Allergies) Date Reviewed: 03/26/2023 Reviewed by: Nena Aguilar MA - Fully Assessed Prescriptions as of 03/28/2023 - sulfamethoxazole-trimet hoprim 800-160 mg ORAL per tablet Take 1 tablet by mouth twice daily. - docusate sodium (COLACE) 100 mg ORAL capsule Take 1 capsule by mouth twice daily. - DAILY MULTI-VITAMIN ORAL Take by mouth once daily. Problem List As Of Date 03/27/2023 Noted Resolved Fracture of right patella [S82.001A] 04/04/2011 Wound drainage [L24.A9] 08/20/2011 08/27/2011 Atypical nevus of abdominal wall [D22.5] 02/19/2023 Intra-abdominal and pelvic swelling, mass and l*02/19/2023 Chronic cough [R05.3] 02/19/2023 Well adult exam [Z00.00] 02/19/2023 Palpitations [R00.2] 02/19/2023 Other chest pain [R07.89] 02/19/2023 MVP (mitral valve prolapse) [I34.1] 02/19/2023 Family history of sudden cardiac in fathe*02/19/2023 Family history of premature coronary artery dis*02/19/2023 Encounter Status:Closed by LASHONDA WOLFF on 03/28/23 [facility] CNOVon 03-26-2023 CNOV Office Visit (CARDMM ) ALL GASTELUM Yoni ([id number]) 1980 Date Time Provider Department 03/26/23 1:00 PM LASHONDA WOLFF During your visit today, we recorded the following information about you: Pulse Blood pressure Weight Height 69/minute 118/72 90.5 kg 1.778 m Lashonda Wolff MD 03/26/2023 2:09 PM Signed [facility] SECTION OF REGIONAL CARDIOLOGY OUTPATIENT VISIT DATE 03/26/2023 OUTPATIENT VISIT TYPE NEW PRIMARY CARE PHYSICIAN: Chris Forrester [address] [place] [address] Patient is being seen at the request of the referring physician for Shortness of breath and palpitations. HISTORY OF PRESENT ILLNESS: Mr. Gastelum is a 43 year old male, hx of MVP, COVID in 2019, family hx of SCD in his father, chews tobacco, who is referred for evaluation of SOB and palpitations. He is accompanied by his . He reports a constant discomfort on his left sided chest. Denies palpitations, orthopnea, PND, lightheadedness, syncope. EKG reviewed: NSR HR 69. Thyroid function testing was done on 03/10/2023: TSH 1.84, free T4 1.4, free T3 3.4. Lipid panel reviewed 03/10/2023: Total cholesterol 208, LDL 146, HDL 33, triglycerides 143. PAST MEDICAL HISTORY Diagnosis Date Mitral valve disorder takes antibiotic before dental and surgeries PAST SURGICAL HISTORY Procedure Laterality Date PAST SURGICAL HISTORY OF dislocated hand and injured wrist PAST SURGICAL HISTORY OF right patella fracture Social History Tobacco Use Smoking status: Some Days Types: Cigars Smokeless tobacco: Former Types: Chew Substance Use Topics Alcohol use: Yes Comment: social, 1-2 a month Drug use: No FAMILY HISTORY Problem Relation Age of Onset other (Other [Other]) Mother MVP Heart Father Hypertension Father age 46 massive NM ALLERGIES No Known Allergies CURRENT MEDICATIONS: sulfamethoxazole-trimet hoprim 800-160 mg ORAL per tablet Take 1 tablet by mouth twice daily. docusate sodium (COLACE) 100 mg ORAL capsule Take 1 capsule by mouth twice daily. DAILY MULTI-VITAMIN ORAL Take by mouth once daily. PHYSICAL EXAMINATION: BP 118/72 Pulse 69 Ht 177.8 cm (5' 10) Wt 90.5 kg (199 lb 8.3 oz) SpO2 98% BMI 28.63 kg/m? General: Appears comfortable in no apparent cardiopulmonary distress Neck: No JVD, no bruits CVS: S1, S2, No m/r/g Chest: CTAB Abd: Soft, nontender, no masses, BS present Ext: No pedal edema, pedal pulses 2+ bilaterally Neuro: No focal neurological deficits CARDIOVASCULAR MEDICINE TESTING: I have personally reviewed ECG. IMPRESSION/ PLAN: Mitral valve prolapse -He will schedule his echo today at our office building. Chest discomfort - Patient had stress testing performed today. Will contact patient with results. -Counseled on the importance of cessation of tobacco chewing. -Will arrange follow-up visit after echo was performed. -Based on the above, will provide him with exercise recommendations. Referring Provider: SELF [[id number]] Allergies As of Date: 03/26/2023 (No Known Allergies) Date Reviewed: 03/26/2023 Reviewed by: Nena Aguilar MA - Fully Assessed Reason for Visit: CARD New Patient Consult [1228] Cmt: PMH: MVP, palpitations, occasional sob, fam hx of heart disease Primary Visit Diagnosis:Chest discomfort [R07.89] Prescriptions as of 03/28/2023 - sulfamethoxazole-trimet hoprim 800-160 mg ORAL per tablet Take 1 tablet by mouth twice daily. - docusate sodium (COLACE) 100 mg ORAL capsule Take 1 capsule by mouth twice daily. - DAILY MULTI-VITAMIN ORAL Take by mouth once daily. Problem List As Of Date 03/26/2023 Noted Resolved Fracture of right patella [S82.001A] 04/04/2011 Wound drainage [L24.A9] 08/20/2011 08/27/2011 Atypical nevus of abdominal wall [D22.5] 02/19/2023 Intra-abdominal and pelvic swelling, mass and l*02/19/2023 Chronic cough [R05.3] 02/19/2023 Well adult exam [Z00.00] 02/19/2023 Palpitations [R00.2] 02/19/2023 Other chest pain [R07.89] 02/19/2023 MVP (mitral valve prolapse) [I34.1] 02/19/2023 Family history of sudden cardiac in fathe*02/19/2023 Family history of premature coronary artery dis*02/19/2023 Disposition: Return in about 4 weeks (around 04/23/2023) for Follow up visit. Follow-up and Disposition History for Encounter Date Provider Department Center 03/26/2023 [id number] WOLFF [facility] Encounter Status:Closed by LASHONDA WOLFF on 03/26/23 [facility] 03-26-2023 [facility] Telephone (DORIS) ALL GASTELUM ([id number]) 1980 M Date Time Provider Department 03/26/23 LASHONDA WOLFF During your visit today, we recorded the following information about you: Morenita Brink 03/26/2023 1:59 PM Signed Patient needs appointment with Dr Wolff after his echo when schedule opens up Morenita Brink 04/02/2023 1:32 PM Signed First attempt: called patient and left message for patient to call back and scheduled patient Sincere Thurston 04/02/2023 1:50 PM Signed Patient is scheduled Allergies As of Date: 03/26/2023 (No Known Allergies) Date Reviewed: 03/26/2023 Reviewed by: eNna Aguilar MA - Fully Assessed Reason for Visit: Appointment [[id number]] Prescriptions as of 04/02/2023 - sulfamethoxazole-trimet hoprim 800-160 mg ORAL per tablet Take 1 tablet by mouth twice daily. - docusate sodium (COLACE) 100 mg ORAL capsule Take 1 capsule by mouth twice daily. - DAILY MULTI-VITAMIN ORAL Take by mouth once daily. Problem List As Of Date 03/26/2023 Noted Resolved Fracture of right patella [S82.001A] 04/04/2011 Wound drainage [L24.A9] 08/20/2011 08/27/2011 Atypical nevus of abdominal wall [D22.5] 02/19/2023 Intra-abdominal and pelvic swelling, mass and l*02/19/2023 Chronic cough [R05.3] 02/19/2023 Well adult exam [Z00.00] 02/19/2023 Palpitations [R00.2] 02/19/2023 Other chest pain [R07.89] 02/19/2023 MVP (mitral valve prolapse) [I34.1] 02/19/2023 Family history of sudden cardiac in fathe*02/19/2023 Family history of premature coronary artery dis*02/19/2023 Encounter Status:Closed by MORENITA BRINK on 03/26/23 Normal [facility] ECG COMPLETEon 03-26-2023 ECG COMPLETE Ventricular Rate : 6 9 BPM Atrial Rate : 69 BPM P-R Interval : 160 ms QRS Duration : 90 ms Q-T Interval : 376 ms QTC Calculation(Bazett) : 402 ms Calculated P Tupman : 39 degrees Calculated R Tupman : 61 degrees Calculated T Tupman : 30 degrees NORMAL SINUS RHYTHM WITH SINUS ARRHYTHMIA NORMAL ECG Confirmed by DARYL BAKER DO ([id number]) on 03/26/2023 4:34:09 PM NAME : ALL GASTELUM PID : [id number] : 1980 Gender : Male Race : ORD : [id number] Procedure Date : Mar 26 2023 13:14:00 Edit Date : Mar 26 2023 16:34:11 Diagnosis: NORMAL SINUS RHYTHM WITH SINUS ARRHYTHMIA NORMAL ECG Confirmed by DARYL BAKER DO ([id number]) on 03/26/2023 4:34:09 PM Test Reason : R00.2 Palpitations Location : 185 : [facility] Overread By : DARYL BAKER DO Edited By : DARYL BAKER DO Referred By : , Acquired by : Arminda Richmond [facility] EXERCISE STRESS ECG (WITHOUT IMAGING)on 03-26-2023 EXERCISE STRESS ECG (WITHOUT IMAGING) Stress Oncology Physician Report: Exercise Stress ECG (without Imaging) [facility] Date of service: 03/26/2023 12:40:49 PM Supervising physician: Nico Garza MD PATIENT: Name: MR. ALL GASETLUM Age: 43 years Gender: M The supervising physician was in the department and immediately available. Final ---- Stress ECG Report: Exercise Stress ECG (without Imaging) [facility] Date of service: 03/26/2023 12:40:49 PM Ordering physician: CHRIS FORRESTER mortgage specialist: Nuha [place] Vocational Aide: Teressa Henning Interpreting physician: Nico Garza MD Patient name: MR. ALL GASTELUM Age: 43 years Gender: M Indication: Chest pressure / Chest tightness Stress ECG Conclusion: Conclusion: Normal Stress ECG Summary: The patient's resting heart rate was 54 bpm and blood pressure was 128/84 mmHg. The patient exercised according to the Darnell protocol. The estimated end-exercise MET level achieved using the FRIEND equation was 10.2, which is within the 25th to 50th percentile for age and sex. The estimated end-exercise MET level achieved using the previous ACSM equation was 12.9. The test was terminated due to end of protocol and the total exercise time was 11 minutes and 30 seconds. Other symptoms during the test included chest discomfort. The maximum heart rate was 173 bpm, which is 97% of the predicted heart rate for age. This is an adequate heart rate response. Peak blood pressure was 180/90 mmHg. The double product achieved was [address]. Medications: Last Used NONE Resting ECG: Sinus Bradycardia Symptoms at rest: Chest Discomfort Exercise Protocol: Darnell Stress Exercise Table: +-----+ +---- ----+ +---+--- +---+----+----+ Stage Speed (MPH) Grade(%) Time (min) HR SYS CARSON RPE METS +-----+ +---- ----+ +---+--- +---+----+----+ 1 1.7 10.0 3.0 98 142 80 11.0 4.2 +-----+ +---- ----+ +---+--- +---+----+----+ 2 2.5 12.0 6.0 109 160 80 13.0 6.1 +-----+ +---- ----+ +---+--- +---+----+----+ 3 3.4 14.0 9.0 146 170 84 13.0 8.3 +-----+ +---- ----+ +---+--- +---+----+----+ +-----+ +---- -----+ +---+-- -+---+----+----+ Speed (MPH) Grade (%) Time (min) HR SYS CARSON RPE METS +-----+ +---- -----+ +---+-- -+---+----+----+ Final 4.2 16.0 11.50 173 180 90 14.0 10.2 +-----+ +---- -----+ +---+-- -+---+----+----+ Recovery Table: +------+ +---+ ---+---+ Stage Time (min) HR SYS CARSON +------+ +---+ ---+---+ 1 1.0 144 162 86 +------+ +---+ ---+---+ 2 2.0 126 160 84 +------+ +---+ ---+---+ 3 3.0 114 152 80 +------+ +---+ ---+---+ 4 5.0 99 126 80 +------+ +---+ ---+---+ Stress Observations: Resting HR: 54 bpm Peak HR: 173 bpm (97% MPHR) Resting BP: 128 / 84 mmHg Peak BP: 180 / 90 mmHg Total Exercise Time: 11 minutes 30 seconds METS achieved: 10.2 Chronotropic response index (CRI): 0.96 Heart rate recovery (HRR): 29 bpm Rate Pressure Product (RPP): 10670 San Treadmill Score: 11.5 Stress Exercise Observations: Reason for test termination: end of protocol, Symptoms during test: Other symptoms during the test included chest discomfort, Heart rate response: Adequate heart rate response, Normal CRI (>0.8 Not on B Ramon) and Normal HRR (>12 or >[address]/EC), Blood pressure response: Normal BP response, ST segment and T wave changes: No ST changes, San Treadmill Score: Normal San Treadmill Score (>=5) and Arrhythmias: Isolated ventricular couplet(s) / triplet(s) with stress Comments: pt had chest discomfort at rest prior to exercise, rates 1/10 mid sternal, remains the same with exercise and in recovery IMPORTANT NOTE REGARDING ESTIMATED MET VALUES: Effective 02/13/2020, the reference equation for determining estimated MET values for [facility] stress tests changed. Comparison of test results before and after that date may show a change in estimated MET values for peak/max exercise despite a test duration that is similar in length. The validity of the new FRIEND equation for exercise METS is endorsed by the [place] [employer]. Ruben P, Enzo LA, Cristy R, Jack J, Chino J. New Generalized Equation for Predicting Maximal Oxygen Uptake (from the Fitness Registry and the Importance of Exercise National Database). The [place] Journal of Cardiology. 2017;120(4):688-692). Final CC Insmed Medical Image : [id number] sSISUID See (more content not included)... Normal [facility] Serjio 03-12-2023 NIKHIL Telephone (FAMPWS) ALL GASTELUM ([id number]) 1980 M Date Time Provider Department 03/12/23 CHRIS FORRESTER During your visit today, we recorded the following information about you: Chris Forrester DO 03/12/2023 9:37 PM Signed Called and left message with on his results of his blood work and CT abdpelvis Recommended general surgeon opinion Chris Forrester DO Allergies As of Date: 03/12/2023 (No Known Allergies) Date Reviewed: 03/07/2023 Reviewed by: Misty Vazquez, RT(R) - Fully Assessed Primary Visit Diagnosis:Umbilical hernia without obstruction or gangrene [K42.9] Other Visit Diagnosis:Intra-abdomin al and pelvic swelling, mass and lump, unspecified site [R19.00] Order(s):CONSULT TO GENERAL SURGERY [9011] Order #: [id number]: 1 FUTURE Prescriptions as of 05/15/2023 - sulfamethoxazole-trimet hoprim 800-160 mg ORAL per tablet Take 1 tablet by mouth twice daily. - docusate sodium (COLACE) 100 mg ORAL capsule Take 1 capsule by mouth twice daily. - DAILY MULTI-VITAMIN ORAL Take by mouth once daily. Problem List As Of Date 03/12/2023 Noted Resolved Fracture of right patella [S82.001A] 04/04/2011 Wound drainage [T14.8XXA] 08/20/2011 08/27/2011 Atypical nevus of abdominal wall [D22.5] 02/19/2023 Intra-abdominal and pelvic swelling, mass and l*02/19/2023 Chronic cough [R05.3] 02/19/2023 Well adult exam [Z00.00] 02/19/2023 Palpitations [R00.2] 02/19/2023 Other chest pain [R07.89] 02/19/2023 MVP (mitral valve prolapse) [I34.1] 02/19/2023 Family history of sudden cardiac in fathe*02/19/2023 Family history of premature coronary artery dis*02/19/2023 Encounter Status:Closed by CATRACHITA PEARSON on 05/15/23 Normal [facility] CBC W Auto Differential pane l (Bld)on 03-10-2023 Basophils (Bld) [#/Vol] 10*3/uL Normal <0.11 [facility] Comment on above: Order Comment: Speci men Type: BLOOD SPECIMENOrdering Facility: [facility] Address: [address] [place] [address] Performed By: #### 5 7021-8 ####[facility]ENTERWMELIA [id number] [place] [address] [place] Basophils/100 WBC (Bld) 0.4 % Normal [facility] Comment on above: Order Comment: Speci men Type: BLOOD SPECIMENOrdering Facility: [facility] Address: [address] [place] [address] Performed By: #### 5 7021-8 ####[facility] [id number] [place] [address] [place] Differential cell count method Nom (Bld) Auto Normal [facility] Comment on above: Order Comment: Speci men Type: BLOOD SPECIMENOrdering Facility: [facility] Address: [address] [place] [address] Performed By: #### 5 7021-8 ####[facility]ENTERLIA [id number] [place] [address] [place] Eosinophils (Bld) [#/Vol] 0.25 10*3/uL Normal <0.46 [facility] Comment on above: Order Comment: Speci men Type: BLOOD SPECIMENOrdering Facility: [facility] Address: [address] [place] [address] Performed By: #### 5 7021-8 ####[facility]ENTERLIA [id number] [place] [address] [place] Eosinophils/100 WBC (Bld) 5.1 % Normal [facility] Comment on above: Order Comment: Speci men Type: BLOOD SPECIMENOrdering Facility: [facility] Address: [address] [place] [address] Performed By: #### 5 7021-8 ####[facility] YFNMARCIO [id number] [place] [address] [place] Erythrocyte distribution width (RBC) [Ratio] 11.5 % Normal 11.5-15.0 [facility] Comment on above: Order Comment: Speci men Type: BLOOD SPECIMENOrdering Facility: [facility] Address: [address] [place] [address] Performed By: #### 5 7021-8 ####[facility] MIAMINCJUSTINA [id number] [place] [address] [place] Hematocrit (Bld) [Volume fraction] 46.1 % Normal 39.0-51.0 [facility] Comment on above: Order Comment: Speci men Type: BLOOD SPECIMENOrdering Facility: [facility] Address: [address] [place] [address] Performed By: #### 5 7021-8 ####[facility]ENTERJUSTINA [id number] [place] [address] [place] Hemoglobin (Bld) [Mass/Vol] 15.7 g/dL Normal 13.0-17.0 [facility] Comment on above: Order Comment: Speci men Type: BLOOD SPECIMENOrdering Facility: [facility] Address: [address] [place] [address] Performed By: #### 5 7021-8 ####[facility] MIAMICLEVELIA [id number] [place] [address] [place] Immature granulocytes (Bld) [#/Vol] 10*3/uL Normal <0.10 [facility] Comment on above: Order Comment: Speci men Type: BLOOD SPECIMENOrdering Facility: [facility] Address: [address] [place] [address] Performed By: #### 5 7021-8 ####[facility]ENTERLIA [id number] [place] [address] [place] Immature granulocytes/100 WBC (Bld) 0.2 % Normal [facility] Comment on above: Order Comment: Speci men Type: BLOOD SPECIMENOrdering Facility: [facility] Address: [address] [place] [address] Performed By: #### 5 7021-8 ####[facility] [id number] [place] [address] [place] Lymphocytes (Bld) [#/Vol] 1.70 10*3/uL Normal 1.00-4.00 [facility] Comment on above: Order Comment: Speci men Type: BLOOD SPECIMENOrdering Facility: [facility] Address: [address] [place] [address] Performed By: #### 5 7021-8 ####[facility] [id number] [place] [address] [place] Lymphocytes/100 WBC (Bld) 34.4 % Normal [facility] Comment on above: Order Comment: Speci men Type: BLOOD SPECIMENOrdering Facility: [facility] Address: [address] [place] [address] Performed By: #### 5 7021-8 ####[facility] [id number] [place] [address] [place] MCH (RBC) [Entitic mass] 30.2 pg Normal 26.0-34.0 [facility] Comment on above: Order Comment: Speci men Type: BLOOD SPECIMENOrdering Facility: [facility] Address: [address] [place] [address] Performed By: #### 5 7021-8 ####[facility] [id number] [place] [address] [place] MCHC (RBC) [Mass/Vol] 34.1 g/dL Normal 30.5-36.0 [facility] Comment on above: Order Comment: Speci men Type: BLOOD SPECIMENOrdering Facility: [facility] Address: [address] [place] [address] Performed By: #### 5 7021-8 ####[facility] [id number] [place] [address] [place] MCV (RBC) [Entitic vol] 88.7 fL Normal 80.0-100.0 [facility] Comment on above: Order Comment: Speci men Type: BLOOD SPECIMENOrdering Facility: [facility] Address: [address] [place] [address] Performed By: #### 5 7021-8 ####[facility] [id number] [place] [address] [place] Monocytes (Bld) [#/Vol] 0.36 10*3/uL Normal <0.87 [facility] Comment on above: Order Comment: Speci men Type: BLOOD SPECIMENOrdering Facility: [facility] Address: [address] [place] [address] Performed By: #### 5 7021-8 ####[facility] [id number] [place] [address] [place] Monocytes/100 WBC (Bld) 7.3 % Normal [facility] Comment on above: Order Comment: Speci men Type: BLOOD SPECIMENOrdering Facility: [facility] Address: [address] [place] [address] Performed By: #### 5 7021-8 ####[facility] [id number] [place] [address] [place] Neutrophils (Bld) [#/Vol] 2.60 10*3/uL Normal 1.45-7.50 [facility] Comment on above: Order Comment: Speci men Type: BLOOD SPECIMENOrdering Facility: [facility] Address: [address] [place] [address] Performed By: #### 5 7021-8 ####[facility] MILLWNCLIA [id number] [place] [address] [place] Neutrophils/100 WBC (Bld) 52.6 % Normal [facility] Comment on above: Order Comment: Speci men Type: BLOOD SPECIMENOrdering Facility: [facility] Address: [address] [place] [address] Performed By: #### 5 7021-8 ####[facility]ENTERLIA [id number] [place] [address] [place] Nucleated RBC (Bld) [#/Vol] 10*3/uL Normal <0.01 [facility] Comment on above: Order Comment: Speci men Type: BLOOD SPECIMENOrdering Facility: [facility] Address: [address] [place] [address] Performed By: #### 5 7021-8 ####[facility] MIAMINCLIA [id number] [place] [address] [place] Nucleated RBC/100 WBC (Bld) [Ratio] 0.0 /100 WBC Normal [facility] Comment on above: Order Comment: Speci men Type: BLOOD SPECIMENOrdering Facility: [facility] Address: [address] [place] [address] Performed By: #### 5 7021-8 ####[facility] MIAMINCLIA [id number] [place] [address] [place] Platelet mean volume (Bld) [Entitic vol] 9.7 fL Normal 9.0-12.7 [facility] Comment on above: Order Comment: Speci men Type: BLOOD SPECIMENOrdering Facility: [facility] Address: [address] [place] [address] Performed By: #### 5 7021-8 ####[facility]ENTERLIA [id number] [place] [address] [place] Platelets (Bld) [#/Vol] 235 10*3/uL Normal 150-400 [facility] Comment on above: Order Comment: Speci men Type: BLOOD SPECIMENOrdering Facility: [facility] Address: [address] [place] [address] Performed By: #### 5 7021-8 ####[facility] [id number] [place] [address] [place] RBC (Bld) [#/Vol] 5.20 10*6/uL Normal 4.20-6.[address] [facility] Comment on above: Order Comment: Speci men Type: BLOOD SPECIMENOrdering Facility: [facility] Address: [address] [place] [address] Performed By: #### 5 7021-8 ####[facility] [id number] [place] [address] [place] WBC (Bld) [#/Vol] 4.94 10*3/uL Normal 3.70-11.[address] [facility] Comment on above: Order Comment: Speci men Type: BLOOD SPECIMENOrdering Facility: [facility] Address: [address] [place] [address] Performed By: #### 5 7021-8 ####[facility]ENTERLIA [id number] [place] [address] [place] [address] ABD/PEL W IVCONon -13-[address] ABD/PEL W IVCON * * *Final Report* * * DATE OF EXAM: Mar 10 2023 11:22AM [facility] 0530 - CT ABD/PEL W IVCON / PROCEDURE REASON: Intra-abdominal and pelvic swelling, mass and lump, unspecified site * * * * Physician Interpretation * * * * EXAMINATION: CT ABDOMEN AND PELVIS WITH IV CONTRAST CLINICAL HISTORY: TECHNIQUE: CT of the abdomen and pelvis was performed using standard technique, scanning from just above the dome of the diaphragm to the symphysis pubis. MQ: CTAP_3 Contrast: IV: 100 ml of Omnipaque 350 Oral: 12 ml of Omni 240 10-25ml diluted with water CT Radiation dose: Integrated Dose-length product (DLP) for this visit = 617 mGy*cm. CT Dose Reduction Employed: Automated exposure control(AEC) and iterative recon COMPARISON: None. RESULT: Liver: No mass. Biliary: No bile duct dilation. Gallbladder present without radiopaque stones or wall thickening. Spleen: No mass. No splenomegaly. Pancreas: No mass or duct dilation. Adrenals: No mass. Kidneys: No calculus or hydronephrosis. 4 mm macroscopic fat-containing left renal upper pole angiomyolipoma. GI tract: No dilation or wall thickening. Normal appendix. Few scattered uncomplicated left-sided predominant colonic diverticuli. Lymph nodes: No abdominal or pelvic lymphadenopathy. Mesentery/Peritoneum: No ascites or mass. Retroperitoneum: No mass. Vasculature: Abdominal aorta normal in caliber. Pelvis: No mass, ascites or fluid collection. Bones/Soft Tissues: Small fat-containing umbilical hernia with the hernia mouth measuring approximately 1 cm and with the hernia sac measuring 2 cm. Mild degenerative changes. Lower thorax: Unremarkable. Agricultural Education Teacher (topogram) images: No additional findings. IMPRESSION: 1. Small fat-containing umbilical hernia. 2. Additional incidental findings include: Small subcentimeter left renal angiomyolipoma. Uncomplicated colonic diverticulosis. 911 Operator: JOSHUA Transcribe Date/Time: Mar 10 2023 11:35A Dictated by : BASSAM CHINCHILLA MD This examination was interpreted and the report reviewed and electronically signed by: BASSAM CHINCHILLA MD on Mar 10 2023 11:45AM EST [id number] Normal [facility] Comprehensive metabolic 2000 panelon 03-10-2023 Albumin [Mass/Vol] 4.5 g/dL Normal 3.9-4.9 [facility] Comment on above: Order Comment: Speci men Type: BLOOD SPECIMENOrdering Facility: [facility] Address: [address] [place] [address] Performed By: #### 2 4323-8 ####[facility] [id number] [place] [address] [place] ALP [Catalytic activity/Vol] 43 U/L Normal 38-113 [facility] Comment on above: Order Comment: Speci men Type: BLOOD SPECIMENOrdering Facility: [facility] Address: [address] [place] [address] Performed By: #### 2 4323-8 ####[facility]ENTERWNCLIA [id number] [place] [address] [place] ALT [Catalytic activity/Vol] 17 U/L Normal 10-54 [facility] Comment on above: Order Comment: Speci men Type: BLOOD SPECIMENOrdering Facility: [facility] Address: [address] [place] [address] Performed By: #### 2 4323-8 ####[facility] MIAMINCLIA [id number] [place] [address] [place] Anion gap [Moles/Vol] 10 mmol/L Normal 9-18 [facility] Comment on above: Order Comment: Speci men Type: BLOOD SPECIMENOrdering Facility: [facility] Address: [address] [place] [address] Performed By: #### 2 4323-8 ####[facility] MIAMINCLIA [id number] [place] [address] [place] AST [Catalytic activity/Vol] 13 U/L Low 14-40 [facility] Comment on above: Order Comment: Speci men Type: BLOOD SPECIMENOrdering Facility: [facility] Address: [address] [place] [address] Performed By: #### 2 4323-8 ####[facility] MIAMINCLIA [id number] [place] [address] [place] Bilirubin [Mass/Vol] 0.5 mg/dL Normal 0.2-1.3 [facility] Comment on above: Order Comment: Speci men Type: BLOOD SPECIMENOrdering Facility: [facility] Address: [address] [place] [address] Performed By: #### 2 4323-8 ####[facility] MILL[facility]OWNCL[facility] [id number] [place] [address] [place] Calcium [Mass/Vol] 9.3 mg/dL Normal 8.5-10.2 [facility] Comment on above: Order Comment: Speci men Type: BLOOD SPECIMENOrdering Facility: [facility] Address: [address] [place] [address] Performed By: #### 2 4323-8 ####[facility] MILLTOWNCLIA [id number] [place] [address] [place] Chloride [Moles/Vol] 103 mmol/L Normal 97-105 [facility] Comment on above: Order Comment: Speci men Type: BLOOD SPECIMENOrdering Facility: [facility] Address: [address] [place] [address] Performed By: #### 2 4323-8 ####[facility] MILLTOWNCLIA [id number] [place] [address] [place] CO2 [Moles/Vol] 26 mmol/L Normal 22-30 [facility] Comment on above: Order Comment: Speci men Type: BLOOD SPECIMENOrdering Facility: [facility] Address: [address] [place] [address] Performed By: #### 2 4323-8 ####[facility] MILLTOWNCLIA [id number] [place] [address] [place] Creatinine [Mass/Vol] 1.27 mg/dL High 0.73-1.22 [facility] Comment on above: Order Comment: Speci men Type: BLOOD SPECIMENOrdering Facility: [facility] Address: [address] [place] [address] Performed By: #### 2 4323-8 ####[facility] [id number] [place] [address] [place] Creatinine and Glomerular filtration rate.predicted panel (S/P/Bld) 72 mL/min/1.73m??? Normal >=60 [facility] Comment on above: Order Comment: Amado oliva Type: BLOOD SPECIMENOrdering Facility: [facility] Address: [address] [place] [address] Result Comment: Akua mated Glomerular Filtration Rate (eGFR) is calculated using the 2020 CKD-EPI creatinine equation. This equation utilizes serum creatinine, sex, and age as parameters. The creatinine assay has traceable calibration to isotope dilution-mass spectrometry. Refer to KDIGO guidelines for clinical interpretation. In patients with unstable renal function, e.g. those with acute kidney injury, the eGFR may not accurately reflect actual GFR. Performed By: #### 2 4323-8 ####[facility] [id number] [place] [address] [place] Glucose [Mass/Vol] 94 mg/dL Normal 74-99 [facility] Comment on above: Order Comment: Amado oliva Type: BLOOD SPECIMENOrdering Facility: [facility] Address: [address] [place] [address] Result Comment: The [place] Diabetes Association (ADA) provides guidance for cutoff values for fasting glucose and random glucose. The ADA defines fasting as no caloric intake for at least 8 hours. Fasting plasma glucose results between 100 to 125 mg/dL indicate increased risk for diabetes (prediabetes). Fasting plasma glucose results greater than or equal to 126 mg/dL meet the criteria for diagnosis of diabetes. In the absence of unequivocal hyperglycemia, results should be confirmed by repeat testing. In a patient with classic symptoms of hyperglycemia or hyperglycemic crisis, random plasma glucose results greater than or equal to 200 mg/dL meet the criteria for diagnosis of diabetes. Reference: Standards of Medical Care in Diabetes 2016, [place] Diabetes Association. Diabetes Care. 2016.39(Suppl 1). Performed By: #### 2 4323-8 ####[facility] [id number] [place] [address] [place] Potassium [Moles/Vol] 4.7 mmol/L Normal 3.7-5.1 [facility] Comment on above: Order Comment: Speci men Type: BLOOD SPECIMENOrdering Facility: [facility] Address: [address] [place] [address] Performed By: #### 2 4323-8 ####[facility] MILLWNCLIA [id number] [place] [address] [place] Protein [Mass/Vol] 6.9 g/dL Normal 6.3-8.0 [facility] Comment on above: Order Comment: Speci men Type: BLOOD SPECIMENOrdering Facility: [facility] Address: [address] [place] [address] Performed By: #### 2 4323-8 ####[facility] MIAMINCLI [id number] [place] [address] [place] Sodium [Moles/Vol] 139 mmol/L Normal 136-144 [facility] Comment on above: Order Comment: Speci men Type: BLOOD SPECIMENOrdering Facility: [facility] Address: [address] [place] [address] Performed By: #### 2 4323-8 ####[facility] MIAMINCLIA [id number] [place] [address] [place] Urea nitrogen [Mass/Vol] 14 mg/dL Normal 9-24 [facility] Comment on above: Order Comment: Speci men Type: BLOOD SPECIMENOrdering Facility: [facility] Address: [address] [place] [address] Performed By: #### 2 4323-8 ####[facility] MIAMINCLIA [id number] [place] [address] [place] HbA1c (Bld)on 03-10-2023 Average glucose Estimated from glycated hemoglobin (Bld) [Mass/Vol] 103 mg/dL Normal [facility] Comment on above: Order Comment: Speci men Type: BLOOD SPECIMENOrdering Facility: [facility] Address: [address] [place] [address] Result Comment: eAG: (Estimated average glucose) is a calculated value from HgbA1c and is community engagement representative of the average blood glucose level in the last 2-3 month period. Performed By: #### 5 5454-3 ####[facility] LABCLIA [id number] [place] [address] [place] HbA1c (Bld) [Mass fraction] 5.2 % Normal 4.3-5.6 [facility] Comment on above: Order Comment: Speci men Type: BLOOD SPECIMENOrdering Facility: [facility] Address: [address] [place] [address] Result Comment: Amer [place] Diabetes Association guidelines indicate that patients with HgbA1c in the range 5.7-6.4% are at increased risk for development of diabetes, and intervention by lifestyle modification may be beneficial. HgbA1c greater or equal to 6.5% is considered diagnostic of diabetes. Performed By: #### 5 5454-3 ####[facility] LABCLIA [id number] [place] [address] [place] Lipid 1996 panelon 3 Cholesterol [Mass/Vol] 208 mg/dL High <200 [facility] Comment on above: Order Comment: Speci men Type: BLOOD SPECIMENOrdering Facility: [facility] Address: [address] [place] [address] Result Comment: <200 mg/dL, Desirable 200-239 mg/dL, Borderline high >239 mg/dL, High Performed By: #### 2 4331-1 ####[facility] LABCLIA [id number] [place] [address] [place] [facility] [id number] [place] [address] [place]#### 3051-0, 3024-7, 3016-3 ####[facility] LABCLIA [id number] [address] [place] Cholesterol in HDL [Mass/Vol] 33 mg/dL Low >39 [facility] Comment on above: Order Comment: Speci men Type: BLOOD SPECIMENOrdering Facility: [facility] Address: [address] [place] [address] Result Comment: 40-5 9 mg/dL, Acceptable >59 mg/dL, High: Negative risk factor for coronary heart disease <40 mg/dL, Low: Positive risk factor for coronary heart disease Performed By: #### 2 4331-1 ####[facility] LABCLIA [id number] [address] STATES [facility] [id number] [place] [address] [place]#### 3051-0, 3024-7, 3016-3 ####[facility] LABCLIA [id number] [address] [place] Cholesterol in LDL [Mass/Vol] 146 mg/dL High <100 [facility] Comment on above: Order Comment: Speci men Type: BLOOD SPECIMENOrdering Facility: [facility] Address: [address] [place] [address] Result Comment: <100 mg/dL, Optimal 100-129 mg/dL, Near optimal/above optimal 130-159 mg/dL, Borderline high 160-189 mg/dL, High >189 mg/dL, Very high Secondary prevention optimal LDL Cholesterol levels are recommended to be < 70 mg/dL Performed By: #### 2 4331-1 ####[facility] LABCLIA [id number] [address] STATES OF [facility] [id number] [place] [address] [place]#### 3051-0, 3024-7, 3016-3 ####[facility] LABCLIA [id number] [address] STATES [facility] Cholesterol in LDL/Cholesterol in HDL [Mass ratio] 4.42 {ratio} High <2.54 [facility] Comment on above: Order Comment: Speci men Type: BLOOD SPECIMENOrdering Facility: [facility] Address: [address] [place] [address] Result Comment: Cornell millan: 1. National Cholesterol Education Program ATP III Guideline At-A-Glance Quick Desk Reference: National Heart, Lung, and Blood [place]. National Institutes of Health. 2001: NIH Publication No. 01-3305. 2. An International Atherosclerosis Society position paper: global recommendations for the management of dyslipidemia: executive summary, Atherosclerosis. 2014: 232(2):410-413. Performed By: #### 2 4331-1 ####[facility] LABCLIA [id number] [id number] [place] [address] [place]#### 3051-0, 3024-7, 3016-3 ####[facility] LABCLIA [id number] [place] [address] [place] Cholesterol in VLDL [Mass/Vol] 29 mg/dL Normal <30 [facility] Comment on above: Order Comment: Speci men Type: BLOOD SPECIMENOrdering Facility: [facility] Address: [address] [place] [address] Performed By: #### 2 4331-1 ####[facility] LABCLIA [id number] [address] [id number] [place] [address] [place]#### 3051-0, 3024-7, 3016-3 ####[facility] LABCLIA [id number] [place] [address] [place] Cholesterol non HDL [Mass/Vol] 175 mg/dL High <130 [facility] Comment on above: Order Comment: Speci men Type: BLOOD SPECIMENOrdering Facility: [facility] Address: [address] [place] [address] Result Comment: <130 mg/dL, Optimal 130-159 mg/dL, Near optimal/above optimal 160-189 mg/dL, Borderline high 190-219 mg/dL, High >219 mg/dL, Very high Secondary prevention optimal non HDL Cholesterol levels are recommended to be <100 mg/dL Performed By: #### 2 4331-1 ####[facility] LABCLIA [id number] [address] [id number] [place] [address] [place]#### 3051-0, 3024-7, 3016-3 ####[facility] LABCLIA [id number] [place] [address] [place] Cholesterol.total/Cho lesterol in HDL [Mass ratio] 6.30 {ratio} High <5.10 [facility] Comment on above: Order Comment: Speci men Type: BLOOD SPECIMENOrdering Facility: [facility] Address: [address] [place] [address] Performed By: #### 2 4331-1 ####[facility] LABCLIA [id number] [address] [id number] [place] [address] [place]#### 3051-0, 3024-7, 3016-3 ####[facility] LABCLIA [id number] [place] [address] [place] FASTING TIME 12 hrs Normal [facility] Comment on above: Order Comment: Speci men Type: BLOOD SPECIMENOrdering Facility: [facility] Address: [address] [place] [address] Performed By: #### 2 4331-1 ####[facility] LABCLIA [id number] [place] [address] [place] [facility] [id number] [place] [address] [place]#### 3051-0, 3024-7, 3016-3 ####[facility] LABCLIA [id number] [place] [address] [place] Triglyceride [Mass/Vol] 143 mg/dL Normal <150 [facility] Comment on above: Order Comment: Speci men Type: BLOOD SPECIMENOrdering Facility: [facility] Address: [address] [place] [address] Result Comment: <150 mg/dL, Normal 150-199 mg/dL, Borderline high 200-499 mg/dL, High >499 mg/dL, Very high Performed By: #### 2 4331-1 ####[facility] LABIA [id number] [place] [address] [place] [facility] [id number] [place] [address] [place]#### 3051-0, 3024-7, 3016-3 ####[facility] LABCLIA [id number] [place] [address] [place] T3Free SerPl-mCncon 03-10-20 23 Free T3 [Mass/Vol] 3.4 pg/mL Normal 2.3-4.1 [facility] Comment on above: Order Comment: Speci men Type: BLOOD SPECIMENOrdering Facility: [facility] Address: [address] [place] [address] Performed By: #### 2 4331-1 ####[facility] LABCLIA [id number] STATES OF [facility] [id number] [place] [address] [place]#### 3051-0, 3023-7, 3015-3 ####[facility] LABCLIA [id number] [place] [address] [place] T4 Free SerPl-mCncon 023 Free T4 [Mass/Vol] 1.4 ng/dL Normal 0.9-1.7 [facility] Comment on above: Order Comment: Speci men Type: BLOOD SPECIMENOrdering Facility: [facility] Address: [address] [place] [address] Performed By: #### 2 4331-1 ####[facility] LABCLIA [id number] [address] STATES OF [facility] [id number] [place] [address] [place]#### 3051-0, 7, 3 ####[facility] LABCLIA [id number] [place] [address] [place] TSH SerPl-aCncon 03-10-2023 TSH Qn 1.840 m[IU]/L Normal 0.270-4.200 [facility] Comment on above: Order Comment: Speci men Type: BLOOD SPECIMENOrdering Facility: [facility] Address: [address] [place] [address] Performed By: #### 2 4331-1 ####[facility] LABCLIA [id number] [address] STATES OF [facility] [id number] [place] [address] [place]#### 3051-0, 3023-7, 3015-3 ####[facility] [id number] [place] [address] [place] Scotty 02-19-2023 CNOV Office Visit (FAMPWS ) ALL GASTELUM ([id number]) 1980 M Date Time Provider Department 02/19/23 7:30 PM [facility] visit today, we recorded the following information about you: Temperature Pulse Respiration Blood pressure 97.6 degrees 80/minute 16/minute 124/80 Weight 93.9 kg Chris Forrester DO 02/19/2023 9:58 PM Signed CC: All Gastelum is a 43 year old male who presents to the office to establish care. HPI: Hx of MVP, diagnosed in his 20s he thinks, hasn't had recent cardiac testing. Has a very significant fmhx of cardiac disease. Father suddenly at age 46 from an acute heart attack. Last cardiac testing for All was in his 20s. Does have palpitations and occasional shortness of breath feeling. Did also have covid 19 infection Mar 2020 and felt that this likely also contributing to an intermittent dry cough and dyspnea that he has. Doesn't usually get chest pain but has in the past. 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 Has a sore bulge in upper mid abdomen. Hx of heavy lifting. No known hernia in the past. No bowel changes or blood in stool. No vomiting or nausea Hasn't had recent blood work PAST MEDICAL HISTORY Diagnosis Date Mitral valve disorder takes antibiotic before dental and surgeries PAST SURGICAL HISTORY Procedure Laterality Date PAST SURGICAL HISTORY OF dislocated hand and injured wrist PAST SURGICAL HISTORY OF right patella fracture Social History: Social History Tobacco Use Smoking status: Some Days Types: Cigars Smokeless tobacco: Former Types: Chew Substance Use Topics Alcohol use: Yes Comment: social, 1-2 a month Drug use: No FAMILY HISTORY Problem Relation Age of Onset other (Other [Other]) Mother MVP Heart Father Hypertension Father age 46 massive NM Current Outpatient prescriptions: iv contrast (will be provided with radiology test) CT ABD/PEL -Inject, intravenously, once for 1 dose.No IV access, insert saline lock prior to the beginning of sedation, infusion, injection of imaging exam. Discontinue saline lock post exam. If Pt. has a central line or IVAD, may access for administration according to line specific nursing protocol. Once exam is complete flush line and de-access according to line specific nursing protocol in the CT contrast administration guidelines link. enteric contrast (will be provided with radiology test) For CT ABD/PEL W IVCON Routine order Administer, As Directed One Time Only, via Oral, Rectal, both Oral and Rectal, Enteric Tube, Stoma or Indwelling Catheter, Enteric Contrast as designated per enteric contrast guidelines sulfamethoxazole-trimet hoprim 800-160 mg ORAL per tablet Take 1 tablet by mouth twice daily. docusate sodium (COLACE) 100 mg ORAL capsule Take 1 capsule by mouth twice daily. DAILY MULTI-VITAMIN ORAL Take by mouth once daily. Allergies: ALLERGIES No Known Allergies ROS: See HPI PE: 02/19/231930 BP: 124/80 Pulse: 80 Resp: 16 Temp: 36.4 ?C (97.6 ?F) TempSrc: Right Tympanic Weight: 93.9 kg (207 lb) Gen: AANDO, NAD, non-toxic appearing, Pleasant, cooperative HEENT: NT/AC, PERRLA, EOMs intact b/l, nares clear and patent b/l, pharynx without erythema, exudate or lesions. Uvula midline. MMM, EACs without erythema or debris. TMs pearly herrera with intact landmarks b/l. Neck: supple, No cervical LAD, no thyromegaly, no carotid bruits CV: RRR, normal S1 and S2, no murmurs, + mid systolic click left lower chest wall laterally, no gallops, no rubs, Pulses 2+ and symmetric in UE and LE b/l Lungs: normal respiratory effort, CTA b/l, no wheezing or rhonchi or rales Abd: soft, overweight, bulge in upper mid abdomen/epigastric area and bulge in umbilical area as well with soreness. ND, +BS, no hepatosplenomegaly MS: FROM all 4 extremities Neuro: CN II-XII intact b/l, strength 5/5 b/l UE and LE, DTRs 2/4 UE and LE, sensation intact. Skin: warm, dry, intact, atypical nevus left mid abdominal wall No edema ASSESSMENT/PLAN: 1. MVP (mitral valve prolapse) - ICD9: 424.0, ICD10: I34.1 (primary diagnosis) Need for ECG, ECHO and stress testing as ordered, has a very significant fmhx of early cardiac disease and premature sudden cardiac in father at age 46. Need for fasting labs as well - ECG COMPLETE - ECHO - PERFLUTREN LIPID MICROSPHERES 1.1 MG/ML INJECTION IN NS 10 ML - SODIUM CHLORIDE 0.9 % (FLUSH) INJECTION SYRINGE - EXERCISE STRESS ECG (WITHOUT IMAGING) 2. Other chest pain - ICD9: 786.59, ICD10: R07.89 Need for ECG, ECHO and stress testing as ordered, has a very significant fmhx of early cardiac disease and premature sudden cardiac in father at age 46. Need for fasting labs as well - ECG COMPLETE - ECHO - PERFLUTREN LIPID MICROSPHERES 1.1 MG/ML INJECTION IN NS 10 ML - SODIUM CHLORIDE 0. (more content not included)... Normal [facility] [facility] GAST[facility] ([id number]) 1980 M Date Time Provider Department 02/10/23 [facility] During your visit today, we recorded the following information about you: Chris Forrester DO 02/12/2023 8:47 AM Signed Please add him to my schedule Wed 02/19 at 730 pm for hernia concerns. Patient aware of appt DO Missy Kaminski Susan LPN 02/12/2023 9:58 AM Signed Appt. made. Allergies As of Date: 02/10/2023 (No Known Allergies) Date Reviewed: 08/27/2011 Reviewed by: Kristal Nam Ma - Fully Assessed Prescriptions as of 02/12/2023 - sulfamethoxazole-trimet hoprim 800-160 mg ORAL per tablet Take 1 tablet by mouth twice daily. - docusate sodium (COLACE) 100 mg ORAL capsule Take 1 capsule by mouth twice daily. - DAILY MULTI-VITAMIN ORAL Take by mouth once daily. Problem List As Of Date 02/10/2023 Noted Resolved Fracture of right patella [S82.001A] 04/04/2011 Wound drainage [L24.A9] 08/20/2011 08/27/2011 Encounter Status:Closed by HEIDI SHEPPARD LPN on 02/12/23 [facility]2023 [facility] ALL GASTELUM ([id number]) 1980 M Date Time Provider Department 01/15/23 CHRIS FORRESTER [facility] During your visit today, we recorded the following information about you: Devorah Jones 01/15/2023 5:04 PM Signed Pts is a pt and friend of Dr. Forrester. She states she has talked to Dr. Forrester a while ago about getter her established with her. Please verify it is okay to schedule pt with Dr. Forrester. Chris Forrester DO 01/15/2023 8:33 PM Signed Yes, would need 40 min appt DO Eileen Kaminski Ida 01/16/2023 4:36 PM Signed Patient notified and scheduled in May 07, 2023 Sydney Arellano Allergies As of Date: 01/15/2023 (No Known Allergies) Date Reviewed: 08/27/2011 Reviewed by: Kristal Nam Ma - Fully Assessed Reason for Visit: Future Appointment [256] Prescriptions as of 01/16/2023 - sulfamethoxazole-trimet hoprim 800-160 mg ORAL per tablet Take 1 tablet by mouth twice daily. - docusate sodium (COLACE) 100 mg ORAL capsule Take 1 capsule by mouth twice daily. - DAILY MULTI-VITAMIN ORAL Take by mouth once daily. Problem List As Of Date 01/15/2023 Noted Resolved Fracture of right patella [S82.001A] 04/04/2011 Wound drainage [L24.A9] 08/20/2011 08/27/2011 Encounter Status:Closed by SYDNEY ARELLANO on 01/16/23 Normal [facility] Vital Signs Date Time Vital Sign Value Performing Clinician Tatum badillo 10-08-2023 10:25-0400 Diastolic blood pressure 96 mm[Hg] Mri (I-Stat/1.5t) [facility] 10-08-2023 10:25-0400 Heart rate 64 /min Mri (I-Stat/1.5t) [facility] 10-08-2023 10:25-0400 Systolic blood pressure 150 mm[Hg] Mri (I-Stat/1.5t) [facility] 03-26-2023 13:07-0500 Body height 177.8 cm Lashonda Wolff MD Work Phone: [facility] 03-26-2023 13:07-0500 Body weight 90.5 kg Lashonda Wolff MD Work Phone: [facility] 03-26-2023 13:07-0500 Diastolic blood pressure 72 mm[Hg] Lashonda Wolff MD Work Phone: [facility] 03-26-2023 13:07-0500 Heart rate 69 /min Lashonda Wolff MD Work Phone: [facility] 03-26-2023 13:07-0500 SaO2% (BldA) [Mass fraction] 98 % Lashonda Wolff MD Work Phone: [facility] 03-26-2023 13:07-0500 Systolic blood pressure 118 mm[Hg] Lashonda Wolff MD Work Phone: [facility] Encounters Encounter Date Encounter Type Care Provider Facility Start: 12-30-2023 End: 12-30-2023 Emergency department patient visit Yayo Calixto Facility:[facility] Start: 10-08-2023 End: 10-08-2023 ambulatory CHRIS L FORRESTER Facility:[facility] Start: 10-08-2023 End: 10-08-2023 Subsequent hospital visit by physician Mri Main J (I-Stat/1.5t) MRI J Comment on above: VT (ventricular tach ycardia) ([facility]) [I47.20] Start: 07-28-2023 Telephone encounter Lashonda Wolff MD Work Phone: Cardiology Start: 07-12-2023 Telephone encounter Lashonda Wolff MD Work Phone: Cardiology Start: 05-07-2023 End: 05-07-2023 ambulatory CHRIS L FORRESTER Facility:[facility] Start: 05-01-2023 End: 05-01-2023 ambulatory CHRIS L FORRESTER Facility:[facility] Start: 05-01-2023 End: 05-01-2023 ambulatory CHRIS L FORRESTER Facility:[facility] Start: 04-29-2023 End: 04-29-2023 ambulatory CHRIS L FORRESTER Facility:[facility] Start: 04-15-2023 End: 04-15-2023 ambulatory CHRIS L FORRESTER Facility:[facility] Start: 03-27-2023 Telephone encounter Lashonda Wolff MD Work Phone: Cardiology Start: 03-26-2023 Telephone encounter Lashonda Wolff MD Work Phone: Cardiology Comment on above: Appointment Start: 03-26-2023 End: 03-26-2023 ambulatory CHRIS L FORRESTER Facility:[facility] Start: 03-26-2023 End: 03-26-2023 Patient encounter procedure Lashonda Wolff MD Work Phone: Cardiology Comment on above: Chest discomfort (Pr imary Dx) Start: 03-26-2023 End: 03-26-2023 Subsequent hospital visit by physician [facility] Work Phone: Cardiology Lab Comment on above: MVP (mitral valve pr olapse) [I34.1] Start: 03-10-2023 End: 03-10-2023 ambulatory CHRIS FORRESTER Facility:[facility] Start: 03-10-2023 End: 03-10-2023 Subsequent hospital visit by physician Ct Prep [facility] W[facility] Cat Scan Comment on above: Intra-abdominal and pelvic swelling, mass and lump, unspecified site [R19.00] Start: 03-10-2023 End: 03-10-2023 ambulatory CHRIS FORRESTER Facility:[facility] Start: 02-19-2023 Encounter for lc enamorado adult medical examination without abnormal findings CHRIS FORRESTER [facility] Start: 02-19-2023 End: 02-19-2023 ambulatory CHRIS FORRESTER Facility:[facility] Start: 02-19-[address] Wstr [facility] Work Phone: Start: 02-10-2023 Telephone encounter Chris lacey DO Work Phone: [facility] [place] Start: 01-15-2023 Telephone encounter Chris lacey DO Work Phone: [facility] [place] Comment on above: Future Appointment Procedures Date Procedure Procedure Detail Performing Clinician Start: 10-08-2023 Cardiac mri for [facility] flow mapping Lashonda Wolff MD Work Phone: Start: 03-26-2023 Cv strs tst xers&/or rx cont ecg trcg only Chris Forrester DO Work Phone: Start: 03-10-2023 Ct abdomen & pelvis w/contrast material Chris Forrester DO Work Phone: Start: 03-10-2023 Lipid 1996 panel - S dennise or Plasma Ct Wstr Plan of Treatment Date Care Activity Detail Author Start: 03-10-2028 Lipid 1996 panel - Serum or Plasma Lipid Screening [facility] Start: 03-10-2028 Lipid panel Lipid Screening [facility] Start: 05-07-2024 Covid-19 Vaccine () Covid-19 Vaccine ( season) [facility] Comment on above: Postponed from 12/27 (Declined at this time) Start: 12-28-2023 Influenza vaccination Influenz a Vaccine (Season Ended) [facility] Start: 10-26-2023 Influenza vaccination Influenza Vacc ine (#1) [facility] Comment on above: Postponed from 12/27 (Declined at this time) Start: 07-12-2023 End: 08-11-2024 MR Heart cine for blood flow velocity mapping MRI CARDIAC VELOCITY FLOW MAP Radiology Routine VT (ventricular tachycardia) (HCC) Expected: 07/12/2023, Expires: 08/11/2024 [facility] Work Phone: Comment on above: Expected: 07/12/2023 , Expires: 08/11/2024 Start: 07-12-2023 End: 08-11-2024 MRI CARDIAC MORPH FUNC WO/W IVCON MRI CARDIAC MORPH FUNC WO/W IVCON Radiology Routine VT (ventricular tachycardia) (HCC) Expected: 07/12/2023, Expires: 08/11/2024 [facility] Work Phone: Comment on above: Expected: 07/12/2023 , Expires: 08/11/2024 Start: 04-28-2023 Behavioral Health Screening Behavioral Health Screening [facility] Start: 12-27-2022 Influenza vaccination Influenza Vacc ine (#1) [facility] Start: 04-28-2022 Depression Assessment Depression Ass essment [facility] Start: 02-09-2016 Lipid 1996 panel - Serum or Plasma Lipid Screening [facility] Start: 02-09-2000 Hepatitis B Vaccine (1 of 3 - 19+ 3-dose series) Hepatitis B Vaccine (1 of 3 - 19+ 3-dose series) [facility] Start: 02-09-2000 Urine microalbumin profile DTaP,Tdap,Td Vaccine (1 - Tdap) [facility] Start: 1999 Hepatitis C Screening Hepatitis C [facility] Start: 1999 Hepatitis C screening Hepatitis C [facility] Start: 1999 HIV Screening HIV Screening [facility] Start: 1999 HIV screening HIV Screening [facility] Start: 1987 Pneumococcal vaccination Pneumococcal Vaccine (1 - PCV) [facility] Start: 1981 Covid-19 Vaccine (#1) Covid-19 Vacci ne (#1) [facility] Start: 1981 Hepatitis B Vaccine (1 of 3 - 3-dose series) Hepatitis B Vaccine (1 of 3 - 3-dose series) [facility] Payers Date Payer Category Payer Self-pay 2018 Unknown [employer] PPO [id number] 2018-Present [phone] [address] [place] [address] PPO [id number] 2018 Unknown [id number] Unknown [id number] Social History Date Type Detail Facility Start: 03-25-2011 Tobacco smoking stat [facility] Occasional tobacco smoker [facility] Work Phone: History of tobacco use Cigar Smoker [facility] Work Phone: Start: 03-25-2011 Tobacco use and exposure Former smokeless tobacco user [facility] Work Phone: History of tobacco use Chews Tobacco [facility] Work Phone: Start: 08-16-2011 End: 05-07-2023 Alcohol intake Current drinker of alcohol (finding) [facility] Start: 08-09-2011 Alcohol Comment social, 1-2 a month [facility] Start: 1980 Sex Assigned At Not on file [facility] Start: 02-19-2023 End: 05-07-2023 Gender identity Not on file [facility] Start: 02-19-2023 End: 05-07-2023 History of Social function [facility] Has the [employer], [employer], or water [employer] threatened to shut off services in your home in past 12Mo No [facility] How often do you att end mormonism or christian services? Patient refused [facility] Are you now , , , , never or living with a partner? [facility] How often to you hav e a drink containing alcohol? 2-4 times a month [facility] How many standard drinks containing alcohol do you have on a typical day? 1 or 2 [facility] How often do you hav e 6 or more drinks on 1 occasion? Less than monthly [facility] Do you feel stress - tense, restless, nervous, or anxious, or unable to sleep at night because your mind is troubled all the time - these days [OSQ] To some extent [facility] (I/We) worried [facility] (my/our) food would run out before (I/we) got money to buy more. Never true [facility] Start: 05-01-2023 Tobacco smoking stat us NHIS Ex-smoker [facility] History of tobacco use Current smoker [facility] Start: 05-01-2023 Tobacco use and exposure User of smokeless tobacco [facility] Medical Equipment Procedure Code Equipment Code Equipment Origin al Text Equipment Identifier Dates Utw-Nc-I-Kind Implant - [id number] Start: 03-29-2011 Comment on above: Description: 18 GA s tainless steel cerclage wire 16 inches Wire Fix .062in 6in Krsh Ss - [id number] Start: 03-29-2011 Comment on above: Description: K-Wire Clinical Notes 08-20-2011 to 10-08-2023 Britney Mendez RN - 10/08/2023 10:30 AM Win Carter RT(R) - 10/08/2023 10:30 AM EDTTelephone Encounter - Lashonda Wolff MD - 07/28/2023 2:22 PM EDT Note Date & Type Note Facility 10-08-2023 History of Presen t illness Narrative Radiology Service Progress Note DATE OF SERVICE: October 08, 2023 TIME: 10:23 AM PATIENT WEIGHT: 185LBS PATIENT IDENTITY VERIFICATION COMPLETED USING TWO (2) STANDARD IDENTIFIERS: Name and Date of confirmed by patient verbally and Name and Date of confirmed by identification band. FALL SCREENING: Has the patient had 2 falls in the last year or 1 fall with injury or currently using an Ambulatory Assistive Device (Walker, Cane, Wheelchair, Crutches, etc.)? No PATIENT GENDER DATA: Male ALLERGIES: Reviewed and unchanged CONTRAST ALLERGY: No EXAM: MRI - CONTRAST TYPE: GROUP II IV SITE: Ambulatory: A peripheral IV was started in the Right antecubital site with a Angio cath: 20 gauge. and A Saline lock was inserted per protocol IV SITE APPEARANCE: Clean,Dry and Intact SIGNATURE: Britney Mendez RN PATIENT NAME: All Gastelum DATE: October 08, 2023 TIME: 10:23 AM Radiology Service Progress Note PATIENT NAME: All Gastelum DATE OF SERVICE: October 08, 2023 TIME: 11:25 AM PATIENT IDENTITY VERIFICATION COMPLETED USING TWO (2) IDENTIFIERS: Name and Date of confirmed by patient verbally and Name and Date of confirmed by identification band. FALL SCREENING: Has the patient had 2 falls in the last year or 1 fall with injury or currently using an Ambulatory Assistive Device (Walker, Cane, Wheelchair, Crutches, etc.)? No PATIENT GENDER DATA: Male PATIENT RELEVANT IMPLANT DATA REVIEWED: Yes PATIENT PRESENTS WITH AN IMPLANTABLE OR ATTACHED CLOCK AND WATCH HANDS DIPPER: No RADIOLOGY DEPARTMENT: MR; Exam(s) Completed: Cardiac: Cardiac PERIPHERAL IV DATA: Site assessment: Clean,Dry and Intact, Site disposition Discontinued SIGNED BY: RT Morena(R)Denise October 08, 2023 11:25 AM documented in this encounter [facility] 10-08-2023 Note HNO ID: [id number] Author: BRITNEY MENDEZ RN Service: ? Author Type: Registered Nurse Type: Progress Notes Filed: 10/08/2023 10:28 Note Text: Radiology Service Progress Note DATE OF SERVICE: October 08, 2023 TIME: 10:23 AM PATIENT WEIGHT: 185LBS PATIENT IDENTITY VERIFICATION COMPLETED USING TWO (2) STANDARD IDENTIFIERS: Name and Date of confirmed by patient verbally and Name and Date of confirmed by identification band. FALL SCREENING: Has the patient had 2 falls in the last year or 1 fall with injury or currently using an Ambulatory Assistive Device (Walker, Cane, Wheelchair, Crutches, etc.)? No PATIENT GENDER DATA: Male ALLERGIES: Reviewed and unchanged CONTRAST ALLERGY: No EXAM: MRI - CONTRAST TYPE: GROUP II IV SITE: Ambulatory: A peripheral IV was started in the Right antecubital site with a Angio cath: 20 gauge. and A Saline lock was inserted per protocol IV SITE APPEARANCE: Clean,Dry and Intact SIGNATURE: Britney Mendez RN PATIENT NAME: All Gastelum DATE: October 08, 2023 TIME: 10:23 AM [facility] 10-08-2023 Note HNO ID: [id number] Author: WIN WOLF RT(R) Service: Radiology Author Type: Technologist Type: Progress Notes Filed: 10/08/2023 11:26 Note Text: Radiology Service Progress Note PATIENT NAME: All Gastelum DATE OF SERVICE: October 08, 2023 TIME: 11:25 AM PATIENT IDENTITY VERIFICATION COMPLETED USING TWO (2) IDENTIFIERS: Name and Date of confirmed by patient verbally and Name and Date of confirmed by identification band. FALL SCREENING: Has the patient had 2 falls in the last year or 1 fall with injury or currently using an Ambulatory Assistive Device (Walker, Cane, Wheelchair, Crutches, etc.)? No PATIENT GENDER DATA: Male PATIENT RELEVANT IMPLANT DATA REVIEWED: Yes PATIENT PRESENTS WITH AN IMPLANTABLE OR ATTACHED CLOCK AND WATCH HANDS DIPPER: No RADIOLOGY DEPARTMENT: MR; Exam(s) Completed: Cardiac: Cardiac PERIPHERAL IV DATA: Site assessment: Clean,Dry and Intact, Site disposition Discontinued SIGNED BY: Win Wolf RT(R), Denise LAND October 08, 2023 11:25 AM [facility] 07-28-2023 Miscellaneous Notes I spoke to All states that he is down from 25 mg metoprolol succinate to 12.5 mg once a day. He is unsure whether headaches are related to beta-ramon or if he were dehydrated that day. He will try to uptitrate to 25 mg dosing on a day when he is not working. He was counseled on proper hydration. He is also trying to cut back on caffeine intake. He will keep us updated on any symptoms. documented in this encounter [facility] 07-18-2023 Miscellaneous Notes Patient is scheduled documented in this encounter [facility] 07-12-2023 Miscellaneous Notes I spoke to All and reviewed his vehicle monitor technician with him showed 6 beat run of nonsustained VT (218 bpm), <1% VE, <1% SVE. -Arrange for cardiac MRI to assess for LGE. He would like to start taking his exercise more seriously. -He will attempt to cut back on stimulants including caffeine. -Metoprolol succinate 25 mg p.o. daily. He will start out by taking half a tablet a day for 3 to 5 days and once tolerating well, increase his metoprolol dose to 25 mg po daily. -ASCVD 6.9%. He is declining statin at this time (has family history of premature CAD) will work on incorporating low-cholesterol diet. Recommend repeating lipid panel in 3-6 months. documented in this encounter [facility] 05-07-2023 Note HNO ID: [id number] Author: CHRIS FORRESTER, DO Service: ? Author Type: Physician Type: Progress Notes Filed: 05/07/2023 12:14 Note Text: CC: All Gastelum is a 43 year old male who presents to the office to establish care. HPI: Seen in office Jan 2023, at that time Hx of MVP, diagnosed in his 20s he thinks, hasn't had recent cardiac testing. Has a very significant fmhx of cardiac disease. Father suddenly at age 46 from an acute heart attack. Last cardiac testing for All was in his 20s. Does have palpitations and occasional shortness of breath feeling. Did also have covid 19 infection Mar 2020 and felt that this likely also contributing to an intermittent dry cough and dyspnea that he has. Doesn't usually get chest pain but has in the past. 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 Has a sore bulge in upper mid abdomen. Hx of heavy lifting. No known hernia in the past. No bowel changes or blood in stool. No vomiting or nausea Hasn't had recent blood work Currently HPL, he is working on diet and exercise in a regular way. He is cutting back on tobacco use with dipping, he doesn't smoke He had ECHO and ECG and exercise stress testing and overall this was normal/stable. Trace mitral valve regurgitation was seen only. He has been evaluated further by [facility] Splitter and will be wearing 2 week vehicle monitor technician due to minimal ventricular trigeminy seen on his stress testing. Umbilical hernia. He was evaluated by Dr Klein general surgeon. Likely able to have repair done without mesh. He is interested in pursuing this upcoming. No chest pressure or pain or dyspnea or dizziness/Lh. Only fatigue symptoms that are chronic. PAST MEDICAL HISTORY Diagnosis Date Chronic cough Family history of premature coronary artery disease Family history of sudden cardiac in father Fractured patella Mitral valve disorder takes antibiotic before dental and surgeries Palpitations PAST SURGICAL HISTORY Procedure Laterality Date PAST SURGICAL HISTORY OF dislocated hand and injured wrist PAST SURGICAL HISTORY OF right patella fracture Social History: Social History Tobacco Use Smoking status: Former Types: Cigars Smokeless tobacco: Current Types: Chew Vaping Use Vaping Use: Never used Substance Use Topics Alcohol use: Yes Comment: social, 1-2 a month Drug use: No FAMILY HISTORY Problem Relation Age of Onset other (Other [Other]) Mother MVP Heart Father Hypertension Father age 46 massive NM Current Outpatient prescriptions: sulfamethoxazole-trimethoprim 800-160 mg ORAL per tablet Take 1 tablet by mouth twice daily. (Patient not taking: Reported on 04/15/2023) docusate sodium (COLACE) 100 mg ORAL capsule Take 1 capsule by mouth twice daily. (Patient not taking: Reported on 04/15/2023) DAILY MULTI-VITAMIN ORAL Take by mouth once daily. (Patient not taking: Reported on 04/15/2023) Allergies: ALLERGIES No Known Allergies ROS: See HPI PE: 05/07/23920 BP: 116/80 Pulse: 64 Resp: 16 Temp: 36.2 ?C (97.1 ?F) TempSrc: Left Tympanic Weight: 90.7 kg (200 lb) Height: 176 cm (5' 9.29) Gen: AANDO, NAD, non-toxic appearing, Pleasant, cooperative HEENT: NT/AC, PERRLA, EOMs intact b/l, nares clear and patent b/l, pharynx without erythema, exudate or lesions. Uvula midline. EACs without erythema or debris. TMs pearly herrera with intact landmarks b/l. Neck: supple, No cervical LAD, no thyromegaly, no carotid bruits CV: RRR, normal S1 and S2, no murmurs, no gallops, no rubs, Pulses 2+ and symmetric in UE and LE b/l Lungs: normal respiratory effort, CTA b/l, no wheezing or rhonchi or rales Abd: soft, NT, + umbilical hernia reducible small MS: FROM all 4 extremities Neuro: CN II-XII intact b/l, strength 5/5 b/l UE and LE, DTRs 2/4 UE and LE, sensation intact. Skin: warm, dry, intact, No rashes or lesions on exposed skin. ASSESSMENT/PLAN: 1. Umbilical hernia without obstruction or gangrene - ICD9: 553.1, ICD10: K42.9 (primary diagnosis) He is going to follow up with Dr. Klein for repair surgery, he is now cleared for procedure in primary care office as well as by Mica Splitter 2. Trace mitral regurgitation by prior echocardiogram - ICD9: 424.0, ICD10: I34.0 See above, minimal, will repeat echo in 2-3 years as d/w him and today 3. Hyperlipidemia, mixed - ICD9: 272.2, ICD10: E78.2 - Uncontrolled - Counseled on healthy diet and regular exercise - Discussed need for and benefit of weight loss. BMI 29.29 kg/(m2) 4. Fatigue, unspecified type - ICD9: 780.79, ICD10: R53.83 Chronic, stable, he is starting exercise routine. Chris Forrester DO To ER if develops chest pain, shortness of breath, or severe worsening of symptoms. Discussed risks, benefits, alternatives, and potential side effects of medications. Patient expressed understanding and agreed with the plan. Chris Forrester DO [address] (more content not included)... [facility] 05-01-2023 Note HNO ID: [id number] Author: SARAI DE LA VEGA RT(R) Service: ? Author Type: Technologist Type: Progress Notes Filed: 05/01/2023 14:58 Note Text: Radiology Service Progress Note PATIENT NAME: All Gastelum DATE OF SERVICE: May 01, 2023 TIME: 2:58 PM PATIENT IDENTITY VERIFICATION COMPLETED USING TWO (2) IDENTIFIERS: Name and Date of confirmed by patient verbally. FALL SCREENING: Has the patient had 2 falls in the last year or 1 fall with injury or currently using an Ambulatory Assistive Device (Walker, Cane, Wheelchair, Crutches, etc.)? No PATIENT GENDER DATA: Male PATIENT RELEVANT IMPLANT DATA REVIEWED: Not Applicable RADIOLOGY DEPARTMENT: General X-ray: Exam(s) Completed: Chest X-Ray PERIPHERAL IV DATA: Not applicable SIGNED BY: RT Nila(R) May 01, 2023 2:58 PM [facility] 05-01-2023 Note HNO ID: [id number] Author: LASHONDA WOLFF MD Service: ? Author Type: Physician Type: Progress Notes Filed: 05/01/2023 11:09 Note Text: [facility] [place] SECTION OF REGIONAL CARDIOLOGY OUTPATIENT VISIT DATE 03/26/2023 OUTPATIENT VISIT TYPE Established PRIMARY CARE PHYSICIAN: Chris Forrester [address] [phone] Patient is being seen for follow up visit. HISTORY OF PRESENT ILLNESS: Mr. Gastelum is a 43 year old male, hx of MVP, COVID in 2019, family hx of SCD in his father, chews tobacco, presents for follow up visit. He was initially referred for evaluation of SOB and palpitations. He is accompanied by his . He denies angina, shortness of breath, palpitations, orthopnea, PND, lightheadedness, syncope. EKG reviewed: NSR HR 69. Thyroid function testing was done on 03/10/2023: TSH 1.84, free T4 1.4, free T3 3.4. Lipid panel reviewed 03/10/2023: Total cholesterol 208, LDL 146, HDL 33, triglycerides 143. Exercise stress testing 03/26/23 showed HR 54- 173. Exercise time 11:30 mins. 10.2 METS. 97% MPHR. Peak BP 180/[address] changes. Noted to have ventricular couplets and triplets ECHO showed EF 55+/-5%, mild MR PAST MEDICAL HISTORY Diagnosis Date Chronic cough Family history of premature coronary artery disease Family history of sudden cardiac in father Fractured patella Mitral valve disorder takes antibiotic before dental and surgeries Palpitations PAST SURGICAL HISTORY Procedure Laterality Date PAST SURGICAL HISTORY OF dislocated hand and injured wrist PAST SURGICAL HISTORY OF right patella fracture Social History Tobacco Use Smoking status: Some Days Types: Cigars Smokeless tobacco: Former Types: Chew Vaping Use Vaping Use: Never used Substance Use Topics Alcohol use: Yes Comment: social, 1-2 a month Drug use: No FAMILY HISTORY Problem Relation Age of Onset other (Other [Other]) Mother MVP Heart Father Hypertension Father age 46 massive [place] ALLERGIES No Known Allergies CURRENT MEDICATIONS: sulfamethoxazole-trimethoprim 800-160 mg ORAL per tablet Take 1 tablet by mouth twice daily. (Patient not taking: Reported on 04/15/2023) docusate sodium (COLACE) 100 mg ORAL capsule Take 1 capsule by mouth twice daily. (Patient not taking: Reported on 04/15/2023) DAILY MULTI-VITAMIN ORAL Take by mouth once daily. (Patient not taking: Reported on 04/15/2023) PHYSICAL EXAMINATION: BP 130/84 Pulse (!) 58 Ht 177.8 cm (5' 10) Wt 90.9 kg (200 lb 6.4 oz) SpO2 100% BMI 28.75 kg/m? General: Appears comfortable in no apparent cardiopulmonary distress Neck: No JVD, no bruits CVS: S1, S2, No m/r/g Chest: CTAB Abd: Soft, nontender, no masses, BS present Ext: No pedal edema, pedal pulses 2+ bilaterally Neuro: No focal neurological deficits CARDIOVASCULAR MEDICINE TESTING: I have personally reviewed ECG. IMPRESSION/ PLAN: Mitral regurgitation Mild MR per TTE. - Continue to monitor with TTE in 3 years Ventricular ectopy Noted to have ventricular couplets and triplets during the stress test. -Arrange for a 14-day Zio patch. He states that he will place the monitor on after he cuts back on caffeine intake. Monitor was provided to him in hand at today's visit. -He will make a follow-up appointment after he completes wearing his Zio patch for 2 weeks. [facility] 04-16-2023 Note HNO ID: [id number] Author: Azul Klein MD Service: ? Author Type: Physician Type: Progress Notes Filed: 04/16/2023 5:30 AM Note Text: HISTORY AND PHYSICAL All Gastelum 1980 REFERRING PHYSICIAN: Chris Forrester DO CHIEF COMPLAINT: Consult (Umbilical hernia w/o obstruction or gangrene) HPI: The patient is a 43 year old male with a complaint of discomfort in his epigastric and xiphoid region. The patient notes discomfort when leaning against his upper xiphoid area or at times with lifting or twisting. He states it feels like a piece of cartilage is bothering him. He does note the discomfort is worse after eating. He feels at times like it is a sore bulge in the area. He was seen by Dr. Forrester noted to have a small bulge in the upper abdomen to midepigastric area and a small umbilical hernia that was tender to palpation. He states the umbilical hernia does not bother him unless someone is pressing on it. The patient also has a strong family history of cardiac disease history of mitral valve prolapse. He notes a sensation of palpitations and occasional shortness of breath. Does not smoke but he does chew tobacco. CT scan of the abdomen pelvis was obtained. This demonstrated: IMPRESSION: 1. Small fat-containing umbilical hernia. 2. Additional incidental findings include: Small subcentimeter left renal angiomyolipoma. Uncomplicated colonic diverticulosis. No upper abdominal defects or hernias were noted. The patient is being seen by me today at the request of Dr. Chris Forrester DO for my opinion and advice regarding a general asymptomatic umbilical hernia and epigastric discomfort. PAST MEDICAL HISTORY Diagnosis Date Chronic cough Family history of premature coronary artery disease Family history of sudden cardiac in father Fractured patella Mitral valve disorder takes antibiotic before dental and surgeries Palpitations PAST SURGICAL HISTORY Procedure Laterality Date PAST SURGICAL HISTORY OF dislocated hand and injured wrist PAST SURGICAL HISTORY OF right patella fracture Current Outpatient Medications Medication Sig sulfamethoxazole-trimethoprim 800-160 mg ORAL per tablet Take 1 tablet by mouth twice daily. (Patient not taking: Reported on 04/15/2023) docusate sodium (COLACE) 100 mg ORAL capsule Take 1 capsule by mouth twice daily. (Patient not taking: Reported on 04/15/2023) DAILY MULTI-VITAMIN ORAL Take by mouth once daily. (Patient not taking: Reported on 04/15/2023) No current facility-administered medications for this visit. ALLERGIES: Patient has no known allergies. PERSONAL HISTORY: Social History Tobacco Use Smoking status: Some Days Types: Cigars Smokeless tobacco: Former Types: Chew Vaping Use Vaping Use: Never used Substance Use Topics Alcohol use: Yes Comment: social, 1-2 a month Drug use: No FAMILY HISTORY: FAMILY HISTORY Problem Relation Age of Onset other (Other [Other]) Mother MVP Heart Father Hypertension Father age 46 massive NM REVIEW OF SYMPTOMS: The review of systems data was entered by the nurse and reviewed by me Nursing Notes: Sherita Aaron LPN 04/15/2023 2:10 PM Signed REVIEW OF SYSTEMS: General: The patient NOTES fatigue, denies weight loss, denies weight gain, denies feeling hot, and denies feelings of cold. Eyes: The patient denies glaucoma, denies eye injury/surgery, does not wear glasses or contacts. Ear/Nose/Throat: The patient denies allergies, denies hayfever, denies ear infections, and denies bloody noses. Cardiovascular: The patient denies chest pain, denies heart disease, denies high blood pressure,denies cardiac stent, denies prior heart attack, denies irregular heart beat, denies high cholesterol, denies poor circulation, denies heart failure, other cardiac issues, denies claudication, denies cold feet, denies peripheral arterial stent. Respiratory: The patient denies tuberculosis, denies pneumonia, denies frequent cough, denies pulmonary embolism, denies shortness of breath, and denies coughing up blood. Gastrointestinal: The patient denies difficulty swallowing, denies acid reflux, denies ulcers, denies vomiting, denies jaundice/hepatitis, denies gallbladder problems, denies black or tarry stools, denies hemorrhoids, denies bleeding from rectum, denies diverticulitis, denies constipation, denies diarrhea, denies loss of stool control, and denies hernias. Kidney/Bladder: The patient denies kidney stones, denies urine infections, and denies bloody urine. Skin: The patient denies a history of skin cancer, denies bleeding/changing moles, and denies a history of skin rash. Neurologic: The patient denies a history of epilepsy/convulsions, denies headaches, denies head/spinal injuries, and denies stroke/TIA. Psychiatric: The patient denies psychiatric medications, denies depression, and denies voices, denies substance abuse (more content not included)... [facility] 03-27-2023 Miscellaneous Notes I attempted to contact patient via telephone to review his stress test results however there was no answer. It showed ventricular couplet and triplets per report. Recommend 14 day Ziopatch. 03/28/23 15:03: I re-attempted to call Mr. Gastelum via the telephone number provided however there was no answer. documented in this encounter [facility] 03-26-2023 Miscellaneous Notes Patient needs appointment with Dr Wolff after his echo when schedule opens up documented in this encounter [facility] 03-26-2023 History of Presen t illness Narrative Images from the original note were not included. [facility] SECTION OF REGIONAL CARDIOLOGY OUTPATIENT VISIT DATE 03/26/2023 OUTPATIENT VISIT TYPE NEW PRIMARY CARE PHYSICIAN: Chris Forrester [address] [place] [address] Patient is being seen at the request of the referring physician for Shortness of breath and palpitations. HISTORY OF PRESENT ILLNESS: Mr. Gastelum is a 43 year old male, hx of MVP, COVID in 2019, family hx of SCD in his father, chews tobacco, who is referred for evaluation of SOB and palpitations. He is accompanied by his . He reports a constant discomfort on his left sided chest. Denies palpitations, orthopnea, PND, lightheadedness, syncope. EKG reviewed: NSR HR 69. Thyroid function testing was done on 03/10/2023: TSH 1.84, free T4 1.4, free T3 3.4. Lipid panel reviewed 03/10/2023: Total cholesterol 208, LDL 146, HDL 33, triglycerides 143. PAST MEDICAL HISTORY Diagnosis Date Mitral valve disorder takes antibiotic before dental and surgeries PAST SURGICAL HISTORY Procedure Laterality Date PAST SURGICAL HISTORY OF dislocated hand and injured wrist PAST SURGICAL HISTORY OF right patella fracture Social History Tobacco Use Smoking status: Some Days Types: Cigars Smokeless tobacco: Former Types: Chew Substance Use Topics Alcohol use: Yes Comment: social, 1-2 a month Drug use: No FAMILY HISTORY Problem Relation Age of Onset other (Other [Other]) Mother MVP Heart Father Hypertension Father age 46 massive [place] ALLERGIES No Known Allergies CURRENT MEDICATIONS: sulfamethoxazole-trimethoprim 800-160 mg ORAL per tablet Take 1 tablet by mouth twice daily. docusate sodium (COLACE) 100 mg ORAL capsule Take 1 capsule by mouth twice daily. DAILY MULTI-VITAMIN ORAL Take by mouth once daily. PHYSICAL EXAMINATION: BP 118/72 Pulse 69 Ht 177.8 cm (5' 10) Wt 90.5 kg (199 lb 8.3 oz) SpO2 98% BMI 28.63 kg/m General: Appears comfortable in no apparent cardiopulmonary distress Neck: No JVD, no bruits CVS: S1, S2, No m/r/g Chest: CTAB Abd: Soft, nontender, no masses, BS present Ext: No pedal edema, pedal pulses 2+ bilaterally Neuro: No focal neurological deficits CARDIOVASCULAR MEDICINE TESTING: I have personally reviewed ECG. IMPRESSION/ PLAN: Mitral valve prolapse -He will schedule his echo today at our office building. Chest discomfort - Patient had stress testing performed today. Will contact patient with results. -Counseled on the importance of cessation of tobacco chewing. -Will arrange follow-up visit after echo was performed. -Based on the above, will provide him with exercise recommendations. documented in this encounter [facility] 03-26-2023 Note HNO ID: [id number] Author: Lashonda Wolff MD Service: ? Author Type: Physician Type: Progress Notes Filed: 03/26/2023 2:09 PM Note Text: [facility] SECTION OF REGIONAL CARDIOLOGY OUTPATIENT VISIT DATE 03/26/2023 OUTPATIENT VISIT TYPE NEW PRIMARY CARE PHYSICIAN: Chris Forrester [address] [place] [address] Patient is being seen at the request of the referring physician for Shortness of breath and palpitations. HISTORY OF PRESENT ILLNESS: Mr. Gastelum is a 43 year old male, hx of MVP, COVID in 2019, family hx of SCD in his father, chews tobacco, who is referred for evaluation of SOB and palpitations. He is accompanied by his . He reports a constant discomfort on his left sided chest. Denies palpitations, orthopnea, PND, lightheadedness, syncope. EKG reviewed: NSR HR 69. Thyroid function testing was done on 03/10/2023: TSH 1.84, free T4 1.4, free T3 3.4. Lipid panel reviewed 03/10/2023: Total cholesterol 208, LDL 146, HDL 33, triglycerides 143. PAST MEDICAL HISTORY Diagnosis Date Mitral valve disorder takes antibiotic before dental and surgeries PAST SURGICAL HISTORY Procedure Laterality Date PAST SURGICAL HISTORY OF dislocated hand and injured wrist PAST SURGICAL HISTORY OF right patella fracture Social History Tobacco Use Smoking status: Some Days Types: Cigars Smokeless tobacco: Former Types: Chew Substance Use Topics Alcohol use: Yes Comment: social, 1-2 a month Drug use: No FAMILY HISTORY Problem Relation Age of Onset other (Other [Other]) Mother MVP Heart Father Hypertension Father age 46 massive [place] ALLERGIES No Known Allergies CURRENT MEDICATIONS: sulfamethoxazole-trimethoprim 800-160 mg ORAL per tablet Take 1 tablet by mouth twice daily. docusate sodium (COLACE) 100 mg ORAL capsule Take 1 capsule by mouth twice daily. DAILY MULTI-VITAMIN ORAL Take by mouth once daily. PHYSICAL EXAMINATION: BP 118/72 Pulse 69 Ht 177.8 cm (5' 10) Wt 90.5 kg (199 lb 8.3 oz) SpO2 98% BMI 28.63 kg/m? General: Appears comfortable in no apparent cardiopulmonary distress Neck: No JVD, no bruits CVS: S1, S2, No m/r/g Chest: CTAB Abd: Soft, nontender, no masses, BS present Ext: No pedal edema, pedal pulses 2+ bilaterally Neuro: No focal neurological deficits CARDIOVASCULAR MEDICINE TESTING: I have personally reviewed ECG. IMPRESSION/ PLAN: Mitral valve prolapse -He will schedule his echo today at our office building. Chest discomfort - Patient had stress testing performed today. Will contact patient with results. -Counseled on the importance of cessation of tobacco chewing. -Will arrange follow-up visit after echo was performed. -Based on the above, will provide him with exercise recommendations. [facility] 03-10-2023 History of Presen t illness Narrative Radiology Service Progress Note DATE OF SERVICE: March 10, 2023 TIME: 1:13 PM PATIENT IDENTITY VERIFICATION COMPLETED USING TWO (2) STANDARD IDENTIFIERS: Name and Date of confirmed by patient verbally. FALL SCREENING: Has the patient had 2 falls in the last year or 1 fall with injury or currently using an Ambulatory Assistive Device (Walker, Cane, Wheelchair, Crutches, etc.)? No PATIENT GENDER DATA: Male PATIENT RELEVANT IMPLANT DATA REVIEWED: Yes ALLERGIES: Reviewed and unchanged CONTRAST ALLERGY: NO. EXAM: CT -CONTRAST INDUCED NEPHROPATHY RISK FACTORS: Not applicable CREATININE: Creatinine Date Value Ref Range Status 03/10/2023 1.27 (H) 0.73 - 1.22 mg/dL Final Estimated Glomerular Filtration Rate Date Value Ref Range Status 03/10/2023 72 >=60 mL/min/1.73m Final Comment: Estimated Glomerular Filtration Rate (eGFR) is calculated using the 2020 CKD-EPI creatinine equation. This equation utilizes serum creatinine, sex, and age as parameters. The creatinine assay has traceable calibration to isotope dilution-mass spectrometry. Refer to KDIGO guidelines for clinical interpretation. In patients with unstable renal function, e.g. those with acute kidney injury, the eGFR may not accurately reflect actual GFR. P.O.C.T. RESULTS: POC done: Yes, See Lab Tab March 10, 2023 TREATMENT: N/A PERIPHERAL IV DATA: Ambulatory: A peripheral IV was started in the Left antecubital site with a Angio cath: 22 gauge. RADIOLOGY DEPARTMENT: CT; Exam(s) Completed: Chest Abdomen Pelvis SIGNATURE: RT Ena(Phyllis) PATIENT NAME: All Gastelum DATE: March 10, 2023 TIME: 1:13 PM documented in this encounter [facility] 03-10-2023 Note HNO ID: [id number] Author: Misty Vazquez RT(R) Service: ? Author Type: [employer] Type: Progress Notes Filed: 03/10/2023 1:13 PM Note Text: Radiology Service Progress Note DATE OF SERVICE: March 10, 2023 TIME: 1:13 PM PATIENT IDENTITY VERIFICATION COMPLETED USING TWO (2) STANDARD IDENTIFIERS: Name and Date of confirmed by patient verbally. FALL SCREENING: Has the patient had 2 falls in the last year or 1 fall with injury or currently using an Ambulatory Assistive Device (Walker, Cane, Wheelchair, Crutches, etc.)? No PATIENT GENDER DATA: Male PATIENT RELEVANT IMPLANT DATA REVIEWED: Yes ALLERGIES: Reviewed and unchanged CONTRAST ALLERGY: NO. EXAM: CT -CONTRAST INDUCED NEPHROPATHY RISK FACTORS: Not applicable CREATININE: Creatinine Date Value Ref Range Status 03/10/2023 1.27 (H) 0.73 - 1.22 mg/dL Final Estimated Glomerular Filtration Rate Date Value Ref Range Status 03/10/2023 72 >=60 mL/min/1.73m? Final Comment: Estimated Glomerular Filtration Rate (eGFR) is calculated using the 2020 CKD-EPI creatinine equation. This equation utilizes serum creatinine, sex, and age as parameters. The creatinine assay has traceable calibration to isotope dilution-mass spectrometry. Refer to KDIGO guidelines for clinical interpretation. In patients with unstable renal function, e.g. those with acute kidney injury, the eGFR may not accurately reflect actual GFR. P.O.C.T. RESULTS: POC done: Yes, See Lab Tab March 10, 2023 TREATMENT: N/A PERIPHERAL IV DATA: Ambulatory: A peripheral IV was started in the Left antecubital site with a Angio cath: 22 gauge. RADIOLOGY DEPARTMENT: CT; Exam(s) Completed: Chest Abdomen Pelvis SIGNATURE: RT Ena(R) PATIENT NAME: All Gastelum DATE: March 10, 2023 TIME: 1:13 PM [facility] 02-19-2023 Note HNO ID: [id number] Author: Chris Forrester, DO Service: ? Author Type: Physician Type: Progress Notes Filed: 02/19/2023 9:58 PM Note Text: CC: All Gastelum is a 43 year old male who presents to the office to establish care. HPI: Hx of MVP, diagnosed in his 20s he thinks, hasn't had recent cardiac testing. Has a very significant fmhx of cardiac disease. Father suddenly at age 46 from an acute heart attack. Last cardiac testing for All was in his 20s. Does have palpitations and occasional shortness of breath feeling. Did also have covid 19 infection Mar 2020 and felt that this likely also contributing to an intermittent dry cough and dyspnea that he has. Doesn't usually get chest pain but has in the past. 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 Has a sore bulge in upper mid abdomen. Hx of heavy lifting. No known hernia in the past. No bowel changes or blood in stool. No vomiting or nausea Hasn't had recent blood work PAST MEDICAL HISTORY Diagnosis Date Mitral valve disorder takes antibiotic before dental and surgeries PAST SURGICAL HISTORY Procedure Laterality Date PAST SURGICAL HISTORY OF dislocated hand and injured wrist PAST SURGICAL HISTORY OF right patella fracture Social History: Social History Tobacco Use Smoking status: Some Days Types: Cigars Smokeless tobacco: Former Types: Chew Substance Use Topics Alcohol use: Yes Comment: social, 1-2 a month Drug use: No FAMILY HISTORY Problem Relation Age of Onset other (Other [Other]) Mother MVP Heart Father Hypertension Father age 46 massive NM Current Outpatient prescriptions: iv contrast (will be provided with radiology test) CT ABD/PEL -Inject, intravenously, once for 1 dose.No IV access, insert saline lock prior to the beginning of sedation, infusion, injection of imaging exam. Discontinue saline lock post exam. If Pt. has a central line or IVAD, may access for administration according to line specific nursing protocol. Once exam is complete flush line and de-access according to line specific nursing protocol in the CT contrast administration guidelines link. enteric contrast (will be provided with radiology test) For CT ABD/PEL W IVCON Routine order Administer, As Directed One Time Only, via Oral, Rectal, both Oral and Rectal, Enteric Tube, Stoma or Indwelling Catheter, Enteric Contrast as designated per enteric contrast guidelines sulfamethoxazole-trimethoprim 800-160 mg ORAL per tablet Take 1 tablet by mouth twice daily. docusate sodium (COLACE) 100 mg ORAL capsule Take 1 capsule by mouth twice daily. DAILY MULTI-VITAMIN ORAL Take by mouth once daily. Allergies: ALLERGIES No Known Allergies ROS: See HPI PE: 02/19/231930 BP: 124/80 Pulse: 80 Resp: 16 Temp: 36.4 ?C (97.6 ?F) TempSrc: Right Tympanic Weight: 93.9 kg (207 lb) Gen: AANDO, NAD, non-toxic appearing, Pleasant, cooperative HEENT: NT/AC, PERRLA, EOMs intact b/l, nares clear and patent b/l, pharynx without erythema, exudate or lesions. Uvula midline. MMM, EACs without erythema or debris. TMs pearly herrera with intact landmarks b/l. Neck: supple, No cervical LAD, no thyromegaly, no carotid bruits CV: RRR, normal S1 and S2, no murmurs, + mid systolic click left lower chest wall laterally, no gallops, no rubs, Pulses 2+ and symmetric in UE and LE b/l Lungs: normal respiratory effort, CTA b/l, no wheezing or rhonchi or rales Abd: soft, overweight, bulge in upper mid abdomen/epigastric area and bulge in umbilical area as well with soreness. ND, +BS, no hepatosplenomegaly MS: FROM all 4 extremities Neuro: CN II-XII intact b/l, strength 5/5 b/l UE and LE, DTRs 2/4 UE and LE, sensation intact. Skin: warm, dry, intact, atypical nevus left mid abdominal wall No edema ASSESSMENT/PLAN: 1. MVP (mitral valve prolapse) - ICD9: 424.0, ICD10: I34.1 (primary diagnosis) Need for ECG, ECHO and stress testing as ordered, has a very significant fmhx of early cardiac disease and premature sudden cardiac in father at age 46. Need for fasting labs as well - ECG COMPLETE - ECHO - PERFLUTREN LIPID MICROSPHERES 1.1 MG/ML INJECTION IN NS 10 ML - SODIUM CHLORIDE 0.9 % (FLUSH) INJECTION SYRINGE - EXERCISE STRESS ECG (WITHOUT IMAGING) 2. Other chest pain - ICD9: 786.59, ICD10: R07.89 Need for ECG, ECHO and stress testing as ordered, has a very significant fmhx of early cardiac disease and premature sudden cardiac in father at age 46. Need for fasting labs as well - ECG COMPLETE - ECHO - PERFLUTREN LIPID MICROSPHERES 1.1 MG/ML INJECTION IN NS 10 ML - SODIUM CHLORIDE 0.9 % (FLUSH) INJECTION SYRINGE - EXERCISE STRESS ECG (WITHOUT IMAGING) 3. Palpitations - ICD9: 785.1, ICD10: R00.2 Need for ECG, ECHO and stress testing as ordered, has a very significant fmhx of early cardiac disease and premature sudden cardiac in father at age 46. Need for fastin (more content not included)... [facility] 02-12-2023 Miscellaneous Notes Appt. made. Please add him to my schedule 02/19 at 730 pm for hernia concerns. Patient aware of appt Chris Forrester DO documented in this encounter [facility] 01-16-2023 Miscellaneous Notes Patient notified and scheduled in May 07, 2023 Sydney Arellano Yes, would need 40 min appt Chris Forrester DO Pts is a pt and friend of Dr. Forrester. She states she has talked to Dr. Forrester a while ago about getter her established with her. Please verify it is okay to schedule pt with Dr. Forrester. documented in this encounter [facility] 08-20-2011 History of Past i llness Narrative Problem Noted Date Diagnosed Date Resolved Date Wound drainage 08/20/2011 08/27/2011 documented as of this encounter (statuses as of 01/17/2023) [facility] History of Past illness Narrative* Problem Noted Date Diagnosed Date Resolved Date Wound drainage 08/20/2011 08/27/2011 documented as of this encounter (statuses as of 02/12/2023) [address] History of Past illness Narrative* Problem Noted Date Diagnosed Date Resolved Date Wound drainage 08/20/2011 08/27/2011 documented as of this encounter (statuses as of 03/11/2023) [address] History of Past illness Narrative* Problem Noted Date Diagnosed Date Resolved Date Wound drainage 08/20/2011 08/27/2011 documented as of this encounter (statuses as of 03/11/2023) [address] History of Past illness Narrative* Problem Noted Date Diagnosed Date Resolved Date Wound drainage 08/20/2011 08/27/2011 documented as of this encounter (statuses as of 03/26/2023) [address] History of Past illness Narrative* Problem Noted Date Diagnosed Date Resolved Date Wound drainage 08/20/2011 08/27/2011 documented as of this encounter (statuses as of 03/26/2023) [address] History of Past illness Narrative* Problem Noted Date Diagnosed Date Resolved Date Wound drainage 08/20/2011 08/27/2011 documented as of this encounter (statuses as of 03/27/2023) [address] History of Past illness Narrative* Problem Noted Date Diagnosed Date Resolved Date Wound drainage 08/20/2011 08/27/2011 documented as of this encounter (statuses as of 03/29/2023) [address] History of Past illness Narrative* Problem Noted Date Diagnosed Date Resolved Date Wound drainage 08/20/2011 08/27/2011 documented as of this encounter (statuses as of 07/12/2023) [address] History of Past illness Narrative* Problem Noted Date Diagnosed Date Resolved Date Wound drainage 08/20/2011 08/27/2011 documented as of this encounter (statuses as of 07/18/2023) [address] History of Past illness Narrative* Problem Noted Date Diagnosed Date Resolved Date Wound drainage 08/20/2011 08/27/2011 documented as of this encounter (statuses as of 07/29/2023) [facility] Diagnosis Intra-abdominal and pelvic swelling, mass and lump, unspecified site [facility] Chest discomfort- Primary Other chest pain documented in this encounter [facility]* Diagnosis MVP (mitral valve prolapse) Mitral valve disorders Other chest pain Palpitations Family history of premature coronary artery disease Family history of ischemic heart disease Family history of sudden cardiac in father documented in this encounter [facility] note* Diagnosis VT (ventricular tachycardia) (HCC)- Primary Paroxysmal ventricular tachycardia documented in this encounter [facility] note* Diagnosis VT (ventricular tachycardia) (HCC) Paroxysmal ventricular tachycardia documented in this encounter [facility] for visit Narrative* Diagnostic Procedure Only (Routine) - Closed Specialty Diagnoses / Procedures Referred By Roberto Carlos cook Referred To Contact Cardiology / [facility] Diagnoses Nonrheumatic mitral (valve) prolapse Other chest pain Palpitations Family history of ischemic heart disease and other diseases of the circulatory system Family history of sudden cardiac Dx: MVP (mitral valve prolapse) [I34.1]; Other chest pain [R07.89]; Palpitations [R00.2]; Family history of premature coronary artery disease [Z82.49]; Family history of sudden cardiac in father [Z82.41] Procedures CV STRS TST XERS&/OR RX CONT ECG TRCG ONLY STRESS TEST Chris Forrester, DO [address] [place] [address] [address] [place] [address] Referral ID Status Reason Start Date Expiration Date Visits Re quested Visits Authorized [id number] Closed 03/04/2023 04/27/2023 1 1 [facility] Reason for Referral Specialty Diagnoses / Procedures Referred By Roberto Carlos cook Referred To Contact CT IMAGING Diagnoses Intra-abdominal and pelvic swelling, mass and lump, unspecified site Procedures CT ABD/PEL W IVCON CT ABD & PELVIS W/CONTRAST Chris Forrester, DO [address] [place] [address] [place] [id number] Referral ID Status Reason Start Date Expiration Date V isits Requested Visits Authorized [id number] Closed Auto-Generate d Referral 02/20/2023 04/06/2023 2 2 Specialty Diagnoses / Procedures Referred By Contac t Referred To Contact MR IMAGING Diagnoses VT (ventricular tachycardia) (HCC) Procedures MRI CARDIAC VELOCITY FLOW MAP CARDIAC MRI FOR VELOCITY FLOW MAPPING Lashonda Wolff MD [address] [place] [address] [place] [address] Referral ID Status Reason Start Date Expiration Date Visits Requested Visits Authorized [id number] Pending Review Auto-Generat ed Referral 07/12/2023 08/10/2024 1 1 Specialty Diagnoses / Procedures Referred By Contac t Referred To Contact MR IMAGING Diagnoses VT (ventricular tachycardia) (HCC) Procedures MRI CARDIAC MORPH FUNC WO/W IVCON CARDIAC MRI W/WO CONTRAST & FURTHER SEQ Lashonda Wolff MD [address] [place] [address] Mr Imaging [id number] Referral ID Status Reason Start Date Expiration Date Visits Requested Visits Authorized [id number] Pending Review Auto-Generat ed Referral 07/12/2023 08/10/2024 1 1 Referral ID Status Reason Start Date Expiration Date V isits Requested Visits Authorized [id number] Closed Auto-Generate d Referral 07/12/2023 08/10/2024 1 1 Summary Purpose Family History No Family History Records FoundNo Family History Records FoundNo Family History Records Found Advance Directives No Advanced Directives Records FoundNo Advanced Directives Records FoundNo Advanced Directives Records Found Additional Source Comments Source Comments (unrecognize d section and content) In the event this informatio n is protected by the Federal Confidentiality of Alcohol and Drug Abuse Patient Records regulations: The Federal rules restrict any use of the information to criminally investigate or prosecute any alcohol or drug abuse patient.[facility] the event this information is protected by the Federal Confidentiality of Alcohol and Drug Abuse Patient Records regulations: The Federal rules restrict any use of the information to criminally investigate or prosecute any alcohol or drug abuse patient.[facility] the event this information is protected by the Federal Confidentiality of Alcohol and Drug Abuse Patient Records regulations: The Federal rules restrict any use of the information to criminally investigate or prosecute any alcohol or drug abuse patient.[facility] the event this information is protected by the Federal Confidentiality of Alcohol and Drug Abuse Patient Records regulations: The Federal rules restrict any use of the information to criminally investigate or prosecute any alcohol or drug abuse patient.[facility] the event this information is protected by the Federal Confidentiality of Alcohol and Drug Abuse Patient Records regulations: The Federal rules restrict any use of the information to criminally investigate or prosecute any alcohol or drug abuse patient.[facility] the event this information is protected by the Federal Confidentiality of Alcohol and Drug Abuse Patient Records regulations: The Federal rules restrict any use of the information to criminally investigate or prosecute any alcohol or drug abuse patient.[facility] the event this information is protected by the Federal Confidentiality of Alcohol and Drug Abuse Patient Records regulations: The Federal rules restrict any use of the information to criminally investigate or prosecute any alcohol or drug abuse patient.[facility] the event this information is protected by the Federal Confidentiality of Alcohol and Drug Abuse Patient Records regulations: The Federal rules restrict any use of the information to criminally investigate or prosecute any alcohol or drug abuse patient.[facility] the event this information is protected by the Federal Confidentiality of Alcohol and Drug Abuse Patient Records regulations: The Federal rules restrict any use of the information to criminally investigate or prosecute any alcohol or drug abuse patient.[facility] the event this information is protected by the Federal Confidentiality of Alcohol and Drug Abuse Patient Records regulations: The Federal rules restrict any use of the information to criminally investigate or prosecute any alcohol or drug abuse patient.[facility] the event this information is protected by the Federal Confidentiality of Alcohol and Drug Abuse Patient Records regulations: The Federal rules restrict any use of the information to criminally investigate or prosecute any alcohol or drug abuse patient.[facility] the event this information is protected by the Federal Confidentiality of Alcohol and Drug Abuse Patient Records regulations: The Federal rules restrict any use of the information to criminally investigate or prosecute any alcohol or drug abuse patient.[facility] Reason for Visit (unrecogniz ed section and content) Reason Comments Radiology CT Specialty Diagnoses / Procedures Referred By Roberto Carlos t Referred To Contact CT IMAGING Diagnoses Intra-abdominal and pelvic swelling, mass and lump, unspecified site Procedures CT ABD/PEL W IVCON CT ABD & PELVIS W/CONTRAST Chris Forrester, DO [address] [place] [address] [place] [address] Referral ID Status Reason Start Date Expiration Date V isits Requested Visits Authorized [id number] Closed Auto-Generate d Referral 02/20/2023 04/06/2023 2 2 Reason Comments Future Appointment Reason Comments Appointment Reason Comments CARD New Patient Consult [facility]: MVP, palpi tations, occasional sob, fam hx of heart disease Specialty Diagnoses / Procedures Referred By Roberto Carlos cook Referred To Contact MR IMAGING Diagnoses VT (ventricular tachycardia) (HCC) Procedures MRI CARDIAC VELOCITY FLOW MAP CARDIAC MRI FOR VELOCITY FLOW MAPPING Lashonda Wolff MD [address] [place] [id number] [place] [id number] Referral ID Status Reason Start Date Expiration Date V isits Requested Visits Authorized [id number] Closed Auto-Generate d Referral 07/12/2023 08/10/2024 1 1 Care Teams (unrecognized sec tion and content) Machine Ii Engraver Relationship Specialty Start Date End Date Chris Forrester DO [address] [place] [address] PCP - General Family Medicine 02/12/23 Machine Ii Engraver Relationship Specialty Start Date End Date Chris Forrester DO [address] [place] [address] PCP - General Family Medicine 02/12/23 Machine Ii Engraver Relationship Specialty Start Date End Date Chris Forrester DO [address] [place] [address] PCP - General Family Medicine 02/12/23 Machine Ii Engraver Relationship Specialty Start Date End Date Chris Forrester DO [address] [place] [address] PCP - General Family Medicine 02/12/23 Lashonda Wolff MD [address] [place] [phone] Cardiology 03/26/23 Machine Ii Engraver Relationship Specialty Start Date End Date Chris Forrester DO [address] [place] [address] PCP - General Family Medicine 02/12/23 Lashonda Wolff MD [address] [place] [address] Cardiology 03/26/23 Machine Ii Engraver Relationship Specialty Start Date End Date Chris Forrester DO [address] [place] [address] PCP - General Family Medicine 02/12/23 Lashonda Wolff MD [address] [place] [phone] Cardiology 03/26/23 Machine Ii Engraver Relationship Specialty Start Date End Date Chris Forrester DO [address] [place] [address] PCP - General Family Medicine 02/12/23 Lashonda Wolff MD [address] [place] [phone] Cardiology 03/26/23 Machine Ii Engraver Relationship Specialty Start Date End Date Chris Forrester DO [address] [place] [address] PCP - General Family Medicine 02/12/23 Lashonda Wolff MD [address] [place] [phone] Cardiology 03/26/23 Machine Ii Engraver Relationship Specialty Start Date End Date Chris Forrester DO [address] [place] [address] PCP - General Family Medicine 02/12/23 Lashonda Wolff MD [address] [place], [place] [phone] Cardiology 03/26/23 Machine Ii Engraver Relationship Specialty Start Date End Date Chris Forrseter DO [address] [place] [address] PCP - General Family Medicine 02/12/23 Lashonda Wolff MD [address] [place] [address] Cardiology 03/26/23 Machine Ii Engraver Relationship Specialty Start Date End Date Chris Forrester DO [address] [place] [address] PCP - General Family Medicine 02/12/23 Lashonda Wolff MD [address] [place] [address] Cardiology 03/26/23 (unrecognized sect ion and content) No Status Records FoundNo Status Records FoundNo Status Records Found INFORMATION SOURCE (unrecogn ized section and content) DATE CREATED AUTHOR 03/28/2023 [facility] DATE CREATED AUTHOR AUTHOR'S ORGANIZ ATION 10/09/2023 [facility] DATE CREATED AUTHOR AUTHOR'S ORGANIZ ATION 01/21/2024 [facility] FOR RECORDS PERTAINING TO PATIENTS WHO ARE OR HAVE BEEN ENROLLED IN A CHEMICAL DEPENDENCY/SUBSTANCEABUSE PROGRAM, SOME INFORMATION MAY BE OMITTED. This clinical summary was aggregated from multiple sources. Caution should be exercised in using it in the provision of clinical care. This summary normalizes information from multiple sources, and as a consequence, information in this document may materially change the coding, format and clinical context of patient data. In addition, data may be omitted in some cases. CLINICAL DECISIONS SHOULD BE BASED ON THE PRIMARY CLINICAL RECORDS. [facility], [facility]. provides no warranty or guarantee of the accuracy or completeness of information in this document.
--- NOTE | 2024-10-09 10:50 | RAD_ITS ---
PROCEDURE: L/S SPINE MIN 4 VIEWS 10/09/2024 REASON FOR EXAM: LUMBAR SPRAIN Low back pain for 3 weeks. Lumbar pain after bending. TECHNIQUE: L/S SPINE MIN 4 VIEWS COMPARISON: None FINDINGS: Lumbar spine appears intact. No evidence of fracture. Lumbar vertebral body height appears normal. No significant subluxation or spondylolisthesis. No significant scoliosis. Mild anterior osteophyte formation at L2-3 and L3-4 and L4-5. Mild disc height loss at L4-5 RAD/L/S Spine Min 4 Views IMPRESSION: 1. Mild degenerative changes, as above. 2. No acute findings Reading Location: [facility]
== END | disposition home or self-care (01) ==
LOC: LAB 10:42 → RAD 10:42
PROVIDERS: PCP Student in an Organized Health Care Education/Training Program; Referring Provider Chiropractor; Visit Provider Chiropractor
DX: S33.5XXA Sprain of ligaments of lumbar spine, initial encounter (principal); X58.XXXA Exposure to other specified factors, initial encounter
CPT/HCPCS: 72110